=== PATIENT | male | born 1955 | race Caucasian/White ===

== ENCOUNTER 2017-04-03 19:25 | Emergency (ER) | payer SELFPAY ==
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
--- NOTE | 2017-04-03 21:00 | RADIOLOGY REPORT (SQ) ---
EXAM DESCRIPTION: CT HEAD WITHOUT COMPLETED DATE/TIME: 04/03/2017 8:51 pm REASON FOR STUDY: intoxicated, fall COMPARISON: None. TECHNIQUE: Axial images acquired through the brain without intravenous contrast. Images reviewed wi th bone, brain and subdural windows. Images stored on PACS. All CT scanners at this facility use dose modulation, iterative reconstruction, and/or weight based d osing when appropriate to reduce radiation dose to as low as reasonably achievable (ALARA). [facility]: Dose Right [facility]: CareDose [facility]: Dose Right [facility]: Teradose 4D [facility]: Smart [employer] RADIATION DOSE: Up-to-date CT equipment and radiation dose reduction techniques were employed. CTDIv ol: 64.6 mGy. DLP: 1163 mGy-cm. mGy. LIMITATIONS: None. FINDINGS: VENTRICLES: Prominent. CEREBRUM: No masses. No hemorrhage. No midline shift. Areas of low density in the white matter mos t likely due to chronic micro-vascular ischemic change. No evidence for acute infarction. CEREBELLUM: No masses. No hemorrhage. No alteration of density. No evidence for acute infarction. EXTRAAXIAL SPACES: Mild age-related involutional change. No fluid collections. No masses. ORBITS AND GLOBE: No intra- or extraconal masses. Normal contour of globe without masses. CALVARIUM: No fracture. PARANASAL SINUSES: No fluid or mucosal thickening. SOFT TISSUES: No mass or hematoma. OTHER: No other significant finding. IMPRESSION: MILD CHRONIC CHANGES OF ATROPHY AND MICROVASCULAR ISCHEMIA. NO ACUTE PROCESS. EVIDENCE OF ACUTE STROKE: NO. TECHNICAL DOCUMENTATION: JOB ID: [id number] Quality ID # [id number]: Final reports with documentation of one or more dose reduction techniques (e.g., Au tomated exposure control, adjustment of the mA and/or kV according to patient size, use of iterative reconstruction technique) 2010 [employer]- All Rights Reserved
--- NOTE | 2017-04-03 21:02 | RADIOLOGY REPORT (SQ) ---
EXAM DESCRIPTION: CT CERVICAL SPINE WITHOUT COMPLETED DATE/TIME: 04/03/2017 8:51 pm REASON FOR STUDY: intoxicated, fall COMPARISON: None. TECHNIQUE: Axial images acquired through the cervical spine without intravenous contrast. Images re viewed with lung, soft tissue and bone windows. Reconstructed coronal and sagittal MPR images review ed. Images stored on PACS. All CT scanners at this facility use dose modulation, iterative reconstruction, and/or weight based d osing when appropriate to reduce radiation dose to as low as reasonably achievable (ALARA). [facility]: Dose Right [facility]: CareDose [facility]: Dose Right [facility]: Teradose 4D [facility]: Smart [employer] RADIATION DOSE: Up-to-date CT equipment and radiation dose reduction techniques were employed. CTDIv ol: 34.3 mGy. DLP: 1384 mGy-cm. mGy. LIMITATIONS: Motion FINDINGS: ALIGNMENT: Anatomic. MINERALIZATION: Normal. VERTEBRAL BODIES: No fractures or dislocation. DISCS: No significant disc disease. FACETS, LATERAL MASSES, POSTERIOR ELEMENTS: No fractures. No dislocation. No acute findings. HARDWARE: None in the spine. VISUALIZED RIBS: No fractures. LUNG APICES AND SOFT TISSUES: No significant or acute findings. OTHER: No other significant finding. IMPRESSION: NO ACUTE OR SIGNIFICANT FINDINGS IN THE CERVICAL SPINE. TECHNICAL DOCUMENTATION: JOB ID: [id number] Quality ID # [id number]: Final reports with documentation of one or more dose reduction techniques (e.g., Au tomated exposure control, adjustment of the mA and/or kV according to patient size, use of iterative reconstruction technique) 2010 [employer]- All Rights Reserved
[2017-04-03 21:28] VITALS: BP 129/74
== END 2017-04-03 21:56 | disposition home or self-care (01) ==
LOC: ER 19:25
DX: S09.90XA Unspecified injury of head, initial encounter (principal); F10.920 Alcohol use, unspecified with intoxication, uncomplicated; M54.2 Cervicalgia; W19.XXXA Unspecified fall, initial encounter; V87.7XXA Person injured in collision between other specified motor vehicles (traffic), initial encounter
CPT/HCPCS: 70450; 72125; 99283

== ENCOUNTER 2017-04-05 16:18 | Emergency (ER) | payer SELFPAY ==
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
--- NOTE | 2017-04-05 17:38 | RADIOLOGY REPORT (SQ) ---
EXAM DESCRIPTION: CT CERVICAL SPINE WITHOUT COMPLETED DATE/TIME: 04/05/2017 5:25 pm REASON FOR STUDY: fall, [place] COMPARISON: 04/03/2017 TECHNIQUE: Axial images acquired through the cervical spine without intravenous contrast. Images re viewed with lung, soft tissue and bone windows. Reconstructed coronal and sagittal MPR images review ed. Images stored on PACS. All CT scanners at this facility use dose modulation, iterative reconstruction, and/or weight based d osing when appropriate to reduce radiation dose to as low as reasonably achievable (ALARA). [facility]: Dose Right [facility]: CareDose [facility]: Dose Right [facility]: Teradose 4D [facility]: Smart [employer] RADIATION DOSE: Up-to-date CT equipment and radiation dose reduction techniques were employed. CTDIv ol: 23.4 mGy. DLP: 559 mGy-cm. mGy. LIMITATIONS: None. FINDINGS: ALIGNMENT: Anatomic. MINERALIZATION: Normal. VERTEBRAL BODIES: No fractures or dislocation. DISCS: No significant disc disease. FACETS, LATERAL MASSES, POSTERIOR ELEMENTS: No fractures. No dislocation. No acute findings. HARDWARE: None in the spine. VISUALIZED RIBS: No fractures. LUNG APICES AND SOFT TISSUES: No significant or acute findings. OTHER: No other significant finding. IMPRESSION: NO ACUTE OR SIGNIFICANT FINDINGS IN THE CERVICAL SPINE. NO SIGNIFICANT CHANGE FROM 04/03. TECHNICAL DOCUMENTATION: JOB ID: [id number] Quality ID # [id number]: Final reports with documentation of one or more dose reduction techniques (e.g., Au tomated exposure control, adjustment of the mA and/or kV according to patient size, use of iterative reconstruction technique) 2010 [employer]- All Rights Reserved
--- NOTE | 2017-04-05 17:48 | RADIOLOGY REPORT (SQ) ---
EXAM DESCRIPTION: CT HEAD WITHOUT COMPLETED DATE/TIME: 04/05/2017 5:25 pm REASON FOR STUDY: fall, [place] COMPARISON: None. TECHNIQUE: Axial images acquired through the brain without intravenous contrast. Images reviewed wi th bone, brain and subdural windows. Images stored on PACS. All CT scanners at this facility use dose modulation, iterative reconstruction, and/or weight based d osing when appropriate to reduce radiation dose to as low as reasonably achievable (ALARA). [facility]: Dose Right [facility]: CareDose [facility]: Dose Right [facility]: Teradose 4D [facility]: Smart [employer] RADIATION DOSE: Up-to-date CT equipment and radiation dose reduction techniques were employed. CTDIv ol: 49.0 mGy. DLP: 881 mGy-cm. mGy. LIMITATIONS: None. FINDINGS: VENTRICLES: Normal size and contour. CEREBRUM: No masses. No hemorrhage. No midline shift. No evidence for acute infarction. Normal gra y/white matter differentiation. No areas of low density in the white matter. CEREBELLUM: No masses. No hemorrhage. No alteration of density. No evidence for acute infarction. EXTRAAXIAL SPACES: No fluid collections. No masses. ORBITS AND GLOBE: No intra- or extraconal masses. Normal contour of globe without masses. CALVARIUM: No fracture. PARANASAL SINUSES: No fluid or mucosal thickening. SOFT TISSUES: There appears to be a small left parietal scalp hematoma. OTHER: No other significant finding. IMPRESSION: The small left parietal scalp hematoma with no acute intracranial pathology. EVIDENCE OF ACUTE STROKE: NO. COMMENT: Quality ID # [id number]: Final reports with documentation of one or more dose reduction techniques (e.g., Automated exposure control, adjustment of the mA and/or kV according to patient size, use of iterative reconstruction technique) TECHNICAL DOCUMENTATION: JOB ID: [id number] 0054[employer]- All Rights Reserved
[2017-04-05] MEDS ORDERED: NORMAL SALINE 1000 ML 1,000 ML IV ONE (18:36)
[2017-04-05] MEDS ORDERED: THIAMINE HCL 100 MG, FOLIC ACID 1 MG in NORMAL SALINE 250 ML IV ONE (18:36)
[2017-04-05] MEDS ORDERED: DIPH/PERTUSS(ACELL)/TETANUS VAC/PF 0.5 ML SYR (>=10YO) IM ONE (18:50)
[2017-04-05 20:16] VITALS: BP 146/89
== END 2017-04-05 20:22 | disposition home or self-care (01) ==
LOC: ER 16:18
DX: S01.01XA Laceration without foreign body of scalp, initial encounter (principal); S80.811A Abrasion, right lower leg, initial encounter; S80.812A Abrasion, left lower leg, initial encounter; S40.811A Abrasion of right upper arm, initial encounter; S40.812A Abrasion of left upper arm, initial encounter; W19.XXXA Unspecified fall, initial encounter; F10.120 Alcohol abuse with intoxication, uncomplicated; Y90.6 Blood alcohol level of 120-199 mg/100 ml; F17.200 Nicotine dependence, unspecified, uncomplicated; Z78.1 Physical restraint status
CPT/HCPCS: 99285; 96360; 90471; 70450; 72125; 90715; J7030

== ENCOUNTER 2017-05-13 12:55 | Emergency (ER) | payer SELFPAY ==
--- NOTE | 2017-05-13 13:02 | ER Document Report ---
ED General - General Stated Complaint: UNRESPONSIVE Time Seen by Provider: 05/13/17 13:00 Cannot obtain history due to: Unstable vital signs, Altered mental status Notes: 62 old man brought in unresponsive after not being seen for 3 days. Found on the ground. No gaze preference. Sugar normal, tachycardic and dry per EMS. No IV. Blood sugar normal. No other history available. - Related Data Allergies/Adverse Reactions: No Known Allergies Allergy (Unverified 04/05/17 17:03) Past Medical History - Social History Smoking Status: Unknown if Ever Smoked Family History: Reviewed & Not Pertinent - Immunizations Hx Diphtheria, Pertussis, Tetanus Vaccination: - pt unsure Review of Systems - Review of Systems Notes: REVIEW OF SYSTEMS Could not obtain secondary to altered mental status PHYSICAL EXAMINATION General: Smells of urine malodorous Head: Right occipital abrasion hematoma ENT: Mouth dry normal teeth no trauma Eyes: Caked eye discharge. Pupils equal and reactive. Neck: No JVD, supple, no guarding CVS: N a cardiac regular rhythm, no murmurs Resp: No resp distress, equal and normal breath sounds bilaterally GI: Nondistended, soft, no tenderness to palpation, no rebound or guarding Ext: No deformities, no edema, normal range of motion in upper and lower ext Back: No CVA or midline TTP Skin: No rash, warm. Macerated left arm as if patient was lying on it for long period of time. Lymphatic: No lymphadeopathy noted Neuro: GCS eyes: 3, verbal: 1, motor: 5. Moves all extremities. Initially possible left facial droop.. Course - Re-evaluation Re-evalutation: 05/13/17 13:01 Found down altered mental status differential includes stroke metabolic normality dehydration sepsis hypothermia alcohol intoxication withdrawal, trauma. Initial management will include 2 IVs warm saline, blood cultures and lactic, 05/13/17 13:02 will give empiric antibiotics, scan had a negative chest x-ray get urinalysis and Aaron. Will be observed very carefully in the ED. Airway is intact at this time with no need for airway management. 05/13/17 13:29 Identified a subdural that looks chronic with some shift on the CT. Will prepare to intubate. Spoke with [facility] at 1:28 PM will get trauma. 05/13/17 13:47 Pelvis x-ray does not show fracture. After identifying subdural I arrange transfer. Helicopter on the way. Accepted by Dr. Jeronimo to be LEXX. Intubated without issue see procedure note. Pending chest x-ray. Patient stable. Labs significant for lactic acidosis, likely from dehydration although there is no evidence of infection. Continue fluids. Stable for transfer. - Laboratory Result Diagrams: 05/13/17 12:57 05/13/17 12:57 Laboratory results interpreted by me: 05/13/17 05/13/17 05/13/17 12:57 12:57 13:02 WBC 11.9 H MCV 100 H MCH 34.3 H Seg Neutrophils % 80.3 H Lymphocytes % 6.5 L Absolute Neutrophils 9.5 H Absolute Monocytes 1.5 H POC Glucose 152 H Lactic Acid 3.9 H Urine Protein Urine Glucose (UA) Urine Ketones Urine Blood Urine Urobilinogen 05/13/17 13:08 WBC MCV MCH Seg Neutrophils % Lymphocytes % Absolute Neutrophils Absolute Monocytes POC Glucose Lactic Acid Urine Protein 30 H Urine Glucose (UA) 50 H Urine Ketones 80 H Urine Blood MODERATE H Urine Urobilinogen 4.0 H - Diagnostic Test Radiology reviewed: Image reviewed, Reports reviewed Procedures - Intubation Orotracheal Time of Intubation: 13:45 Airway evaluation: Normal anatomy Mallampati Classification: Class 1 Medications: Etomidate, Other - Rocuronium Intubation method: Orotracheal Blade type: Ramos Blade size: 3 Equipment used: Glidescope ETT size: 7.5 ETT secured at: Teeth ETT secured at (cm): 23 End tidal CO2 confirmed: Yes Ventilator settings: AC Critical Care Note - Critical Care Note Total time excluding time spent on procedures (mins): 40 Comments: The above patient is critically ill. Not including procedures, but including direct re-evaluations, speaking with patient and/or consultants, interpreting results, and documenting, I spent the total amount of minute listed listed above on critical care time
[2017-05-13 13:17] LABS: PROTHROMBIN TIME 13.5 SEC (11.4-15.4)
[2017-05-13 13:18] LABS: PARTIAL THROMBOPLASTIN TIME 30.9 SEC (23.5-35.8)
[2017-05-13 13:20] LABS: ABSOLUTE LYMPHOCYTES (AUTO) 0.8 10^3/uL (0.5-4.7); ABSOLUTE MONOCYTES (AUTO) 1.5 10^3/uL (0.1-1.4); ABSOLUTE NEUT (AUTO) 9.5 10^3/uL (1.7-8.2); BASOPHILS % (AUTO) 0.2 % (0-2); HEMATOCRIT 48.3 % (37.9-51.0); HEMOGLOBIN 16.6 g/dL (13.5-17.0); HGB HCT DIFFERENCE 1.5; LYMPHOCYTES % (AUTO) 6.5 % (13-45); MEAN CORPUSCULAR HEMOGLOBIN 34.3 pg (27.0-33.4); MEAN CORPUSCULAR HGB CONC 34.4 g/dL (32.0-36.0); MEAN CORPUSCULAR VOLUME 100 fl (80-97); RED BLOOD COUNT 4.84 10^6/uL (4.35-5.55); RED CELL DISTRIBUTION WIDTH 12.6 % (11.5-14.0); SEGMENTED NEUTROPHILS % (AUTO) 80.3 % (42-78); WHITE BLOOD COUNT 11.9 10^3/uL (4.0-10.5)
[2017-05-13] MEDS ORDERED: ROCURONIUM BROMIDE INJ 50 MG/5 ML VIAL IV ONE ×2 (13:28→20:13)
[2017-05-13] MEDS ORDERED: ETOMIDATE INJ/PF 20 MG/10 ML SDV IV ONE (13:28)
[2017-05-13] MEDS ORDERED: PROPOFOL 100 ML IV PRN (13:31)
[2017-05-13 13:39] LABS: ALANINE AMINOTRANSFERASE 65 U/L (21-72); ALBUMIN 4.1 g/dL (3.5-5.0); ALKALINE PHOSPHATASE 150 U/L (38-126); ANION GAP 14 (5-19); ASPARTATE AMINO TRANSFERASE 141 U/L (17-59); BILIRUBIN,TOTAL 1.6 mg/dL (0.2-1.3); BLOOD UREA NITROGEN 23 mg/dL (7-20); CALCIUM 10.3 mg/dL (8.4-10.2); CARBON DIOXIDE 25 mmol/L (22-30); CHLORIDE 102 mmol/L (98-107); CREATININE RESULT 0.85 mg/dL (0.52-1.25); GLUCOSE 189 mg/dL (75-110); POTASSIUM 4.9 mmol/L (3.6-5.0); SODIUM 141.4 mmol/L (137-145); TOTAL PROTEIN 7.6 g/dL (6.3-8.2)
[2017-05-13 13:39] LABS: APPEARANCE,URINE CLEAR; BILIRUBIN,URINE NEGATIVE (NEGATIVE); GLUCOSE, URINE 50 mg/dL (NEGATIVE); KETONES,URINE 80 mg/dL (NEGATIVE); LEUKOCYTE ESTERASE,URINE NEGATIVE (NEGATIVE); NITRITE,URINE NEGATIVE (NEGATIVE); PROTEIN,URINE 30 mg/dL (NEGATIVE)
--- NOTE | 2017-05-13 13:56 | RADIOLOGY REPORT (SQ) ---
EXAM DESCRIPTION: CT CERVICAL SPINE WITHOUT COMPLETED DATE/TIME: 05/13/2017 1:37 pm REASON FOR STUDY: bed t1 s/p fall per dr sol COMPARISON: None. TECHNIQUE: Axial images acquired through the cervical spine without intravenous contrast. Images re viewed with lung, soft tissue and bone windows. Reconstructed coronal and sagittal MPR images review ed. Images stored on PACS. All CT scanners at this facility use dose modulation, iterative reconstruction, and/or weight based d osing when appropriate to reduce radiation dose to as low as reasonably achievable (ALARA). [facility]: Dose Right [facility]: CareDose [facility]: Dose Right [facility]: Teradose 4D [facility]: [employer] RADIATION DOSE: Up-to-date CT equipment and radiation dose reduction techniques were employed. CTDIv ol: 24.0 mGy. DLP: 466 mGy-cm. mGy. LIMITATIONS: None. FINDINGS: ALIGNMENT: Anatomic. MINERALIZATION: Normal. VERTEBRAL BODIES: No fractures or dislocation. DISCS: Multilevel disc space narrowing with osteophytes. FACETS, LATERAL MASSES, POSTERIOR ELEMENTS: Facet arthropathy. No fractures. No dislocation. No ac yadira findings. HARDWARE: None in the spine. VISUALIZED RIBS: No fractures. LUNG APICES AND SOFT TISSUES: No significant or acute findings. OTHER: No other significant finding. IMPRESSION: CHRONIC DEGENERATIVE CHANGES. NO ACUTE FINDINGS. TECHNICAL DOCUMENTATION: JOB ID: [id number] Quality ID # [id number]: Final reports with documentation of one or more dose reduction techniques (e.g., Au tomated exposure control, adjustment of the mA and/or kV according to patient size, use of iterative reconstruction technique) 2010 [employer]- All Rights Reserved
--- NOTE | 2017-05-13 14:00 | RADIOLOGY REPORT (SQ) ---
EXAM DESCRIPTION: CT HEAD WITHOUT COMPLETED DATE/TIME: 05/13/2017 1:37 pm REASON FOR STUDY: bed t1 s/p fall per dr sol COMPARISON: 04/05/2017 TECHNIQUE: Axial images acquired through the brain without intravenous contrast. Images reviewed wi th bone, brain and subdural windows. Images stored on PACS. All CT scanners at this facility use dose modulation, iterative reconstruction, and/or weight based d osing when appropriate to reduce radiation dose to as low as reasonably achievable (ALARA). [facility]: Dose Right [facility]: CareDose [facility]: Dose Right [facility]: Teradose 4D [facility]: Smart [employer] RADIATION DOSE: Up-to-date CT equipment and radiation dose reduction techniques were employed. CTDIv ol: 64.6 mGy. DLP: 1292 mGy-cm. mGy. LIMITATIONS: None. FINDINGS: VENTRICLES: Normal size and contour. CEREBRUM: There is a large left subdural hematoma resulting in significant midline shift to the right . This fluid collection has the appearance of being subacute, being hypodense compared to the brain and hyperdense compared CSF. This fluid collection measures 2 cm in depth on image 26 series 2. Norm al mendez/white matter differentiation. No areas of low density in the white matter. CEREBELLUM: No masses. No hemorrhage. No alteration of density. No evidence for acute infarction. EXTRAAXIAL SPACES: No fluid collections. No masses. ORBITS AND GLOBE: No intra- or extraconal masses. Normal contour of globe without masses. CALVARIUM: No fracture. PARANASAL SINUSES: No fluid or mucosal thickening. SOFT TISSUES: No mass or hematoma. OTHER: No other significant finding. IMPRESSION: Subacute large left subdural hematoma with significant mass effect. Age is likely to be 10 to 14 days. EVIDENCE OF ACUTE STROKE: NO. COMMENT: Quality ID # 436: Final reports with documentation of one or more dose reduction techniques (e.g., Automated exposure control, adjustment of the mA and/or kV according to patient size, use of iterative reconstruction technique) TECHNICAL DOCUMENTATION: JOB ID: [id number] [id number]- All Rights Reserved
[2017-05-13 14:12] LABS: ALCOHOL < 10 mg/dL (NONE DETECTED); CREATINE KINASE 3854 U/L (55-170)
--- NOTE | 2017-05-13 14:32 | RADIOLOGY REPORT (SQ) ---
EXAM DESCRIPTION: CHEST SINGLE VIEW COMPLETED DATE/TIME: 05/13/2017 2:03 pm REASON FOR STUDY: bed t1 s/p fall per dr sol COMPARISON: None. NUMBER OF VIEWS: One view. TECHNIQUE: Single frontal radiographic image of the chest acquired. LIMITATIONS: None. FINDINGS: LUNGS AND PLEURA: Small left pleural effusion. No pneumothorax. MEDIASTINUM AND HEART: Normal. SUPPORT DEVICES: Endotracheal tube tip between thoracic inlet and david. Nasogastric tube extends i nto the left upper quadrant. BONY STRUCTURES: No acute findings. HARDWARE: None. OTHER: No other significant finding. IMPRESSION: Good position of support apparatus. No pneumothorax.
--- NOTE | 2017-05-13 14:50 | RADIOLOGY REPORT (SQ) ---
EXAM DESCRIPTION: PELVIS AP COMPLETED DATE/TIME: 05/13/2017 1:46 pm REASON FOR STUDY: ?hip fx COMPARISON: None. NUMBER OF VIEWS: One view TECHNIQUE: AP Pelvis LIMITATIONS: None. FINDINGS: Subtle cortical irregularity along the lateral margin of the femoral head. No displaced f racture. IMPRESSION: Possible occult fracture. No displaced fracture. TECHNICAL DOCUMENTATION: JOB ID: [id number] [employer]- All Rights Reserved
[2017-05-13 14:58] VITALS: BP 128/85
--- NOTE | 2017-05-13 23:54 | EKG REPORT ---
SEVERITY:- ABNORMAL ECG - SINUS TACHYCARDIA NONSPECIFIC T ABNORMALITIES, LATERAL LEADS CONSIDER INFERIOR MS AGE INDETERMINATE : Confirmed by: Valdemar Metz 13-May-2017 23:53:42
== END 2017-05-13 14:20 | disposition other institution (70) ==
LOC: ER 12:55
DX: S06.5X9A Traumatic subdural hemorrhage with loss of consciousness of unspecified duration, initial encounter (principal); X58.XXXA Exposure to other specified factors, initial encounter; R00.0 Tachycardia, unspecified; E87.2 Acidosis
CPT/HCPCS: 93005; 99291; 51702; 86900; 86901; 36415; 87040; 86850; 82962; 80307; 82550; 85025; 85610; 85730; 80053; 81001; 83605; 71010; 72170; 70450; 72125; 93010; 31500; J3490 ×2

== ENCOUNTER 2017-12-22 13:49 | Emergency (ER) | payer SELFPAY ==
[2017-12-22 14:02] LABS: ABSOLUTE BASOPHILS # (AUTO) 0.1 10^3/uL (0.0-0.2); ABSOLUTE EOSINOPHILS # (AUTO) 0.1 10^3/uL (0.0-0.6); ABSOLUTE LYMPHOCYTES (AUTO) 2.3 10^3/uL (0.5-4.7); ABSOLUTE MONOCYTES (AUTO) 0.8 10^3/uL (0.1-1.4); ABSOLUTE NEUT (AUTO) 3.9 10^3/uL (1.7-8.2); BASOPHILS % (AUTO) 0.9 % (0-2); EOSINOPHILS % (AUTO) 0.8 % (0-6); HEMOGLOBIN 15.6 g/dL (13.5-17.0); LYMPHOCYTES % (AUTO) 32.5 % (13-45); MEAN CORPUSCULAR HEMOGLOBIN 33.5 pg (27.0-33.4); MEAN CORPUSCULAR HGB CONC 34.6 g/dL (32.0-36.0); MEAN CORPUSCULAR VOLUME 97 fl (80-97); MONOCYTES % (AUTO) 11.1 % (3-13); PLATELET COUNT 252 10^3/uL (150-450); RED BLOOD COUNT 4.65 10^6/uL (4.35-5.55); SEGMENTED NEUTROPHILS % (AUTO) 54.7 % (42-78); TOTAL CELLS COUNTED % (AUTO) 100 %; WHITE BLOOD COUNT 7.1 10^3/uL (4.0-10.5)
[2017-12-22 14:19] LABS: ALANINE AMINOTRANSFERASE 41 U/L (21-72); ALBUMIN 3.5 g/dL (3.5-5.0); ALKALINE PHOSPHATASE 89 U/L (38-126); ANION GAP 15 (5-19); ASPARTATE AMINO TRANSFERASE 63 U/L (17-59); BILIRUBIN,DIRECT 0.2 mg/dL (0.0-0.4); BILIRUBIN,TOTAL 0.2 mg/dL (0.2-1.3); BLOOD UREA NITROGEN 10 mg/dL (7-20); CALCIUM 8.6 mg/dL (8.4-10.2); CARBON DIOXIDE 20 mmol/L (22-30); CHLORIDE 104 mmol/L (98-107); CREATINE KINASE 100 U/L (55-170); GLUCOSE 102 mg/dL (75-110); POTASSIUM 4.5 mmol/L (3.6-5.0); SODIUM 139.4 mmol/L (137-145); TOTAL PROTEIN 6.3 g/dL (6.3-8.2)
[2017-12-22 14:28] LABS: CREATINE KINASE MB 1.26 ng/mL (<4.55)
[2017-12-22 14:29] LABS: TROPONIN I < 0.012 ng/mL
--- NOTE | 2017-12-22 14:29 | ER Document Report ---
ED General - General Chief Complaint: Syncope Stated Complaint: GENERAL WEAKNESS Time Seen by Provider: 12/22/17 14:25 Notes: Patient brought in by EMS. Patient says that he fell this morning. Has abrasions to the right face and an abrasion of the right upper lip which looked to be fresh wounds. Says his neck hurts a little bit in the back. No loss of consciousness reported and no neurologic deficits or symptoms. Patient admits that he drinks alcohol, heavy at times. He has evidence of chronic falls with scrapes and scabs and bruises of varying age on all of his extremities. Complaining of chronic back pain, which is no different than usual for him. Patient lives with his brother. Does not take any medications for any medical conditions. 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 - Related Data Allergies/Adverse Reactions: No Known Allergies Allergy (Verified 12/22/17 17:22) Past Medical History - Social History Smoking Status: Current Every Day Smoker Chew tobacco use (# tins/day): No Frequency of alcohol use: Heavy Drug Abuse: None Family History: Reviewed & Not Pertinent Patient has suicidal ideation: No Patient has homicidal ideation: No - Medical History Medical History: Other - On no prescription medications for any medical condition. Musculoskeltal Medical History: Reports Other - Chronic back pain. Surgical Hx: Negative Past Surgical History: Reports: None - Immunizations Hx Diphtheria, Pertussis, Tetanus Vaccination: - pt unsure Review of Systems - Review of Systems Notes: REVIEW OF SYSTEMS: CONSTITUTIONAL : Denies fever. Patient says that he slipped and fell. Acknowledges drinking a large amount of alcohol, but says he does not do it often. EENT: Denies eye, ear, nose or mouth or throat pain or other symptoms. Cut of right upper lip. Speech sounds heard as if with alcohol. CARDIOVASCULAR: Denies chest pain. RESPIRATORY: Denies cough, chest congestion, or shortness of breath. GASTROINTESTINAL: Denies abdominal pain or nausea, vomiting, or diarrhea. GENITOURINARY: Denies difficulty or painful urinating, urinary frequency, blood in urine. MUSCULOSKELETAL: Denies back or neck pain. Denies joint pain or swelling. SKIN: Denies rash or skin lesions. Numerous scrapes and scabs and bruises of both legs and both arms. NEUROLOGICAL: Denies LOC or altered mental status. Just says he slipped and fell and hit his face. Denies headache. Denies sensory loss or motor deficits. ALL OTHER SYSTEMS REVIEWED AND NEGATIVE. Physical Exam - Vital signs Vitals: Temp 98.5 F 12/22/17 14:00 Interpretation: Normal - Notes Notes: PHYSICAL EXAMINATION: Laying on stretcher with hard cervical collar in place. Palpation around the collar reveals minimal or no tenderness of the posterior C- spine region. Vital signs are all normal. Answers questions appropriately. GENERAL: Well-appearing, in no acute distress. HEAD: Atraumatic, normocephalic. Superficial abrasions to the right side of the face, to the right yarsani region and to the right zygoma area. EYES: Pupils equal round and reactive to light, extraocular movements intact. ENT: oropharynx clear without exudates. Moist mucous membranes. Patient has several small abrasions of the right upper lip which has had some bleeding, but does not appear to have any cuts that require sutures. NECK: Normal range of motion, supple. LUNGS: Breath sounds clear and equal bilaterally. HEART: Regular rate and rhythm without murmurs. ABDOMEN: Soft, nontender. No guarding or rebound. No masses. BACK: No tenderness throughout entire back. EXTREMITIES: Normal range of motion without pain. NEUROLOGICAL: Normal speech, normal gait. Normal sensory, motor, and reflex exams. Awake, alert, and oriented x3. Cranial nerves normal. PSYCH: Normal mood, normal affect. SKIN: Warm, dry, no rashes. Course - Re-evaluation Re-evalutation: 12/22/17 19:39 Because of patient's alcohol level of approximately 250, and no one to pick him up and take him home, I have kept the patient here long enough for his alcohol level to be down to not intoxicated by about 10 PM this evening. - Vital Signs Vital signs: Temp Pulse Resp BP Pulse Ox 98.5 F 76 15 115/62 95 12/22/17 14:00 12/22/17 14:06 12/22/17 19:00 12/22/17 19:00 12/22/17 19:00 - Laboratory Result Diagrams: 12/22/17 13:52 12/22/17 13:52 Laboratory results interpreted by me: 12/22/17 12/22/17 13:52 13:52 MCH 33.5 H Carbon Dioxide 20 L AST 63 H Discharge - Discharge Clinical Impression: Fall, Facial abrasion, Contusion of head, Alcohol intoxication Condition: Stable Disposition: HOME, SELF-CARE Additional Instructions: ACUTE ALCOHOL INTOXICATION and ALCOHOL ABUSE: Your evaluation revealed very high levels of alcohol. You can from drinking a large amount of alcohol rapidly! Further, there's the risk of falls , traffic accidents, and fights. A high portion (about 50 percent) of the serious injuries seen in hospital emergency rooms are caused by alcohol. Alcohol overdosage is usually due to an underlying emotional or psychiatric problem. You may benefit from counselling. If "binge" drinking is an ongoing problem for you, or if you drink ANY AMOUNT of alcohol EVERY day, you most likely have a tendency to alcoholism. You should avoid alcohol totally. We can refer you for treatment. Persons with alcohol problems are often also prone to other addictions -- you should discuss any use of medications or drugs with the doctor. You should be watched at home for the next several hours by someone who has not been drinking. Get extra fluids for the next 24 hours. Call the doctor if there is repeated vomiting, increasing headache, decreasing level of alertness, or any other worsening. HEAD INJURY PRECAUTIONS: At this point, there is no evidence that your head injury is serious. Observation is necessary, however. Take only clear liquids for the first few hours, unless told otherwise by the doctor. If no pain medication was prescribed, you may take acetaminophen according to the directions on the bottle. Do not take any medication that may alter your level of alertness (unless you've discussed it with the doctor first) . Limit activity for the first 24 hours. Bed rest is best. During the first 24 hours, check to see approximately every two to three hours that the patient is easily arousable, responds normally, and can perform common tasks such as walking without difficulty. Contact your doctor or go to the hospital if any of the following things occur: Persistent vomiting, difficulty in arousing the patient, worsening or continued headache, or failure to improve as expected. Head injuries can cause symptoms that persist for a few days or even a few weeks. NECK INJURY (CERVICAL STRAIN): You have a neck strain. This is an injury to the muscles and ligaments in the neck. There is no evidence of a fracture of the neck bones. Also, no injury to the spinal cord or nerve roots was detected. Usually, stiffness and pain INCREASE for the first 24-48 hours after the injury. The pain will gradually resolve and the neck will become more mobile. Most patients are back at work or school within a few days. Typically, complete healing takes about two or three weeks. The usual initial treatment is rest and cold packs. A neck collar may be placed to keep the muscles of the neck at rest. Antiinflammatory and muscle relaxing medication are often used to reduce the spasm and irritation. You should call the doctor, or go to the hospital, if you develop numbness or weakness in any extremity, problems with your bladder or bowel, or pain radiating down the arms. CONTUSION: Your injury has resulted in a contusion -- a crushing of the deep tissues. No injury to important structures was detected during the physician's exam. Contusions vary in the amount of pain they cause, and in the length of time required for healing. Typically, the area will become bruised, and will remain painful to touch for two or three weeks. However, most patients are back to working and playing within a few days. After the initial period of rest and cold-packs, your symptoms (together with the doctor's recommendations) will determine how rapidly you can get back to full activity. Usually this means "do what feels okay, but don't do things that hurt." If re-examination was recommended, it's important to follow up as instructed. Call the doctor or return any time if pain increases, if swelling becomes severe, if you develop numbness or weakness in an injured extremity, or if any other alarming symptoms occur. ABRASIONS: An abrasion is a scraping injury of the skin. Some scarring may result. The seriousness of an abrasion is not always obvious at first. Hidden tissue damage may be present and infection may occur despite proper care. Complete healing may take from ten days to as long as a month. The healing time depends on the depth of the abrasion, and on the amount of crushing of underlying tissues from the injury. Keep the wound and dressing clean. Do not shower or bathe the area until okayed by the doctor. If the dressing gets wet, remove it and blot the wound dry, then reapply a clean dressing. Dressings should be changed every day. Sunscreen should be used for six months after the skin is healed. If any signs of infection occur (swelling, redness, increasing tenderness, red streaks, profuse purulent drainage from the abrasion, tender lumps in the armpit or groin above the abrasion, or fever), see the doctor immediately. LOW BACK PAIN: Three out of every four people will have an episode of disabling back pain during their lifetime. Most commonly the pain is due to straining of the muscles and ligaments in the low back. Usual treatment includes: (1) Rest on a firm surface. Avoid lying on your stomach. (2) Ice pack the painful area. After a few days, gentle heat may be used intermittently to relax the area, or ice packs can be continued. (3) Medication may be needed -- muscle relaxers and antiinflammatory medicines are commonly used. (4) As the back improves, exercises are prescribed to strengthen the back and abdominal muscles. Your doctor will advise you on the proper care for your back at each stage in your recovery. You may be better in a few days -- or healing may take several weeks. If new symptoms of a "herniated disc" (radiation of pain, numbness, or tingling down the back of the leg or weakness in the leg) occur, you should be re-examined. Further testing may be necessary. USE OF TYLENOL (ACETAMINOPHEN): Acetaminophen may be taken for pain relief or fever control. It's much safer than aspirin, offering a wider range of "safe" dosages. It is safe during . Some brand names are Tylenol, Panadol, Datril, Anacin 3, Tempra, and Liquiprin. Acetaminophen can be repeated every four hours. The following are maximum recommended dosages: WEIGHT Dose Drops Elixir Chewable( 80mg) (LBS.) drprs=droppers tsp=teaspoon >89 pounds or adults 650 mg to 900 mg Acetaminophen can be repeated every four hours. Maximum dose not to exceed 4000 mg a day. These maximum recommended dosages are slightly higher than the dosages written on the product container, but these dosages are very safe and below the toxic dosage for acetaminophen. NON-SUTURED LACERATION: Your laceration did not require suturing. Some lacerations cannot be sutured because of increased infection risk, while others simply don't need stitches because they are shallow or very short. Your injury should be protected while it heals. Usually complete healing takes 10 to 14 days. Keep the dressing clean and dry, and change it every day. If you notice increasing pain, redness, swelling, drainage, or tender lumps in the armpit or groin above the injury, infection may be present. You should call the doctor at once. FOLLOW-UP CARE: If you have been referred to a physician for follow-up care, call the physician s office for an appointment as you were instructed or within the next two days. If you experience worsening or a significant change in your symptoms, notify the physician immediately or return to the Emergency Department at any time for re-evaluation.
--- NOTE | 2017-12-22 15:21 | RADIOLOGY REPORT (SQ) ---
EXAM DESCRIPTION: CT CERVICAL SPINE WITHOUT; CT HEAD WITHOUT COMPLETED DATE/TIME: 12/22/2017 3:08 pm REASON FOR STUDY: EtOH, fall, hit right head/face COMPARISON: None. TECHNIQUE: Axial images acquired through the brain and cervical spine without intravenous contrast. Images reviewed with brain, subdural, lung, soft tissue and bone windows. Reconstructed coronal and sagittal MPR images reviewed. Images stored on PACS. All CT scanners at this facility use dose modulation, iterative reconstruction, and/or weight based d osing when appropriate to reduce radiation dose to as low as reasonably achievable (ALARA). [facility]: Dose Right [facility]: CareDose [facility]: Dose Right [facility]: Teradose 4D [facility]: [employer] RADIATION DOSE: CT Rad equipment meets quality standard of care and radiation dose reduction techniq ues were employed. CTDIvol: 24.8 mGy. DLP: 530 mGy-cm.; CT Rad equipment meets quality standard of ca re and radiation dose reduction techniques were employed. CTDIvol: 53.2 mGy. DLP: 991 mGy-cm. mGy. LIMITATIONS: See below. FINDINGS: Brain: 05/13/2017 comparison. No hemorrhage or mass or shift. Normal appearance of CSF containing spaces. No skull fracture. Clear paranasal sinuses. Cervical spine: 2017 comparison. No malalignment or fracture. Soft tissues normal. IMPRESSION: 1. No acute intracranial abnormality. 2. No acute cervical spine abnormality. TECHNICAL DOCUMENTATION: JOB ID: [id number] Quality ID # [id number]: Final reports with documentation of one or more dose reduction techniques (e.g., Au tomated exposure control, adjustment of the mA and/or kV according to patient size, use of iterative reconstruction technique) 2010 [employer]- All Rights Reserved Reading location - IP/workstation name: [email or web address]
--- NOTE | 2017-12-22 15:21 | RADIOLOGY REPORT (SQ) ---
EXAM DESCRIPTION: CT CERVICAL SPINE WITHOUT; CT HEAD WITHOUT COMPLETED DATE/TIME: 12/22/2017 3:08 pm REASON FOR STUDY: EtOH, fall, hit right head/face COMPARISON: None. TECHNIQUE: Axial images acquired through the brain and cervical spine without intravenous contrast. Images reviewed with brain, subdural, lung, soft tissue and bone windows. Reconstructed coronal and sagittal MPR images reviewed. Images stored on PACS. All CT scanners at this facility use dose modulation, iterative reconstruction, and/or weight based d osing when appropriate to reduce radiation dose to as low as reasonably achievable (ALARA). [facility]: Dose Right [facility]: CareDose [facility]: Dose Right [facility]: Teradose 4D [facility]: [employer] RADIATION DOSE: CT Rad equipment meets quality standard of care and radiation dose reduction techniq ues were employed. CTDIvol: 24.8 mGy. DLP: 530 mGy-cm.; CT Rad equipment meets quality standard of ca re and radiation dose reduction techniques were employed. CTDIvol: 53.2 mGy. DLP: 991 mGy-cm. mGy. LIMITATIONS: See below. FINDINGS: Brain: 05/13/2017 comparison. No hemorrhage or mass or shift. Normal appearance of CSF containing spaces. No skull fracture. Clear paranasal sinuses. Cervical spine: 2017 comparison. No malalignment or fracture. Soft tissues normal. IMPRESSION: 1. No acute intracranial abnormality. 2. No acute cervical spine abnormality. TECHNICAL DOCUMENTATION: JOB ID: [id number] Quality ID # [id number]: Final reports with documentation of one or more dose reduction techniques (e.g., Au tomated exposure control, adjustment of the mA and/or kV according to patient size, use of iterative reconstruction technique) 2010 [employer]- All Rights Reserved Reading location - IP/workstation name: [email or web address]
[2017-12-22 15:22] LABS: APPEARANCE,URINE CLEAR; BILIRUBIN,URINE NEGATIVE (NEGATIVE); COLOR,URINE STRAW; GLUCOSE, URINE NEGATIVE (NEGATIVE); KETONES,URINE NEGATIVE (NEGATIVE); LEUKOCYTE ESTERASE,URINE NEGATIVE (NEGATIVE); NITRITE,URINE NEGATIVE (NEGATIVE); PROTEIN,URINE NEGATIVE (NEGATIVE); URINE SPECIFIC GRAVITY 1.003; UROBILINOGEN,URINE NEGATIVE mg/dL (<2.0)
[2017-12-22 21:59] VITALS: BP 123/81
--- NOTE | 2017-12-23 07:48 | EKG REPORT ---
SEVERITY:- NORMAL ECG - SINUS RHYTHM : Confirmed by: Alfred Hurt MD 23-Dec-2017 07:47:52
== END 2017-12-22 22:28 | disposition home or self-care (01) ==
LOC: ER 13:49
DX: S00.511A Abrasion of lip, initial encounter (principal); S00.81XA Abrasion of other part of head, initial encounter; M54.2 Cervicalgia; W01.0XXA Fall on same level from slipping, tripping and stumbling without subsequent striking against object, initial encounter; M54.9 Dorsalgia, unspecified; G89.29 Other chronic pain; F17.200 Nicotine dependence, unspecified, uncomplicated; F10.129 Alcohol abuse with intoxication, unspecified
CPT/HCPCS: 36415; 70450; 72125; 80053; 80307; 81001; 82550; 82553; 84484; 85025; 93005; 93010; 99285

== ENCOUNTER 2017-12-25 12:11 | Emergency (ER) | payer SELFPAY ==
[2017-12-25 12:46] VITALS: BP 121/70
== END 2017-12-25 13:36 | disposition left against medical advice (07) ==
LOC: ER 12:11
DX: Z53.21 Procedure and treatment not carried out due to patient leaving prior to being seen by health care provider (principal)

== ENCOUNTER 2018-01-09 17:24 | Emergency (ER) | payer SELFPAY ==
[2018-01-09 17:34] VITALS: BP 145/85
--- NOTE | 2018-01-09 18:11 | ER Document Report ---
ED General - General Chief Complaint: ETOH Abuse Stated Complaint: HEAD INJURY Time Seen by Provider: 01/09/18 17:43 Notes: Patient says he tripped in his driveway and fell hitting the back of his head. He thinks he may have been unconscious. However, he denies any neurologic deficits at this time. Denies any neck pain. Only complains of pain in the back of his head. Has not vomited. Denies any chest or rib injuries. No chest pain. No shortness of breath. Denies any abdominal pains. Patient is able to stand without assistance. He acknowledges drinking alcohol today. Has not worked for the past couple of weeks. TRAVEL OUTSIDE OF THE [place] IN LAST 30 DAYS: No - Related Data Allergies/Adverse Reactions: No Known Allergies Allergy (Verified 01/09/18 17:37) Past Medical History - Social History Smoking Status: Current Every Day Smoker Frequency of alcohol use: Heavy Lives with: Family - Brother Family History: Reviewed & Not Pertinent Patient has suicidal ideation: No Patient has homicidal ideation: No - Past Medical History Cardiac Medical History: Reports: None Neurological Medical History: Denies: Hx Cerebrovascular Accident, Hx Seizures Endocrine Medical History: Denies: Hx Diabetes Mellitus Type 1 Skin Medical History: Reports Other - History of rosacea - Immunizations Hx Diphtheria, Pertussis, Tetanus Vaccination: - pt unsure Review of Systems - Review of Systems Notes: REVIEW OF SYSTEMS: CONSTITUTIONAL : Denies fever. EENT: Denies eye, ear, nose or mouth or throat pain or other symptoms. Complains of pain in the back of his head. CARDIOVASCULAR: Denies chest pain. RESPIRATORY: Denies cough, chest congestion, or shortness of breath. GASTROINTESTINAL: Denies abdominal pain or nausea, vomiting, or diarrhea. GENITOURINARY: Denies difficulty or painful urinating, urinary frequency, blood in urine. MUSCULOSKELETAL: Denies back or neck pain. Denies joint pain or swelling. SKIN: Denies rash or skin lesions. Old abrasions and skin tears of the dorsal aspect of the . NEUROLOGICAL: Not sure if LOC, but denies altered mental status. Some mild headache. Denies sensory loss or motor deficits. ALL OTHER SYSTEMS REVIEWED AND NEGATIVE. Physical Exam - Vital signs Vitals: Temp Pulse Resp BP Pulse Ox 98.8 F 98 16 145/85 H 98 01/09/18 17:33 01/09/18 17:33 06/28/18 17:33 01/09/18 17:33 01/09/18 17:33 Interpretation: Normal - Notes Notes: PHYSICAL EXAMINATION: GENERAL: Well-appearing, in no acute distress. Awake and alert and answers questions and follows commands appropriately. HEAD: Patient has a modest size abrasion with some soft tissue swelling in the mid occipital region of the scalp. It is tender to the touch. The skin is slightly abraded in the middle, but does not require sutures. EYES: Pupils equal round and reactive to light, extraocular movements intact. ENT: oropharynx clear without exudates. Moist mucous membranes. NECK: Normal range of motion, supple. LUNGS: Breath sounds clear and equal bilaterally. No rib tenderness. HEART: Regular rate and rhythm without murmurs. ABDOMEN: Soft, nontender. No guarding or rebound. No masses. BACK: No tenderness throughout entire back except where he has some mild tenderness over about 3 or 4 dark, blackish blue bruises in the right lower posterior flank and upper buttock hip region. Upper back in the thoracic region as some very superficial erythematous abrasions overlying the right scapular region of that thoracic back. No significant tenderness of that portion of the right upper back. EXTREMITIES: Normal range of motion without pain. Patient has quite a few excoriations and abrasions on his extremities. Most of them are superficial but a couple of deeper abrasions with old blood on the abrasions are noted on the left dorsal forearm. 1 of those more distally located has had a small 1 cm chunk of scab knocked loose and it is oozing slight amount of fresh looking blood. He has a 1 cm laceration at the tip of his left olecranon. No sutures needed. Full range of motion of the left elbow with no indications of any bony injury. NEUROLOGICAL: Normal speech, normal gait. Normal sensory, motor, and reflex exams. Awake, alert, and oriented x3. Cranial nerves normal. PSYCH: Normal mood, normal affect. SKIN: Warm, dry, no rashes. Course - Vital Signs Vital signs: Temp Pulse Resp BP Pulse Ox 98.8 F 98 16 145/85 H 98 01/09/18 17:33 01/09/18 17:33 01/09/18 17:33 01/09/18 17:33 01/09/18 17:33 Discharge - Discharge Clinical Impression: Fall, Contusion of head, Abrasion of scalp, Abrasions of multiple sites, Laceration of elbow Condition: Stable Disposition: HOME, SELF-CARE Additional Instructions: HEAD INJURY PRECAUTIONS: At this point, there is no evidence that your head injury is serious. Observation is necessary, however. Take only clear liquids for the first few hours, unless told otherwise by the doctor. If no pain medication was prescribed, you may take acetaminophen according to the directions on the bottle. Do not take any medication that may alter your level of alertness (unless you've discussed it with the doctor first) . Limit activity for the first 24 hours. Bed rest is best. During the first 24 hours, check to see approximately every two to three hours that the patient is easily arousable, responds normally, and can perform common tasks such as walking without difficulty. Contact your doctor or go to the hospital if any of the following things occur: Persistent vomiting, difficulty in arousing the patient, worsening or continued headache, or failure to improve as expected. Head injuries can cause symptoms that persist for a few days or even a few weeks. NECK INJURY (CERVICAL STRAIN): You have a neck strain. This is an injury to the muscles and ligaments in the neck. There is no evidence of a fracture of the neck bones. Also, no injury to the spinal cord or nerve roots was detected. Usually, stiffness and pain INCREASE for the first 24-48 hours after the injury. The pain will gradually resolve and the neck will become more mobile. Most patients are back at work or school within a few days. Typically, complete healing takes about two or three weeks. The usual initial treatment is rest and cold packs. A neck collar may be placed to keep the muscles of the neck at rest. Antiinflammatory and muscle relaxing medication are often used to reduce the spasm and irritation. You should call the doctor, or go to the hospital, if you develop numbness or weakness in any extremity, problems with your bladder or bowel, or pain radiating down the arms. CONTUSION: Your injury has resulted in a contusion -- a crushing of the deep tissues. No injury to important structures was detected during the physician's exam. Contusions vary in the amount of pain they cause, and in the length of time required for healing. Typically, the area will become bruised, and will remain painful to touch for two or three weeks. However, most patients are back to working and playing within a few days. After the initial period of rest and cold-packs, your symptoms (together with the doctor's recommendations) will determine how rapidly you can get back to full activity. Usually this means "do what feels okay, but don't do things that hurt." If re-examination was recommended, it's important to follow up as instructed. Call the doctor or return any time if pain increases, if swelling becomes severe, if you develop numbness or weakness in an injured extremity, or if any other alarming symptoms occur. ABRASIONS: An abrasion is a scraping injury of the skin. Some scarring may result. The seriousness of an abrasion is not always obvious at first. Hidden tissue damage may be present and infection may occur despite proper care. Complete healing may take from ten days to as long as a month. The healing time depends on the depth of the abrasion, and on the amount of crushing of underlying tissues from the injury. Keep the wound and dressing clean. Do not shower or bathe the area until okayed by the doctor. If the dressing gets wet, remove it and blot the wound dry, then reapply a clean dressing. Dressings should be changed every day. Sunscreen should be used for six months after the skin is healed. If any signs of infection occur (swelling, redness, increasing tenderness, red streaks, profuse purulent drainage from the abrasion, tender lumps in the armpit or groin above the abrasion, or fever), see the doctor immediately. USE OF TYLENOL (ACETAMINOPHEN): Acetaminophen may be taken for pain relief or fever control. It's much safer than aspirin, offering a wider range of "safe" dosages. It is safe during . Some brand names are Tylenol, Panadol, Datril, Anacin 3, Tempra, and Liquiprin. Acetaminophen can be repeated every four hours. The following are maximum recommended dosages: WEIGHT Dose Drops Elixir Chewable( 80mg) (LBS.) drprs=droppers tsp=teaspoon >89 pounds or adults 650 mg to 900 mg Acetaminophen can be repeated every four hours. Maximum dose not to exceed 4000 mg a day. These maximum recommended dosages are slightly higher than the dosages written on the product container, but these dosages are very safe and below the toxic dosage for acetaminophen. NON-SUTURED LACERATION left elbow: Your laceration did not require suturing. Some lacerations cannot be sutured because of increased infection risk, while others simply don't need stitches because they are shallow or very short. Your injury should be protected while it heals. Usually complete healing takes 10 to 14 days. Keep the dressing clean and dry, and change it every day. If you notice increasing pain, redness, swelling, drainage, or tender lumps in the armpit or groin above the injury, infection may be present. You should call the doctor at once. FOLLOW-UP CARE: If you have been referred to a physician for follow-up care, call the physician s office for an appointment as you were instructed or within the next two days. If you experience worsening or a significant change in your symptoms, notify the physician immediately or return to the Emergency Department at any time for re-evaluation.
--- NOTE | 2018-01-09 18:30 | RADIOLOGY REPORT (SQ) ---
EXAM DESCRIPTION: CT HEAD WITHOUT COMPLETED DATE/TIME: 01/09/2018 6:15 pm REASON FOR STUDY: Fell and hit back of head,? LOC COMPARISON: 12/22/2017 TECHNIQUE: Axial images acquired through the brain without intravenous contrast. Images reviewed wi th bone, brain and subdural windows. Additional sagittal and coronal reconstructions were generated. Images stored on PACS. All CT scanners at this facility use dose modulation, iterative reconstruction, and/or weight based d osing when appropriate to reduce radiation dose to as low as reasonably achievable (ALARA). [facility]: Dose Right [facility]: CareDose [facility]: Dose Right [facility]: Teradose 4D [facility]: Smart [employer] RADIATION DOSE: CT Rad equipment meets quality standard of care and radiation dose reduction techniq ues were employed. CTDIvol: 53.2 mGy. DLP: 1070 mGy-cm. mGy. LIMITATIONS: None. FINDINGS: VENTRICLES: Normal size and contour. CEREBRUM: No masses. No hemorrhage. No midline shift. No evidence for acute infarction. Small area s of low density in the white matter most likely chronic small vessel ischemic changes. CEREBELLUM: No masses. No hemorrhage. No alteration of density. No evidence for acute infarction. EXTRAAXIAL SPACES: No fluid collections. No masses. ORBITS AND GLOBE: No intra- or extraconal masses. Normal contour of globe without masses. CALVARIUM: No fracture. Craniotomy changes on the left. PARANASAL SINUSES: No fluid or mucosal thickening. SOFT TISSUES: No mass or hematoma. OTHER: No other significant finding. IMPRESSION: Mild chronic microvascular ischemic changes. No acute intracranial imaging findings. EVIDENCE OF ACUTE STROKE: NO. COMMENT: Quality ID # 436: Final reports with documentation of one or more dose reduction techniques (e.g., Automated exposure control, adjustment of the mA and/or kV according to patient size, use of iterative reconstruction technique) TECHNICAL DOCUMENTATION: JOB ID: [id number] [employer]- All Rights Reserved Reading location - IP/workstation name: [email or web address]
--- NOTE | 2018-01-09 19:09 | RADIOLOGY REPORT (SQ) ---
EXAM DESCRIPTION: CT CERVICAL SPINE WITHOUT COMPLETED DATE/TIME: 01/09/2018 6:15 pm REASON FOR STUDY: Fell and hit back of head.? LOC COMPARISON: 12/22/2017 TECHNIQUE: Axial images acquired through the cervical spine without intravenous contrast. Images re viewed with lung, soft tissue and bone windows. Reconstructed coronal and sagittal MPR images review ed. Images stored on PACS. All CT scanners at this facility use dose modulation, iterative reconstruction, and/or weight based d osing when appropriate to reduce radiation dose to as low as reasonably achievable (ALARA). [facility]: Dose Right [facility]: CareDose [facility]: Dose Right [facility]: Teradose 4D [facility]: [employer] RADIATION DOSE: CT Rad equipment meets quality standard of care and radiation dose reduction techniq ues were employed. CTDIvol: 34.2 mGy. DLP: 788 mGy-cm. mGy. LIMITATIONS: None. FINDINGS: ALIGNMENT: Anatomic. MINERALIZATION: Normal. VERTEBRAL BODIES: No fractures or dislocation. DISCS: No significant disc disease. FACETS, LATERAL MASSES, POSTERIOR ELEMENTS: No fractures. No dislocation. No acute findings. HARDWARE: None in the spine. VISUALIZED RIBS: No fractures. LUNG APICES AND SOFT TISSUES: No significant or acute findings. OTHER: No other significant finding. IMPRESSION: NO ACUTE OR SIGNIFICANT FINDINGS IN THE CERVICAL SPINE. TECHNICAL DOCUMENTATION: JOB ID: [id number] Quality ID # [id number]: Final reports with documentation of one or more dose reduction techniques (e.g., Au tomated exposure control, adjustment of the mA and/or kV according to patient size, use of iterative reconstruction technique) 2010 [employer]- All Rights Reserved Reading location - IP/workstation name: [email or web address]
== END 2018-01-09 19:36 | disposition home or self-care (01) ==
LOC: ER 17:24
DX: S51.012A Laceration without foreign body of left elbow, initial encounter (principal); S00.93XA Contusion of unspecified part of head, initial encounter; S30.0XXA Contusion of lower back and pelvis, initial encounter; S20.411A Abrasion of right back wall of thorax, initial encounter; R51 Headache; W01.0XXA Fall on same level from slipping, tripping and stumbling without subsequent striking against object, initial encounter; Y92.008 Other place in unspecified non-institutional (private) residence as the place of occurrence of the external cause; F17.200 Nicotine dependence, unspecified, uncomplicated
CPT/HCPCS: 70450; 72125; 99284

== ENCOUNTER 2018-01-13 11:48 | Inpatient (IN) | payer SELFPAY ==
--- NOTE | 2018-01-13 12:07 | RADIOLOGY REPORT (SQ) ---
EXAM DESCRIPTION: CHEST SINGLE VIEW COMPLETED DATE/TIME: 01/13/2018 11:59 am REASON FOR STUDY: stroke S/S COMPARISON: 05/13/2017 EXAM PARAMETERS: NUMBER OF VIEWS: One view. TECHNIQUE: Single frontal radiographic view of the chest acquired. RADIATION DOSE: NA LIMITATIONS: None. FINDINGS: LUNGS AND PLEURA: No opacities, masses or pneumothorax. No pleural effusion. MEDIASTINUM AND HILAR STRUCTURES: No masses. Contour normal. HEART AND VASCULAR STRUCTURES: Heart normal in size. Normal vasculature. BONES: No acute findings. HARDWARE: None in the chest. OTHER: No other significant finding. IMPRESSION: NO ACUTE RADIOGRAPHIC FINDING IN THE CHEST. TECHNICAL DOCUMENTATION: JOB ID: [id number] [employer]- All Rights Reserved Reading location - IP/workstation name: [email or web address]
[2018-01-13] MEDS ORDERED: LORAZEPAM INJ 2 MG/1 ML VIAL IV ONE (12:08)
[2018-01-13] MEDS ORDERED: NORMAL SALINE 1000 ML 1,000 ML IV ONE (12:09)
[2018-01-13 12:16] LABS: INTERNATIONAL RATION (INR) 0.97; PROTHROMBIN TIME 13.4 SEC (11.4-15.4)
[2018-01-13 12:17] LABS: ABSOLUTE LYMPHOCYTES (AUTO) 1.9 10^3/uL (0.5-4.7); ABSOLUTE MONOCYTES (AUTO) 0.9 10^3/uL (0.1-1.4); ABSOLUTE NEUT (AUTO) 5.6 10^3/uL (1.7-8.2); BASOPHILS % (AUTO) 0.4 % (0-2); EOSINOPHILS % (AUTO) 0.1 % (0-6); HEMATOCRIT 48.2 % (37.9-51.0); HEMOGLOBIN 16.2 g/dL (13.5-17.0); LYMPHOCYTES % (AUTO) 22.8 % (13-45); MEAN CORPUSCULAR HGB CONC 33.5 g/dL (32.0-36.0); MEAN CORPUSCULAR VOLUME 99 fl (80-97); MONOCYTES % (AUTO) 10.6 % (3-13); PARTIAL THROMBOPLASTIN TIME 27.4 SEC (23.5-35.8); PLATELET COUNT 113 10^3/uL (150-450); RED CELL DISTRIBUTION WIDTH 13.6 % (11.5-14.0); SEGMENTED NEUTROPHILS % (AUTO) 66.1 % (42-78); TOTAL CELLS COUNTED % (AUTO) 100 %; WHITE BLOOD COUNT 8.5 10^3/uL (4.0-10.5)
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
--- NOTE | 2018-01-13 12:22 | RADIOLOGY REPORT (SQ) ---
EXAM DESCRIPTION: CT HEAD WITHOUT COMPLETED DATE/TIME: 01/13/2018 12:01 pm REASON FOR STUDY: stroke S/S COMPARISON: CT brain 01/09/2018, 16 18, 05/13/2017 TECHNIQUE: Axial images acquired through the brain without intravenous contrast. Images reviewed wi th bone, brain and subdural windows. Sagittal and coronal reconstructions are nondiagnostic due to m otion artifact. Images stored on PACS. All CT scanners at this facility use dose modulation, iterative reconstruction, and/or weight based d osing when appropriate to reduce radiation dose to as low as reasonably achievable (ALARA). [facility]: Dose Right [facility]: CareDose [facility]: Dose Right [facility]: Teradose 4D [facility]: [employer] RADIATION DOSE: 106 mGy. LIMITATIONS: Motion artifact throughout the study. Patient imaged twice. FINDINGS: VENTRICLES: Normal size and contour. CEREBRUM: Patient was scanned twice. On the 2nd set of images through the brain, series 5, image 2, a subcentimeter focus of increased density is present along the right anterior inferior frontal lobe. This could be a tiny hemorrhagic contusion. Volume averaging with the adjacent frontal bone is pos sible. These findings were discussed with Dr. Smith. Repeat follow-up scanning sometime over the n ext 24 hours is recommended. Remainder of the brain parenchyma demonstrates an old lacunar infarct in the right medial basal gangl ia. No mass effect or midline shift. No CT evidence of acute large territory ischemic change. CEREBELLUM: No masses. No hemorrhage. No alteration of density. No evidence for acute infarction. EXTRAAXIAL SPACES: No subdural hemorrhage. No subdural CSF density fluid collection. ORBITS AND GLOBE: No intra- or extraconal masses. Normal contour of globe without masses. CALVARIUM: Old left frontal samaria holes. PARANASAL SINUSES: No fluid or mucosal thickening. SOFT TISSUES: No mass or hematoma. OTHER: No other significant finding. IMPRESSION: No acute subdural hemorrhage. No chronic CSF density subdural effusion. Along the inferior right frontal lobe, there is questionable tiny right frontal cortical contusion ve rsus volume averaging artifact with adjacent bone. Repeat scan sometime over the next 24 hours is re commended. Findings discussed with the emergency room attending physician. EVIDENCE OF ACUTE STROKE: NO. COMMENT: Pertinent findings on the imaging study reported as a CRITICAL RESULT to ANJANA Marsh t12:01 on 01/13/2018. Category of Critical Result: Right frontal possible hemorrhagic contusion, CT stroke alert Quality ID # [id number]: Final reports with documentation of one or more dose reduction techniques (e.g., Au tomated exposure control, adjustment of the mA and/or kV according to patient size, use of iterative reconstruction technique) TECHNICAL DOCUMENTATION: JOB ID: [id number] 1987 [employer]- All Rights Reserved Reading location - IP/workstation name: [email or web address]
[2018-01-13 12:35] LABS: ALANINE AMINOTRANSFERASE 40 U/L (21-72); ALBUMIN 4.7 g/dL (3.5-5.0); ALKALINE PHOSPHATASE 156 U/L (38-126); ASPARTATE AMINO TRANSFERASE 75 U/L (17-59); BILIRUBIN,DIRECT 0.6 mg/dL (0.0-0.4); BILIRUBIN,TOTAL 1.2 mg/dL (0.2-1.3); BLOOD UREA NITROGEN 7 mg/dL (7-20); CALCIUM 9.6 mg/dL (8.4-10.2); CARBON DIOXIDE 11 mmol/L (22-30); CREATINE KINASE 179 U/L (55-170); GLUCOSE 171 mg/dL (75-110); POTASSIUM 4.2 mmol/L (3.6-5.0); TOTAL PROTEIN 8.2 g/dL (6.3-8.2)
[2018-01-13 12:36] LABS: ALCOHOL < 10 mg/dL (NONE DETECTED)
[2018-01-13 12:39] LABS: CHLORIDE 102 mmol/L (98-107)
[2018-01-13 12:40] LABS: ANION GAP 29 (5-19)
--- NOTE | 2018-01-13 12:46 | EKG REPORT ---
SEVERITY:- ABNORMAL ECG - SINUS TACHYCARDIA PROBABLE INFERIOR INFARCT, AGE INDETERMINATE : Confirmed by: Alfred Hurt MD 13-Jan-2018 12:45:45
[2018-01-13 12:51] LABS: TROPONIN I < 0.012 ng/mL
[2018-01-13 13:34] LABS: URINE AMPHETAMINES SCREEN NEGATIVE; URINE BARBITURATES SCREEN NEGATIVE; URINE BENZODIAZEPINES SCREEN NEGATIVE; URINE COCAINE SCREEN NEGATIVE; URINE MARIJUANA (THC) SCREEN NEGATIVE; URINE METHADONE SCREEN NEGATIVE; URINE PHENCYCLIDINE SCREEN NEGATIVE
[2018-01-13] MEDS ORDERED: LORAZEPAM INJ 2 MG/1 ML VIAL IV PRN (14:11)
[2018-01-13] MEDS ORDERED: FOLIC ACID 1 MG TABLET PO ONE (15:00)
[2018-01-13] MEDS ORDERED: THIAMINE HCL 100 MG TABLET PO ONE (15:00)
[2018-01-13] MEDS: NORMAL SALINE 1000 ML 1,000 ML IV PRN (17:56)
[2018-01-13] MEDS ORDERED: NICOTINE 14 MG/24 HR PATCH.TD24 TD ONE (18:30)
[2018-01-13] MEDS ORDERED: DIAZEPAM 5 MG TABLET PO PRN (20:13)
[2018-01-13] MEDS: LORAZEPAM INJ 2 MG/1 ML VIAL IV PRN (22:20)
[2018-01-14] MEDS: LORAZEPAM INJ 2 MG/1 ML VIAL IV PRN ×3 (03:11→20:27)
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
[2018-01-14] MEDS: NORMAL SALINE 1000 ML 1,000 ML IV PRN (06:55)
[2018-01-14 08:28] LABS: HEMATOCRIT 41.6 % (37.9-51.0); HEMOGLOBIN 14.4 g/dL (13.5-17.0); MEAN CORPUSCULAR HEMOGLOBIN 33.1 pg (27.0-33.4); MEAN CORPUSCULAR HGB CONC 34.6 g/dL (32.0-36.0); MEAN CORPUSCULAR VOLUME 96 fl (80-97); RED BLOOD COUNT 4.34 10^6/uL (4.35-5.55); RED CELL DISTRIBUTION WIDTH 13.2 % (11.5-14.0); WHITE BLOOD COUNT 4.6 10^3/uL (4.0-10.5)
[2018-01-14 09:08] LABS: ALANINE AMINOTRANSFERASE 39 U/L (21-72); ALBUMIN 3.4 g/dL (3.5-5.0); ALKALINE PHOSPHATASE 113 U/L (38-126); ASPARTATE AMINO TRANSFERASE 46 U/L (17-59); BILIRUBIN,DIRECT 0.5 mg/dL (0.0-0.4); BILIRUBIN,TOTAL 1.1 mg/dL (0.2-1.3); BLOOD UREA NITROGEN 6 mg/dL (7-20); CALCIUM 8.8 mg/dL (8.4-10.2); CHLORIDE 101 mmol/L (98-107); GLUCOSE 119 mg/dL (75-110); PHOSPHORUS 3.4 mg/dL (2.5-4.5); POTASSIUM 3.6 mmol/L (3.6-5.0); SODIUM 134.8 mmol/L (137-145); TOTAL PROTEIN 6.3 g/dL (6.3-8.2)
[2018-01-14 09:14] LABS: PLATELET COUNT 89 10^3/uL (150-450)
[2018-01-14 09:18] LABS: ANION GAP 9 (5-19)
[2018-01-14 09:20] LABS: CARBON DIOXIDE 25 mmol/L (22-30)
[2018-01-14] MEDS: FOLIC ACID 1 MG TABLET PO SCH (09:59)
[2018-01-14] MEDS: THIAMINE HCL 100 MG TABLET PO SCH (09:59)
[2018-01-14] MEDS ORDERED: ENOXAPARIN SODIUM INJ 30 MG/0.3 ML DISP.SYRIN SUBCUT SCH (10:00)
[2018-01-14] MEDS: NICOTINE 14 MG/24 HR PATCH.TD24 TD SCH (10:00)
[2018-01-14] MEDS ORDERED: LORAZEPAM INJ 2 MG/1 ML VIAL IV PRN (11:33)
[2018-01-14] MEDS: DIAZEPAM 5 MG TABLET PO SCH ×2 (11:39→19:36)
[2018-01-14] MEDS ORDERED: HALOPERIDOL LACTATE INJ 5 MG/1 ML VIAL IV ONE (12:30)
--- NOTE | 2018-01-14 14:59 | RADIOLOGY REPORT (SQ) ---
EXAM DESCRIPTION: CT HEAD WITHOUT COMPLETED DATE/TIME: 01/14/2018 2:32 pm REASON FOR STUDY: eval for small hemoragic bleed; may scan twice prn COMPARISON: CT brain 04/03/2017, 05/13/2017, 12/22/2017, 01/09/2018, 01/13/2018 TECHNIQUE: Axial images acquired through the brain without intravenous contrast. Images reviewed wi th bone, brain and subdural windows. Additional sagittal and coronal reconstructions were generated. Images stored on PACS. All CT scanners at this facility use dose modulation, iterative reconstruction, and/or weight based d osing when appropriate to reduce radiation dose to as low as reasonably achievable (ALARA). [facility]: Dose Right [facility]: CareDose [facility]: Dose Right [facility]: Teradose 4D [facility]: [employer] RADIATION DOSE: CT Rad equipment meets quality standard of care and radiation dose reduction techniq ues were employed. CTDIvol: 48.5 mGy. DLP: 928 mGy-cm. mGy. LIMITATIONS: None. FINDINGS: VENTRICLES: Normal size and contour. CEREBRUM: No acute brain parenchymal hemorrhagic contusion. No CT evidence of acute large territory ischemic change. Old lacunar infarct right basal ganglia very Normal mendez/white matter differentiati on. No areas of low density in the white matter. CEREBELLUM: No masses. No hemorrhage. No alteration of density. No evidence for acute infarction. EXTRAAXIAL SPACES: There is a thin rim left tentorial subdural acute hemorrhage measuring less than 3 mm in thickness, best shown on axial images 14-16, and coronal reconstruction images 43 through 48. ORBITS AND GLOBE: No intra- or extraconal masses. Normal contour of globe without masses. CALVARIUM: No fracture. PARANASAL SINUSES: No fluid or mucosal thickening. SOFT TISSUES: No mass or hematoma. OTHER: No other significant finding. IMPRESSION: Thin rim left tentorial acute subdural hemorrhage measuring less than 3 mm in thickness. No right inferior frontal brain parenchymal contusion identified. EVIDENCE OF ACUTE STROKE: NO. COMMENT: Pertinent findings on the imaging study reported as a CRITICAL RESULT to OC VASQUES at14:50 on 01/14/2018. Category of Critical Result: Thin rim acute left tentorial subdural hemorrhage Quality ID # [id number]: Final reports with documentation of one or more dose reduction techniques (e.g., Au tomated exposure control, adjustment of the mA and/or kV according to patient size, use of iterative reconstruction technique) TECHNICAL DOCUMENTATION: JOB ID: [id number] [employer]- All Rights Reserved Reading location - IP/workstation name: [email or web address]
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
[2018-01-14] MEDS: ACETAMINOPHEN 325 MG TABLET PO PRN (21:06)
[2018-01-15] MEDS: DIAZEPAM 5 MG TABLET PO SCH ×5 (00:53→23:56)
[2018-01-15] MEDS: HALOPERIDOL LACTATE INJ 5 MG/1 ML VIAL IV PRN ×3 (02:32→21:08)
[2018-01-15] MEDS: NORMAL SALINE 1000 ML 1,000 ML IV PRN (03:03)
[2018-01-15] MEDS: LORAZEPAM INJ 2 MG/1 ML VIAL IV PRN ×4 (05:22→22:40)
[2018-01-15 06:53] LABS: ANION GAP 11 (5-19); BLOOD UREA NITROGEN 7 mg/dL (7-20); CARBON DIOXIDE 23 mmol/L (22-30); CHLORIDE 106 mmol/L (98-107); GLUCOSE 101 mg/dL (75-110); POTASSIUM 3.8 mmol/L (3.6-5.0); SODIUM 140.3 mmol/L (137-145)
[2018-01-15] MEDS: FOLIC ACID 1 MG TABLET PO SCH (10:20)
[2018-01-15] MEDS: THIAMINE HCL 100 MG TABLET PO SCH (10:20)
[2018-01-15] MEDS: NICOTINE 14 MG/24 HR PATCH.TD24 TD SCH (10:21)
[2018-01-15] MEDS ORDERED: HYDRALAZINE HCL INJ/PF 20 MG/1 ML SDV IV PRN (16:41)
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
[2018-01-16] MEDS: DIAZEPAM 5 MG TABLET PO SCH ×4 (05:13→23:55)
[2018-01-16] MEDS: ACETAMINOPHEN 325 MG TABLET PO PRN (05:59)
[2018-01-16 06:23] LABS: HEMATOCRIT 42.3 % (37.9-51.0); HEMOGLOBIN 14.5 g/dL (13.5-17.0); MEAN CORPUSCULAR HGB CONC 34.3 g/dL (32.0-36.0); MEAN CORPUSCULAR VOLUME 96 fl (80-97); PLATELET COUNT 100 10^3/uL (150-450); RED CELL DISTRIBUTION WIDTH 13.3 % (11.5-14.0); WHITE BLOOD COUNT 4.1 10^3/uL (4.0-10.5)
[2018-01-16 06:45] LABS: ALANINE AMINOTRANSFERASE 27 U/L (21-72); ALBUMIN 3.6 g/dL (3.5-5.0); ALKALINE PHOSPHATASE 108 U/L (38-126); ANION GAP 9 (5-19); ASPARTATE AMINO TRANSFERASE 32 U/L (17-59); BILIRUBIN,DIRECT 0.3 mg/dL (0.0-0.4); BILIRUBIN,TOTAL 0.8 mg/dL (0.2-1.3); BLOOD UREA NITROGEN 8 mg/dL (7-20); CALCIUM 9.5 mg/dL (8.4-10.2); CARBON DIOXIDE 22 mmol/L (22-30); CHLORIDE 107 mmol/L (98-107); GLUCOSE 131 mg/dL (75-110); POTASSIUM 3.8 mmol/L (3.6-5.0); SODIUM 138.4 mmol/L (137-145); TOTAL PROTEIN 6.6 g/dL (6.3-8.2)
[2018-01-16] MEDS: FOLIC ACID 1 MG TABLET PO SCH (10:44)
[2018-01-16] MEDS: LISINOPRIL 5 MG TABLET PO SCH (10:44)
[2018-01-16] MEDS: HALOPERIDOL LACTATE INJ 5 MG/1 ML VIAL IV PRN ×2 (10:45→20:03)
[2018-01-16] MEDS: THIAMINE HCL 100 MG TABLET PO SCH (10:45)
[2018-01-16] MEDS: LORAZEPAM INJ 2 MG/1 ML VIAL IV PRN ×2 (10:45→20:03)
[2018-01-16] MEDS: NICOTINE 14 MG/24 HR PATCH.TD24 TD SCH (10:45)
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
[2018-01-17] MEDS: DIAZEPAM 5 MG TABLET PO SCH ×2 (06:12→15:14)
[2018-01-17] MEDS: LORAZEPAM INJ 2 MG/1 ML VIAL IV PRN (06:12)
[2018-01-17] MEDS: HALOPERIDOL LACTATE INJ 5 MG/1 ML VIAL IV PRN (06:12)
[2018-01-17] MEDS: FOLIC ACID 1 MG TABLET PO SCH (10:49)
[2018-01-17] MEDS: THIAMINE HCL 100 MG TABLET PO SCH (10:49)
[2018-01-17] MEDS: NICOTINE 14 MG/24 HR PATCH.TD24 TD SCH (10:50)
[2018-01-17] MEDS: LISINOPRIL 5 MG TABLET PO SCH (10:50)
[2018-01-17] MEDS: ACETAMINOPHEN 325 MG TABLET PO PRN (15:21)
[2018-01-17] MEDS ORDERED: BENZOCAINE/MENTHOL SORE THROAT LOZENGE BUCCAL PRN (15:39)
[2018-01-17 18:18] VITALS: BP 125/67
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
== END 2018-01-17 18:30 | disposition home or self-care (01) | DRG 86 ==
LOC: ER 11:48 → EH 14:29 → 3S 18:03 → OBSVTOIN 01-14 18:20
PROVIDERS: ADMIT Internal Medicine; ATTEND Internal Medicine
DX: S06.5X0A Traumatic subdural hemorrhage without loss of consciousness, initial encounter (principal); F10.231 Alcohol dependence with withdrawal delirium; F32.9 Major depressive disorder, single episode, unspecified; Y90.0 Blood alcohol level of less than 20 mg/100 ml; B88.8 Other specified infestations; F17.210 Nicotine dependence, cigarettes, uncomplicated; S05.12XA Contusion of eyeball and orbital tissues, left eye, initial encounter; S40.812A Abrasion of left upper arm, initial encounter; S40.811A Abrasion of right upper arm, initial encounter; S80.812A Abrasion, left lower leg, initial encounter; S80.811A Abrasion, right lower leg, initial encounter; Y04.0XXA Assault by unarmed brawl or fight, initial encounter; W19.XXXA Unspecified fall, initial encounter; Z91.81 History of falling; Z86.73 Personal history of transient ischemic attack (TIA), and cerebral infarction without residual deficits; S00.03XA Contusion of scalp, initial encounter; S20.211A Contusion of right front wall of thorax, initial encounter; S20.221A Contusion of right back wall of thorax, initial encounter; S70.00XA Contusion of unspecified hip, initial encounter; Z78.1 Physical restraint status
CPT/HCPCS: 36415; 70450; 71045; 80048; 80053; 80076; 80307; 82550; 82553; 83735; 84100; 84484; 85025; 85027; 85610; 85730; 93005; 93010; 96361; 96374; 99285; 99406; G0378; J1630; J2060; J7030

== ENCOUNTER 2018-02-25 20:09 | Emergency (ER) | payer SELFPAY ==
[2018-02-25] MEDS ORDERED: ACETAMINOPHEN 325 MG TABLET PO ONE (22:02)
--- NOTE | 2018-02-25 22:04 | ER Document Report ---
ED Medical Screen (RME) - General Chief Complaint: Facial Injury Stated Complaint: FALL Time Seen by Provider: 02/25/18 22:02 Notes: 62-year-old male, chief complaint of fall, he states that he tripped, skinned his knees, hit his face, he states he also hurts in his lower back. He was bleeding from his nose on the left side. He admits to a couple drinks of alcohol tonight. He denies loss of consciousness, headache, vomiting, focal numbness or weakness, incontinence. He states he only takes Advil as needed at home, no other meds, no other medical history. He states his tetanus is up-to- date within 5 years. TRAVEL OUTSIDE OF THE [place] IN LAST 30 DAYS: No - Related Data Allergies/Adverse Reactions: No Known Allergies Allergy (Verified 01/09/18 17:37) Past Medical History Neurological Medical History: Reports: Hx Cerebrovascular Accident. Denies: Hx Seizures Endocrine Medical History: Denies: Hx Diabetes Mellitus Type 1 Renal/ Medical History: Denies: Hx Peritoneal Dialysis Psychiatric Medical History: Reports: Hx Depression - Does not take medication. Ongoing - Immunizations Hx Diphtheria, Pertussis, Tetanus Vaccination: - pt unsure History of Influenza Vaccine for 04/2017 - 09/2017 Season: Unknown Physical Exam - Vital signs Vitals: Temp Pulse Resp BP Pulse Ox 98.8 F 102 H 16 122/77 97 02/25/18 20:34 02/25/18 20:34 02/25/18 20:34 02/25/18 20:34 02/25/18 20:34 - Back Back: Tender - Complains of tenderness with palpation of the lower lumbar area generally, no signs of trauma, unremarkable otherwise - Neurological Orientation: AAOx4 Tat[place]na Coma Scale Eye Opening: Spontaneous [place] Coma Scale Verbal: Oriented [place] Coma Scale Motor: Obeys Commands Tatianna Coma Scale Total: 15 Speech: Normal Cranial nerves: Normal Cerebellar coordination: Normal Motor strength normal: LUE, RUE, LLE, RLE Course - Vital Signs Vital signs: Temp Pulse Resp BP Pulse Ox 98.8 F 102 H 16 122/77 97 02/25/18 20:34 02/25/18 20:34 02/25/18 20:34 02/25/18 20:34 02/25/18 20:34
--- NOTE | 2018-02-25 22:47 | RADIOLOGY REPORT (SQ) ---
EXAM DESCRIPTION: CT HEAD WITHOUT IV CONTRAST COMPLETED DATE/TME: 02/25/2018 22:02 CLINICAL HISTORY: 62 years Male, fall, head injury, ETOH COMPARISON: 7.3.18 TECHNIQUE: No contrast. Coronal and sagittal reformat. This exam was performed according to our departmental dose-optimization program, which includes automated exposure control, adjustment of the mA and/or kV according to patient size and/or use of iterative reconstruction technique. FINDINGS: No hemorrhage. No mass, mass effect, or midline shift. 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 Left frontal and left parietal cranial borehole. Atherosclerosis. Brain and extra-axial structures appear otherwise intact. IMPRESSION: No acute findings.
--- NOTE | 2018-02-25 22:50 | RADIOLOGY REPORT (SQ) ---
EXAM DESCRIPTION: CT CERVICAL SPINE WITHOUT COMPLETED DATE/TIME: 02/25/2018 10:20 pm REASON FOR STUDY: fall, head injury, ETOH COMPARISON: 01/09/2018 TECHNIQUE: Axial images acquired through the cervical spine without intravenous contrast. Images re viewed with lung, soft tissue and bone windows. Reconstructed coronal and sagittal MPR images review ed. Images stored on PACS. All CT scanners at this facility use dose modulation, iterative reconstruction, and/or weight based d osing when appropriate to reduce radiation dose to as low as reasonably achievable (ALARA). [facility]: Dose Right [facility]: CareDose [facility]: Dose Right [facility]: Teradose 4D [facility]: [employer] RADIATION DOSE: CT Rad equipment meets quality standard of care and radiation dose reduction techniq ues were employed. CTDIvol: 22.0 mGy. DLP: 433 mGy-cm. mGy. LIMITATIONS: None. FINDINGS: ALIGNMENT: Anatomic. MINERALIZATION: Normal. VERTEBRAL BODIES: No fractures or dislocation. DISCS: No significant disc disease. FACETS, LATERAL MASSES, POSTERIOR ELEMENTS: No fractures. No dislocation. No acute findings. HARDWARE: None in the spine. VISUALIZED RIBS: No fractures. LUNG APICES AND SOFT TISSUES: No significant or acute findings. OTHER: No other significant finding. IMPRESSION: NO ACUTE OR SIGNIFICANT FINDINGS IN THE CERVICAL SPINE. TECHNICAL DOCUMENTATION: JOB ID: [id number] Quality ID # [id number]: Final reports with documentation of one or more dose reduction techniques (e.g., Au tomated exposure control, adjustment of the mA and/or kV according to patient size, use of iterative reconstruction technique) 2010 [employer]- All Rights Reserved Reading location - IP/workstation name: [email or web address]
--- NOTE | 2018-02-25 22:52 | RADIOLOGY REPORT (SQ) ---
EXAM DESCRIPTION: KNEE BILATERAL 1-2 VIEWS COMPLETED DATE/TIME: 02/25/2018 10:27 pm REASON FOR STUDY: fall, pain COMPARISON: None. NUMBER OF VIEWS: Two views. TECHNIQUE: AP and lateral standing bilateral knees. LIMITATIONS: None. FINDINGS: MINERALIZATION: Normal. RIGHT KNEE BONES: No acute fracture. No worrisome bone lesions. MEDIAL COMPARTMENT: No significant osteophytes. No joint space narrowing. No chondrocalcinosis. LATERAL COMPARTMENT: No significant osteophytes. No joint space narrowing. No chondrocalcinosis. LEFT KNEE BONES: No acute fracture. No worrisome bone lesions. MEDIAL COMPARTMENT: No significant osteophytes. No joint space narrowing. No chondrocalcinosis. LATERAL COMPARTMENT: No significant osteophytes. No joint space narrowing. No chondrocalcinosis. IMPRESSION: NEGATIVE STUDY OF THE STANDING LEFT AND RIGHT KNEES. NO SIGNIFICANT JOINT SPACE NARROWIN G OR OTHER SIGNS OF ARTHRITIS. TECHNICAL DOCUMENTATION: JOB ID: [id number] [employer]- All Rights Reserved Reading location - IP/workstation name: [email or web address]
--- NOTE | 2018-02-25 22:53 | RADIOLOGY REPORT (SQ) ---
EXAM DESCRIPTION: L SPINE WHOLE COMPLETED DATE/TIME: 02/25/2018 10:27 pm REASON FOR STUDY: fall, pain COMPARISON: None. NUMBER OF VIEWS: Five views including obliques. TECHNIQUE: AP, lateral, oblique, and sacral radiographic images acquired of the lumbar spine. LIMITATIONS: None. FINDINGS: MINERALIZATION: Normal. SEGMENTATION: Normal. No transitional anatomy. ALIGNMENT: Normal. VERTEBRAE: Maintained height. No fracture or worrisome bone lesion. DISCS: Disc spaces are narrowed at L4-5 and L5-S1. POSTERIOR ELEMENTS: Pedicles and facets are intact. No pars defect or posterior arch defects. HARDWARE: None in the spine. PARASPINAL SOFT TISSUES: Normal. PELVIS: Intact as visualized. No fractures or worrisome bone lesions. SI joints intact. OTHER: No other significant finding. IMPRESSION: Degenerative disc disease. No acute findings. TECHNICAL DOCUMENTATION: JOB ID: [id number] [employer]- All Rights Reserved Reading location - IP/workstation name: [email or web address]
--- NOTE | 2018-02-25 23:36 | ER Document Report ---
ED General - General Chief Complaint: Facial Injury Stated Complaint: FALL Time Seen by Provider: 02/25/18 22:02 Notes: Patient is a 62-year-old male who presents with complaint of falling on the concrete and hit his head. He complains of mild headache. He also says that he has some pain over the bridge of his nose. He did fall forward and landed on his knees appears to be able stand and walk without difficulty but has some scrapes and bruises across his knees. Patient has just mild rib pain but says no difficulty breathing or. No difficulty taking deep breath. No abdominal pain. No hemoptysis. He does not take any blood thinning medications. Patient does admit to having a few drinks of alcohol today. He says he drinks probably once a week. TRAVEL OUTSIDE OF THE [place] IN LAST 30 DAYS: No - Related Data Allergies/Adverse Reactions: No Known Allergies Allergy (Verified 01/09/18 17:37) Past Medical History - Social History Smoking Status: Current Every Day Smoker Frequency of alcohol use: None Drug Abuse: None Family History: Reviewed & Not Pertinent Neurological Medical History: Reports: Hx Cerebrovascular Accident. Denies: Hx Seizures Endocrine Medical History: Denies: Hx Diabetes Mellitus Type 1 Renal/ Medical History: Denies: Hx Peritoneal Dialysis Psychiatric Medical History: Reports: Hx Depression - Does not take medication. Ongoing - Immunizations Hx Diphtheria, Pertussis, Tetanus Vaccination: - pt unsure Review of Systems - Review of Systems Notes: My Normal Review Basic REVIEW OF SYSTEMS: CONSTITUTIONAL : Denies fever, chills, or sweats. Denies recent illness. EENT: Denies eye, ear, throat, or mouth pain or symptoms. Denies nasal or sinus congestion. CARDIOVASCULAR: Denies chest pain. RESPIRATORY: Denies cough, cold, or chest congestion. Denies shortness of breath, difficulty breathing, or wheezing. GASTROINTESTINAL: Denies abdominal pain. Denies nausea, vomiting, or diarrhea. Denies constipation. Last BM: MUSCULOSKELETAL: bilateral knee pain. Low back pain SKIN: Denies rash or skin lesions. NEUROLOGICAL: Denies altered mental status or loss of consciousness. Mild headache. Denies weakness or paralysis or loss of use of either side. Denies problems with gait or speech. Denies sensory or motor loss. ALL OTHER SYSTEMS REVIEWED AND NEGATIVE. Physical Exam - Vital signs Vitals: Temp Pulse Resp BP Pulse Ox 98.8 F 102 H 16 122/77 97 02/25/18 20:34 02/25/18 20:34 02/25/18 20:34 02/25/18 20:34 02/25/18 20:34 - Notes Notes: General Appearance: Well nourished, alert, cooperative, no acute distress, mild obvious discomfort. Vitals: reviewed, See vital signs table. Head: no swelling or tenderness to the head Eyes: PERRL, EOMI, Conjuctiva clear Mouth: No decreasd moisture Throat: No tonsillar inflammation, No airway obstruction, No lymphadenopathy Neck: Supple, mild midline cervical neck tenderness palpation, No thyromegaly Lungs: No wheezing, No rales, No rhonci, No accessory muscle use, good air exchange bilaterally. Heart: Normal rate, Regular rythm, No murmur, no rub Wall: No swelling or bruising to the chest wall. Very mild pain palpation over the lateral ribs. Abdomen: Normal BS, soft, No rigidity, No abdominal tenderness, No guarding, no rebound, no abdominal masses, no organomegaly Back: Some pain to palpation there is mostly paraspinal of the lumbar spine. This most around the level of L2-L3. No obvious step-offs or deformities of the back. Thoracic spine is nontender. Extremities: strength 5/5 in all extremities, good pulses in all extremities, patient has multiple abrasions to the his knees. He does not have much pain palpation of his knees. Is able stand and walk without difficulty. Skin: warm, dry, appropriate color, no rash Neuro: speech clear, oriented x 3, normal affect, responds appropriately to questions. Cranial nerves II through XII are intact. Distal sensation intact. Patient is able stand and walk around the room without any difficulty. He has no gait disturbance. No current signs of alcohol intoxication on exam. Course - Re-evaluation Re-evalutation: 02/26/18 04:09 Patient looks well on exam appears able stand and walk without difficulty. His scans and x-rays are negative. He has no focal weakness or numbness into his extremities. I feel he is safe to be discharged home. Strongly encourage him return to ER immediately if he has severe worsening pain, vomiting, or worsening headache. Patient agrees with plan will be discharged home. Dictation of this chart was performed using voice recognition software; therefore, there may be some unintended grammatical errors. - Vital Signs Vital signs: Temp Pulse Resp BP Pulse Ox 97.8 F 72 17 117/73 97 02/26/18 00:07 02/26/18 00:07 02/26/18 00:07 02/26/18 00:07 02/26/18 00:07 Discharge - Discharge Clinical Impression: Headache Qualifiers: Headache type: post-traumatic Headache chronicity pattern: unspecified pattern Intractability: not intractable Qualified Code(s): G44.309 - Post-traumatic headache, unspecified, not intractable Knee pain, bilateral Qualifiers: Chronicity: acute Qualified Code(s): M25.561 - Pain in right knee Contusion, nose Qualifiers: Encounter type: initial encounter Qualified Code(s): S00.33XA - Contusion of nose, initial encounter Low back pain Qualifiers: Chronicity: acute Back pain laterality: bilateral Sciatica presence: without sciatica Qualified Code(s): M54.5 - Low back pain Condition: Good Disposition: HOME, SELF-CARE Additional Instructions: Please take Tylenol for pain. please follow up with a doctor in 2-3 days for reevaluation. Please return to the ER if you have worsening headache, vomiting, difficulty breathing, abdominal pain, or feel unwell. Please cut back on your alcohol intake. Forms: Return to Work
[2018-02-26 00:17] VITALS: BP 117/73
== END 2018-02-26 00:44 | disposition home or self-care (01) ==
LOC: ER 20:09
DX: S00.33XA Contusion of nose, initial encounter (principal); S80.00XA Contusion of unspecified knee, initial encounter; M25.561 Pain in right knee; M25.562 Pain in left knee; M54.5 Low back pain; R07.81 Pleurodynia; W19.XXXA Unspecified fall, initial encounter; G44.309 Post-traumatic headache, unspecified, not intractable; F17.200 Nicotine dependence, unspecified, uncomplicated
CPT/HCPCS: 70450; 72110; 72125; 99284

== ENCOUNTER 2018-02-26 21:05 | Emergency (ER) | payer SELFPAY ==
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
--- NOTE | 2018-02-27 01:17 | RADIOLOGY REPORT (SQ) ---
EXAM DESCRIPTION: XR WRIST 3 OR MORE VIEWS COMPLETED DATE/TME: 02/27/2018 00:25 CLINICAL HISTORY: 62 years, Male, injury, pain COMPARISON: None. NUMBER OF VIEWS: Four LIMITATIONS: None. FINDINGS: Mild osteoarthritis involves the first carpometacarpal and scaphotrapezial joints. IMPRESSION: No acute findings.
[2018-02-27 02:00] VITALS: BP 113/65
== END 2018-02-27 02:00 | disposition home or self-care (01) ==
LOC: ER 21:05
DX: S01.81XA Laceration without foreign body of other part of head, initial encounter (principal); S00.33XA Contusion of nose, initial encounter; S60.811A Abrasion of right wrist, initial encounter; S80.02XA Contusion of left knee, initial encounter; S80.01XA Contusion of right knee, initial encounter; F10.920 Alcohol use, unspecified with intoxication, uncomplicated; R51 Headache; M25.531 Pain in right wrist; W19.XXXA Unspecified fall, initial encounter; F17.200 Nicotine dependence, unspecified, uncomplicated
CPT/HCPCS: 70450; 72125; 99284

== ENCOUNTER 2018-02-27 16:38 | Emergency (ER) | payer SELFPAY ==
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
[2018-02-27 17:20] LABS: ABSOLUTE LYMPHOCYTES (AUTO) 1.3 10^3/uL (0.5-4.7); ABSOLUTE MONOCYTES (AUTO) 0.9 10^3/uL (0.1-1.4); ABSOLUTE NEUT (AUTO) 4.6 10^3/uL (1.7-8.2); BASOPHILS % (AUTO) 0.4 % (0-2); EOSINOPHILS % (AUTO) 0.4 % (0-6); HEMATOCRIT 43.5 % (37.9-51.0); HEMOGLOBIN 14.9 g/dL (13.5-17.0); LYMPHOCYTES % (AUTO) 18.4 % (13-45); MEAN CORPUSCULAR HEMOGLOBIN 32.2 pg (27.0-33.4); MEAN CORPUSCULAR HGB CONC 34.3 g/dL (32.0-36.0); MEAN CORPUSCULAR VOLUME 94 fl (80-97); MONOCYTES % (AUTO) 13.8 % (3-13); PLATELET COUNT 235 10^3/uL (150-450); RED BLOOD COUNT 4.63 10^6/uL (4.35-5.55); RED CELL DISTRIBUTION WIDTH 13.6 % (11.5-14.0); TOTAL CELLS COUNTED % (AUTO) 100 %; WHITE BLOOD COUNT 6.8 10^3/uL (4.0-10.5)
[2018-02-27 17:21] LABS: INTERNATIONAL RATION (INR) 0.99; PROTHROMBIN TIME 13.6 SEC (11.4-15.4)
[2018-02-27 17:22] LABS: PARTIAL THROMBOPLASTIN TIME 24.9 SEC (23.5-35.8)
--- NOTE | 2018-02-27 17:37 | RADIOLOGY REPORT (SQ) ---
EXAM DESCRIPTION: CT HEAD WITHOUT COMPLETED DATE/TIME: 02/27/2018 5:19 pm REASON FOR STUDY: fall, altered mental status, confusion COMPARISON: 02/27/2018 TECHNIQUE: Axial images acquired through the brain without intravenous contrast. Images reviewed wi th bone, brain and subdural windows. Additional sagittal and coronal reconstructions were generated. Images stored on PACS. All CT scanners at this facility use dose modulation, iterative reconstruction, and/or weight based d osing when appropriate to reduce radiation dose to as low as reasonably achievable (ALARA). [facility]: Dose Right [facility]: CareDose [facility]: Dose Right [facility]: Teradose 4D [facility]: Smart [employer] RADIATION DOSE: CT Rad equipment meets quality standard of care and radiation dose reduction techniq ues were employed. CTDIvol: 53.2 mGy. DLP: 991 mGy-cm. mGy. LIMITATIONS: None. FINDINGS: VENTRICLES: Normal size and contour. CEREBRUM: No masses. No hemorrhage. No midline shift. No evidence for acute infarction. There is a small old lacunar infarct in the right basal ganglia. Normal mendez/white matter differentiation. No areas of low density in the white matter. CEREBELLUM: No masses. No hemorrhage. No alteration of density. No evidence for acute infarction. EXTRAAXIAL SPACES: No fluid collections. No masses. ORBITS AND GLOBE: No intra- or extraconal masses. Normal contour of globe without masses. CALVARIUM: Krish holes are present on the left. PARANASAL SINUSES: No fluid or mucosal thickening. SOFT TISSUES: No mass or hematoma. OTHER: No other significant finding. IMPRESSION: No acute intracranial imaging findings. EVIDENCE OF ACUTE STROKE: NO. COMMENT: Quality ID # [id number]: Final reports with documentation of one or more dose reduction techniques (e.g., Automated exposure control, adjustment of the mA and/or kV according to patient size, use of iterative reconstruction technique) TECHNICAL DOCUMENTATION: JOB ID: [id number] [employer]- All Rights Reserved Reading location - IP/workstation name: [email or web address]
[2018-02-27 17:39] LABS: ALANINE AMINOTRANSFERASE 19 U/L (21-72); ALBUMIN 3.9 g/dL (3.5-5.0); ALCOHOL 195 mg/dL (NONE DETECTED); ALKALINE PHOSPHATASE 109 U/L (38-126); ANION GAP 19 (5-19); ASPARTATE AMINO TRANSFERASE 35 U/L (17-59); BILIRUBIN,DIRECT 0.4 mg/dL (0.0-0.4); BILIRUBIN,TOTAL 0.5 mg/dL (0.2-1.3); BLOOD UREA NITROGEN 7 mg/dL (7-20); CALCIUM 8.9 mg/dL (8.4-10.2); CARBON DIOXIDE 16 mmol/L (22-30); CHLORIDE 105 mmol/L (98-107); CREATINE KINASE 221 U/L (55-170); GLUCOSE 119 mg/dL (75-110); SODIUM 140.4 mmol/L (137-145)
--- NOTE | 2018-02-27 17:41 | RADIOLOGY REPORT (SQ) ---
EXAM DESCRIPTION: CHEST SINGLE VIEW COMPLETED DATE/TIME: 02/27/2018 5:33 pm REASON FOR STUDY: fall, altered mental status, confusion COMPARISON: 01/13/2018 EXAM PARAMETERS: NUMBER OF VIEWS: One view. TECHNIQUE: Single frontal radiographic view of the chest acquired. RADIATION DOSE: NA LIMITATIONS: None. FINDINGS: LUNGS AND PLEURA: No opacities, masses or pneumothorax. No pleural effusion. MEDIASTINUM AND HILAR STRUCTURES: No masses. Contour normal. HEART AND VASCULAR STRUCTURES: Heart normal in size. Normal vasculature. BONES: No acute findings. HARDWARE: None in the chest. OTHER: No other significant finding. IMPRESSION: NO ACUTE RADIOGRAPHIC FINDING IN THE CHEST. TECHNICAL DOCUMENTATION: JOB ID: [id number] [employer]- All Rights Reserved Reading location - IP/workstation name: [email or web address]
[2018-02-27 17:46] LABS: CREATINE KINASE MB 2.61 ng/mL (<4.55); TROPONIN I < 0.012 ng/mL
[2018-02-27 18:37] LABS: APPEARANCE,URINE CLEAR; BILIRUBIN,URINE NEGATIVE (NEGATIVE); COLOR,URINE STRAW; GLUCOSE, URINE NEGATIVE (NEGATIVE); KETONES,URINE NEGATIVE (NEGATIVE); LEUKOCYTE ESTERASE,URINE NEGATIVE (NEGATIVE); NITRITE,URINE NEGATIVE (NEGATIVE); PROTEIN,URINE NEGATIVE (NEGATIVE); URINE SPECIFIC GRAVITY 1.002; UROBILINOGEN,URINE NEGATIVE mg/dL (<2.0)
[2018-02-27 18:52] LABS: URINE AMPHETAMINES SCREEN NEGATIVE; URINE BARBITURATES SCREEN NEGATIVE; URINE BENZODIAZEPINES SCREEN NEGATIVE; URINE COCAINE SCREEN NEGATIVE; URINE MARIJUANA (THC) SCREEN NEGATIVE; URINE METHADONE SCREEN NEGATIVE; URINE PHENCYCLIDINE SCREEN NEGATIVE
--- NOTE | 2018-02-27 21:17 | EKG REPORT ---
SEVERITY:- BORDERLINE ECG - SINUS RHYTHM BORDERLINE T WAVE ABNORMALITIES : Confirmed by: Alfred Hurt MD 27-Feb-2018 21:17:16
[2018-02-27] MEDS ORDERED: NORMAL SALINE 1000 ML 1,000 ML IV ONE (21:50)
[2018-02-27 23:12] VITALS: BP 144/78
== END 2018-02-27 23:14 | disposition home or self-care (01) ==
LOC: ER 16:38
DX: S40.811A Abrasion of right upper arm, initial encounter (principal); S00.31XA Abrasion of nose, initial encounter; S00.81XA Abrasion of other part of head, initial encounter; S01.511A Laceration without foreign body of lip, initial encounter; X58.XXXA Exposure to other specified factors, initial encounter; F17.210 Nicotine dependence, cigarettes, uncomplicated; F10.10 Alcohol abuse, uncomplicated; Y90.6 Blood alcohol level of 120-199 mg/100 ml; Z91.81 History of falling; Z59.0 Homelessness
CPT/HCPCS: 93005; 99285; 96360; 36415; 82553; 80307 ×2; 82550; 85025; 85610; 85730; 80053; 81001; 84484; 71045; 70450; 93010; J7030

== ENCOUNTER 2018-03-14 19:59 | Emergency (ER) | payer SELFPAY ==
--- NOTE | 2018-03-14 21:35 | ER Document Report ---
ED Medical Screen (RME) - General Chief Complaint: Groin Pain Stated Complaint: GROIN PAIN Time Seen by Provider: 03/14/18 21:30 Mode of Arrival: Medic Information source: Patient Notes: 62-year-old smoker male called the ambulance when he was in front of [facility] after walking 3-4 miles today which caused his left inguinal hernia to bulge more than usual.. He has a history of left inguinal hernia that is unrepaired. Recently he has been homeless. He is also complaining of bilateral feet pain from all the walking that he did today. No chest pain or shortness of breath. No penis or testicular pain or swelling. No constipation or diarrhea. No fever or chills. Pt needs physical exam. TRAVEL OUTSIDE OF THE [place] IN LAST 30 DAYS: No - Related Data Allergies/Adverse Reactions: No Known Allergies Allergy (Verified 01/09/18 17:37) Past Medical History Neurological Medical History: Reports: Hx Cerebrovascular Accident. Denies: Hx Seizures Endocrine Medical History: Denies: Hx Diabetes Mellitus Type 1 Renal/ Medical History: Denies: Hx Peritoneal Dialysis Psychiatric Medical History: Reports: Hx Depression - Does not take medication. Ongoing - Immunizations Hx Diphtheria, Pertussis, Tetanus Vaccination: Yes History of Influenza Vaccine for 04/2017 - 09/2017 Season: Unknown Physical Exam - Vital signs Vitals: Temp Pulse Resp BP Pulse Ox 99.2 F 105 H 20 136/85 H 98 03/14/18 20:14 03/14/18 20:14 03/14/18 20:14 03/14/18 20:14 03/14/18 20:14 Course - Vital Signs Vital signs: Temp Pulse Resp BP Pulse Ox 99.2 F 105 H 20 136/85 H 98 03/14/18 20:14 03/14/18 20:14 03/14/18 20:14 03/14/18 20:14 03/14/18 20:14
--- NOTE | 2018-03-14 22:00 | ER Document Report ---
ED General - General Chief Complaint: Groin Pain Stated Complaint: GROIN PAIN Time Seen by Provider: 03/14/18 21:30 Mode of Arrival: Medic Notes: Patient is a 62-year-old male who presents with several hours of swelling and pain to his left inguinal region. The patient reports a standing history of a left inguinal hernia that he has been told may require surgical repair in the past but has never followed through on this correction. He states that initially the area was not painful when he woke up this morning but as he continued to walk throughout the day and complete his normal activities there has become increasingly painful and more swollen. He describes it as a dull, throbbing, constant pain. He states it is worsened by touching the area or standing. Nothing improves the pain. He states that hernia has never been this painful in the past. He has not seen his general doctor regarding today's concerns. He denies any vomiting, fever or constitutional symptoms. TRAVEL OUTSIDE OF THE [place] IN LAST 30 DAYS: No - Related Data Allergies/Adverse Reactions: No Known Allergies Allergy (Verified 01/09/18 17:37) Past Medical History - General Information source: Patient - Social History Smoking Status: Current Every Day Smoker Frequency of alcohol use: Social Drug Abuse: None Lives with: Family Family History: Reviewed & Not Pertinent Patient has suicidal ideation: No Patient has homicidal ideation: No Neurological Medical History: Reports: Hx Cerebrovascular Accident. Denies: Hx Seizures Endocrine Medical History: Denies: Hx Diabetes Mellitus Type 1 Renal/ Medical History: Denies: Hx Peritoneal Dialysis Psychiatric Medical History: Reports: Hx Depression - Does not take medication. Ongoing - Immunizations Hx Diphtheria, Pertussis, Tetanus Vaccination: Yes Review of Systems - Review of Systems Notes: Constitutional: Negative for fever. HENT: Negative for sore throat. Eyes: Negative for visual changes. Cardiovascular: Negative for chest pain. Respiratory: Negative for shortness of breath. Gastrointestinal: Positive for lower abdominal pain Genitourinary: Negative for dysuria. Musculoskeletal: Negative for back pain. Skin: Negative for rash. Neurological: Negative for headaches, weakness or numbness. 10 point ROS negative except as marked above and in HPI. Physical Exam - Vital signs Vitals: Temp Pulse Resp BP Pulse Ox 99.2 F 105 H 20 136/85 H 98 03/14/18 20:14 03/14/18 20:14 03/14/18 20:14 03/14/18 20:14 03/14/18 20:14 Interpretation: Tachycardic - Resolved at the time of my assessment Notes: PHYSICAL EXAMINATION: GENERAL: Well-appearing, well-nourished and in no acute distress. HEAD: Atraumatic, normocephalic. EYES: Pupils equal round and reactive to light, extraocular movements intact, sclera anicteric, conjunctiva are normal. ENT: nares patent, oropharynx clear without exudates. Moist mucous membranes. NECK: Normal range of motion, supple without lymphadenopathy LUNGS: Breath sounds clear to auscultation bilaterally and equal. No wheezes rales or rhonchi. HEART: Regular rate and rhythm without murmurs ABDOMEN: Soft, there is a prominent left inguinal hernia that is firm and tender to palpation. No other focal abdominal tenderness, rebound or guarding. EXTREMITIES: Normal range of motion, no pitting or edema. No cyanosis. NEUROLOGICAL: No focal neurological deficits. Moves all extremities spontaneously and on command. PSYCH: Normal mood, normal affect. SKIN: Warm, Dry, normal turgor, no rashes or lesions noted. Course - Re-evaluation Re-evalutation: 03/14/18 21:59 Patient presents with an incarcerated left inguinal hernia which was to be reduced by placing the patient in a supine position and applying to direct, steady pressure to the area. After approximately 30 seconds the area did reduce and the patient had complete resolution of his pain. The remainder of the examination is otherwise unremarkable. I have encouraged the patient to follow-up with surgery for definitive correction of the area. At this time will discharge with return precautions and follow-up recommendations. Verbal discharge instructions given a the bedside and opportunity for questions given. Medication warnings reviewed. Patient is in agreement with this plan and has verbalized understanding of return precautions and the need for primary care follow-up in the next 24-72 hours. - Vital Signs Vital signs: Temp Pulse Resp BP Pulse Ox 99.2 F 79 16 147/82 H 97 03/14/18 20:14 03/14/18 22:30 03/14/18 22:30 03/14/18 22:30 03/14/18 22:30 Discharge - Discharge Clinical Impression: Left inguinal hernia Condition: Good Disposition: HOME, SELF-CARE Additional Instructions: You were seen today for a left inguinal hernia that was able to be reduced here in the emergency department. He did follow-up with general surgery for definitive correction of this hernia. If the area recurs and will not go down easily, lie down on a bed over the floor, applying ice packs to the area and applied gentle, continuous pressure. If this is unsuccessful please return immediately to the emergency department. Please also return to the area becomes extremely painful, you develop vomiting, fever greater than 100.4 F, or any other symptoms that are worrisome to you. Referrals: BAO MCKEON MD [ACTIVE STAFF] - Follow up in 3-5 days
[2018-03-15 00:24] VITALS: BP 147/82
== END 2018-03-14 22:45 | disposition home or self-care (01) ==
LOC: ER 19:59
DX: K40.90 Unilateral inguinal hernia, without obstruction or gangrene, not specified as recurrent (principal); R10.30 Lower abdominal pain, unspecified; F17.200 Nicotine dependence, unspecified, uncomplicated
CPT/HCPCS: 99283

== ENCOUNTER 2018-03-19 11:43 | Emergency (ER) | payer SELFPAY ==
[2018-03-19 11:54] VITALS: BP 138/77
[2018-03-19] MEDS ORDERED: NORMAL SALINE 1000 ML 1,000 ML IV ONE (12:40)
[2018-03-19 13:49] LABS: ABSOLUTE EOSINOPHILS # (AUTO) 0.1 10^3/uL (0.0-0.6); ABSOLUTE LYMPHOCYTES (AUTO) 1.3 10^3/uL (0.5-4.7); ABSOLUTE MONOCYTES (AUTO) 1.1 10^3/uL (0.1-1.4); ABSOLUTE NEUT (AUTO) 4.9 10^3/uL (1.7-8.2); APPEARANCE,URINE SLIGHTLY-CLOUDY; BASOPHILS % (AUTO) 0.5 % (0-2); BILIRUBIN,URINE NEGATIVE (NEGATIVE); COLOR,URINE YELLOW; EOSINOPHILS % (AUTO) 0.7 % (0-6); GLUCOSE, URINE NEGATIVE (NEGATIVE); HEMOGLOBIN 15.6 g/dL (13.5-17.0); KETONES,URINE 20 mg/dL (NEGATIVE); LEUKOCYTE ESTERASE,URINE TRACE (NEGATIVE); LYMPHOCYTES % (AUTO) 17.2 % (13-45); MEAN CORPUSCULAR HEMOGLOBIN 31.9 pg (27.0-33.4); MEAN CORPUSCULAR HGB CONC 33.9 g/dL (32.0-36.0); MEAN CORPUSCULAR VOLUME 94 fl (80-97); NITRITE,URINE NEGATIVE (NEGATIVE); PLATELET COUNT 232 10^3/uL (150-450); PROTEIN,URINE NEGATIVE (NEGATIVE); RED BLOOD COUNT 4.89 10^6/uL (4.35-5.55); SEGMENTED NEUTROPHILS % (AUTO) 66.6 % (42-78); TOTAL CELLS COUNTED % (AUTO) 100 %; WHITE BLOOD COUNT 7.3 10^3/uL (4.0-10.5)
[2018-03-19 15:33] LABS: ALANINE AMINOTRANSFERASE 23 U/L (21-72); ALBUMIN 4.1 g/dL (3.5-5.0); ALKALINE PHOSPHATASE 151 U/L (38-126); ANION GAP 12 (5-19); ASPARTATE AMINO TRANSFERASE 31 U/L (17-59); BILIRUBIN,DIRECT 0.5 mg/dL (0.0-0.4); BILIRUBIN,TOTAL 1.2 mg/dL (0.2-1.3); BLOOD UREA NITROGEN 10 mg/dL (7-20); CALCIUM 9.3 mg/dL (8.4-10.2); CARBON DIOXIDE 22 mmol/L (22-30); CHLORIDE 101 mmol/L (98-107); GLUCOSE 115 mg/dL (75-110); LIPASE 136.4 U/L (23-300); POTASSIUM 4.2 mmol/L (3.6-5.0); SODIUM 135.1 mmol/L (137-145); TOTAL PROTEIN 7.8 g/dL (6.3-8.2)
[2018-03-19 15:36] LABS: ALCOHOL < 10 mg/dL (NONE DETECTED)
--- NOTE | 2018-03-19 16:20 | ER Document Report ---
ED General - General Chief Complaint: General Weakness Stated Complaint: WEAKNESS Time Seen by Provider: 03/19/18 12:34 TRAVEL OUTSIDE OF THE [place] IN LAST 30 DAYS: No - HPI Patient complains to provider of: Generalized weakness Notes: Patient coming in for generalized weakness. Patient denies any fevers chills nausea vomiting diarrhea. Patient states he feels generally weak. Patient states he has not had any alcohol drink "quite some time. Patient otherwise on my evaluation looks disheveled. Patient does not endorse any homelessness at this time. States that he was at his place of residence does not have any resources began to feel weak went to a neighbor's house to call 911. Patient states he has been tolerating p.o. drinking plenty water. Otherwise patient looks to be no obvious distress upon my evaluation. - Related Data Allergies/Adverse Reactions: No Known Allergies Allergy (Verified 03/19/18 12:32) Past Medical History - Social History Smoking Status: Current Every Day Smoker Frequency of alcohol use: None Drug Abuse: None Family History: Reviewed & Not Pertinent Patient has suicidal ideation: No Patient has homicidal ideation: No Neurological Medical History: Reports: Hx Cerebrovascular Accident. Denies: Hx Seizures Endocrine Medical History: Denies: Hx Diabetes Mellitus Type 1 Renal/ Medical History: Denies: Hx Peritoneal Dialysis Psychiatric Medical History: Reports: Hx Depression - Does not take medication. Ongoing - Immunizations Hx Diphtheria, Pertussis, Tetanus Vaccination: Yes Review of Systems - Review of Systems Constitutional: Weakness EENT: No symptoms reported Cardiovascular: No symptoms reported Respiratory: No symptoms reported Gastrointestinal: No symptoms reported Genitourinary: No symptoms reported Male Genitourinary: No symptoms reported Musculoskeletal: No symptoms reported Skin: No symptoms reported Hematologic/Lymphatic: No symptoms reported Neurological/Psychological: No symptoms reported -: Yes All other systems reviewed and negative Physical Exam - Vital signs Vitals: Temp Pulse Resp BP Pulse Ox 98.8 F 99 16 138/77 H 99 03/19/18 11:48 03/19/18 11:48 03/19/18 11:48 03/19/18 11:48 03/19/18 11:48 Interpretation: Normal - General General appearance: Appears well - Disheveled, Alert - HEENT Head: Normocephalic, Atraumatic Eyes: Normal Pupils: PERRL - Respiratory Respiratory status: No respiratory distress Chest status: Nontender Breath sounds: Normal Chest palpation: Normal - Cardiovascular Rhythm: Regular Heart sounds: Normal auscultation Murmur: No - Abdominal Inspection: Normal Distension: No distension Bowel sounds: Normal Tenderness: Nontender Organomegaly: No organomegaly - Back Back: Normal, Nontender - Extremities General upper extremity: Normal inspection, Nontender, Normal color, Normal ROM , Normal temperature General lower extremity: Normal inspection, Nontender, Normal color, Normal ROM , Normal temperature, Normal weight bearing. No: Fani's sign - Neurological Neuro grossly intact: Yes Cognition: Normal Orientation: AAOx4 Tatianna Coma Scale Eye Opening: Spontaneous Tat[place]na Coma Scale Verbal: Oriented Tat[place]na Coma Scale Motor: Obeys Commands Tatianna Coma Scale Total: 15 Speech: Normal Motor strength normal: LUE, RUE, LLE, RLE Sensory: Normal - Psychological Associated symptoms: Normal affect, Normal mood - Skin Skin Temperature: Warm Skin Moisture: Dry Skin Color: Normal Course - Re-evaluation Re-evalutation: 03/19/18 20:43 Lab work showed no acute findings. Patient was able tolerate p.o. here and ambulating around the ER without the quality. Did have social work involved and they will continue to follow the patient did offer resources for the patient. Patient otherwise is only asking for a ride home. Patient will be discharged - Vital Signs Vital signs: Temp Pulse Resp BP Pulse Ox 98.8 F 99 16 138/77 H 99 03/19/18 11:48 03/19/18 11:48 03/19/18 11:48 03/19/18 11:48 03/19/18 11:48 - Laboratory Result Diagrams: 03/19/18 13:00 03/19/18 14:58 Laboratory results interpreted by me: 03/19/18 03/19/18 03/19/18 13:00 13:00 14:58 Monocytes % 15.0 H Sodium 135.1 L Glucose 115 H Direct Bilirubin 0.5 H Alkaline Phosphatase 151 H Urine Ketones 20 H Urine Blood SMALL H Urine Urobilinogen 2.0 H Ur Leukocyte Esterase TRACE H Discharge - Discharge Clinical Impression: Weakness Condition: Good Disposition: HOME, SELF-CARE Instructions: Weakness (OM) Additional Instructions: Laboratory studies today show no acute findings. Please make sure you are eating and drinking a healthy diet full of water and healthy food. Return to the ER for any other concerns.
== END 2018-03-19 16:10 | disposition home or self-care (01) ==
LOC: ER 11:43
DX: R53.1 Weakness (principal); F17.200 Nicotine dependence, unspecified, uncomplicated
CPT/HCPCS: 99284; 96360; 36415; 80307; 83690; 85025; 80053; 81001; J7030

== ENCOUNTER 2018-04-13 19:25 | Emergency (ER) | payer MEDICARE, OTHER ==
--- NOTE | 2018-04-13 20:12 | ER Document Report ---
ED Fall - General Chief Complaint: Fall Injury Stated Complaint: FALL Time Seen by Provider: 04/13/18 19:35 Mode of Arrival: Medic Information source: Patient, Emergency Med Personnel Notes: Patient is a 63-year-old male who presents with chief complaint of mechanical fall. Patient reports that he has been drinking alcohol today and lost his footing. Patient denies any pain or injuries. Patient is not sure if he hit his head or not. TRAVEL OUTSIDE OF THE [place] IN LAST 30 DAYS: No - Related data Allergies/Adverse Reactions: No Known Allergies Allergy (Verified 03/19/18 12:32) Past Medical History - Social History Smoking Status: Current Every Day Smoker Chew tobacco use (# tins/day): No Frequency of alcohol use: Heavy Family History: Reviewed & Not Pertinent Patient has suicidal ideation: No Patient has homicidal ideation: No Neurological Medical History: Reports: Hx Cerebrovascular Accident. Denies: Hx Seizures Endocrine Medical History: Denies: Hx Diabetes Mellitus Type 1 Renal/ Medical History: Denies: Hx Peritoneal Dialysis Psychiatric Medical History: Reports: Hx Depression - Does not take medication. Ongoing - Immunizations Hx Diphtheria, Pertussis, Tetanus Vaccination: Yes Physical Exam - Vital signs Vitals: Temp Pulse Resp BP Pulse Ox 98.0 F 96 18 141/90 H 93 04/13/18 19:35 04/13/18 19:35 04/13/18 19:35 04/13/18 19:35 04/13/18 19:35 Course - Re-evaluation Re-evalutation: Multiple abrasions noted to patient's bilateral arms and legs. Patient smells heavily of EtOH. Patient is unclear if he hit his head or not. CT head and CT C-spine will be obtained as due to patient's acute alcohol intoxication we cannot rule out head/neck injury 04/13/18 21:[address] cervical spine are negative for any acute findings. Patient can be discharged as soon as he is clinically sober and can ambulate with a steady gait. Patient standing upright, ambulating around the department with a steady gait. Nursing given approval to discharge patient at this time. - Vital Signs Vital signs: Temp Pulse Resp BP Pulse Ox 98.3 F 77 15 128/70 H 99 04/13/18 23:19 04/13/18 23:19 04/13/18 23:19 04/13/18 23:19 04/13/18 23:19 Discharge - Discharge Clinical Impression: Abrasion Fall Qualifiers: Encounter type: initial encounter Qualified Code(s): W19.XXXA - Unspecified fall, initial encounter Contusion Qualifiers: Encounter type: initial encounter Contusion area: upper arm Laterality: unspecified laterality Qualified Code(s): S40.029A - Contusion of unspecified upper arm, initial encounter Condition: Stable Disposition: HOME, SELF-CARE Additional Instructions: Contusion Your injury has resulted in a contusion -- a crushing of the deep tissues. No injury to important structures was detected during the physician's exam. Contusions vary in the amount of pain they cause, and in the length of time required for healing. Typically, the area will become bruised, and will remain painful to touch for two or three weeks. However, most patients are back to working and playing within a few days. After the initial period of rest and cold-packs, your symptoms (together with the doctor's recommendations) will determine how rapidly you can get back to full activity. Usually this means "do what feels okay, but don't do things that hurt." If re-examination was recommended, it's important to follow up as instructed. Call the doctor or return any time if pain increases, if swelling becomes severe, if you develop numbness or weakness in an injured extremity, or if any other alarming symptoms occur. Abrasions An abrasion is a scraping injury of the skin. Some scarring may result. The seriousness of an abrasion is not always obvious at first. Hidden tissue damage may be present and infection may occur despite proper care. Complete healing may take from ten days to as long as a month. The healing time depends on the depth of the abrasion, and on the amount of crushing of underlying tissues from the injury. Keep the wound and dressing clean. Do not shower or bathe the area until okayed by the doctor. If the dressing gets wet, remove it and blot the wound dry, then reapply a clean dressing. Dressings should be changed every day. Sunscreen should be used for six months after the skin is healed. If any signs of infection occur (swelling, redness, increasing tenderness, red streaks, profuse purulent drainage from the abrasion, tender lumps in the armpit or groin above the abrasion, or fever), see the doctor immediately. Please return to the emergency department if you develop any worsening symptoms. Your head CT and neck CT were negative today. Please apply bacitracin and clean bandages to your abrasions 1-2 times daily.
--- NOTE | 2018-04-13 20:27 | RADIOLOGY REPORT (SQ) ---
EXAM DESCRIPTION: CT HEAD WITHOUT COMPLETED DATE/TIME: 04/13/2018 8:08 pm REASON FOR STUDY: fall, etoh COMPARISON: 02/27/2018 TECHNIQUE: Axial images acquired through the brain without intravenous contrast. Images reviewed wi th bone, brain and subdural windows. Images stored on PACS. All CT scanners at this facility use dose modulation, iterative reconstruction, and/or weight based d osing when appropriate to reduce radiation dose to as low as reasonably achievable (ALARA). [facility]: Dose Right [facility]: CareDose [facility]: Dose Right [facility]: Teradose 4D [facility]: Smart [employer] RADIATION DOSE: CT Rad equipment meets quality standard of care and radiation dose reduction techniq ues were employed. CTDIvol: 53.2 mGy. DLP: 991 mGy-cm. mGy. LIMITATIONS: None. FINDINGS: VENTRICLES: Normal size and contour. CEREBRUM: No masses. No hemorrhage. No midline shift. No evidence for acute infarction. Normal gra y/white matter differentiation. No areas of low density in the white matter. CEREBELLUM: No masses. No hemorrhage. No alteration of density. No evidence for acute infarction. EXTRAAXIAL SPACES: No fluid collections. No masses. ORBITS AND GLOBE: No intra- or extraconal masses. Normal contour of globe without masses. CALVARIUM: No fracture. PARANASAL SINUSES: No fluid or mucosal thickening. SOFT TISSUES: No mass or hematoma. OTHER: No other significant finding. IMPRESSION: No acute intracranial findings. EVIDENCE OF ACUTE STROKE: NO. COMMENT: Quality ID # [id number]: Final reports with documentation of one or more dose reduction techniques (e.g., Automated exposure control, adjustment of the mA and/or kV according to patient size, use of iterative reconstruction technique) TECHNICAL DOCUMENTATION: JOB ID: [id number] [place]-72 2010 [employer]- All Rights Reserved Reading location - IP/workstation name: [email or web address]
--- NOTE | 2018-04-13 20:29 | RADIOLOGY REPORT (SQ) ---
EXAM DESCRIPTION: CT CERVICAL SPINE WITHOUT COMPLETED DATE/TIME: 04/13/2018 8:08 pm REASON FOR STUDY: fall, etoh COMPARISON: 02/27/2018 TECHNIQUE: Axial images acquired through the cervical spine without intravenous contrast. Images re viewed with lung, soft tissue and bone windows. Reconstructed coronal and sagittal MPR images review ed. Images stored on PACS. All CT scanners at this facility use dose modulation, iterative reconstruction, and/or weight based d osing when appropriate to reduce radiation dose to as low as reasonably achievable (ALARA). [facility]: Dose Right [facility]: CareDose [facility]: Dose Right [facility]: Teradose 4D [facility]: Smart [employer] RADIATION DOSE: CT Rad equipment meets quality standard of care and radiation dose reduction techniq ues were employed. CTDIvol: 24.0 mGy. DLP: 484 mGy-cm. mGy. LIMITATIONS: None. FINDINGS: ALIGNMENT: Anatomic. MINERALIZATION: Normal. VERTEBRAL BODIES: No fractures or dislocation. DISCS: Multilevel disc space narrowing with osteophytes. FACETS, LATERAL MASSES, POSTERIOR ELEMENTS: Facet arthropathy. No fractures. No dislocation. No ac [place] findings. HARDWARE: None in the spine. VISUALIZED RIBS: No fractures. LUNG APICES AND SOFT TISSUES: No significant or acute findings. OTHER: No other significant finding. IMPRESSION: No acute osseous findings. TECHNICAL DOCUMENTATION: JOB ID: [id number] Quality ID # [id number]: Final reports with documentation of one or more dose reduction techniques (e.g., Au tomated exposure control, adjustment of the mA and/or kV according to patient size, use of iterative reconstruction technique) 2010 [employer]- All Rights Reserved Reading location - IP/workstation name: [email or web address]
[2018-04-13 23:20] VITALS: BP 128/70
== END 2018-04-13 23:28 | disposition home or self-care (01) ==
LOC: ER 19:25
DX: S40.029A Contusion of unspecified upper arm, initial encounter (principal); S40.812A Abrasion of left upper arm, initial encounter; S40.811A Abrasion of right upper arm, initial encounter; S80.812A Abrasion, left lower leg, initial encounter; S80.811A Abrasion, right lower leg, initial encounter; W19.XXXA Unspecified fall, initial encounter; F10.129 Alcohol abuse with intoxication, unspecified; F17.200 Nicotine dependence, unspecified, uncomplicated
CPT/HCPCS: 99284; 70450; 72125; L0120

== ENCOUNTER 2018-04-14 09:14 | Emergency (ER) | payer MEDICARE ==
--- NOTE | 2018-04-14 09:20 | ER Document Report ---
Doctor's Note Notes: 04/14/18 09:19 Patient evaluated. Vital signs reviewed. He has no acute complaints. He states he is feeling much better and would like to go home. He currently does not feel suicidal. There were no acute overnight issues. Plan currently for patient to be transferred to [facility] for further psychiatric evaluation.
[2018-04-14 09:42] VITALS: BP 140/84
[2018-04-14] MEDS ORDERED: DIPH/PERTUSS(ACELL)/TETANUS VAC/PF 0.5 ML SYR (>=10YO) IM ONE (09:56)
--- NOTE | 2018-04-14 10:13 | ER Document Report ---
ED Fall - General Chief Complaint: Fall Stated Complaint: FALL FACIAL INJURY Time Seen by Provider: 04/14/18 09:26 TRAVEL OUTSIDE OF THE [place] IN LAST 30 DAYS: No - HPI Notes: Patient is a 63-year-old male that presents to the emergency department for chief complaint of fall. Patient states he was drinking alcohol while walking and fell forward. He states he tripped and did not lose consciousness. He denies syncope. He states he did hit his face on the ground but denies any LOC with impact. EMS reports that he did lose consciousness. He is unsure of his last tetanus vaccination. His only complaint right now is pain in his right hand. He is unsure of his last tetanus vaccination. He denies headache, vision changes, numbness, weakness, neck and back pain, abdominal pain. Past Medical History: Negative Past Surgical History: Negative Social History: Daily alcohol, daily tobacco, denies drugs Family History: Reviewed and noncontributory for presenting illness Allergies: Reviewed, see documented allergy list. REVIEW OF SYSTEMS: CONSTITUTIONAL : No fever No chills No diaphoresis No recent illness EENT: No vision changes No congestion No sore throat CARDIOVASCULAR: No chest pain No palpitations RESPIRATORY: No shortness of breath No cough No difficulty breathing GASTROINTESTINAL: No abdominal pain No nausea No vomiting No diarrhea GENITOURINARY: No dysuria No hematuria No difficulty urinating MUSCULOSKELETAL: No back pain No leg pain Hand pain SKIN: No rashes Abrasions LYMPHATIC: No swollen, enlarged glands. NEUROLOGICAL: No lightheadedness No headache No weakness No paresthesias PSYCHIATRIC: No anxiety No depression PHYSICAL EXAMINATION: Vital signs reviewed, nursing noted reviewed. GENERAL: Well-appearing, well-nourished and in no acute distress. Appears intoxicated but is conversational HEAD: Atraumatic, normocephalic. EYES: Eyes appear normal, extraocular movements intact, sclera anicteric, conjunctiva are normal. ENT: nares patent, oropharynx clear without exudates. Moist mucous membranes. No jaw malocclusion. No facial bone tenderness. No nasal septal hematoma or nasal bone tenderness. No dental fractures. NECK: Normal range of motion, supple without lymphadenopathy midline spinal tenderness. Back: No midline thoracic or lumbar tenderness LUNGS: Breath sounds clear to auscultation bilaterally and equal. No wheezes rales or rhonchi. HEART: Regular rate and rhythm without murmurs ABDOMEN: Soft, nontender, normoactive bowel sounds. No rebound, guarding, or rigidity. No masses appreciated. EXTREMITIES: Right hand tenderness with no deformity or edema. Good range of motion, no pitting or edema. Pelvis stable. No hip tenderness bilaterally. No long bone deformity or tenderness. NEUROLOGICAL: No focal neurological deficits. Moves all extremities spontaneously Motor and sensory grossly intact on exam. PSYCH: Normal mood, normal affect. SKIN: Warm, Dry, normal turgor. Superficial abrasion to bilateral anterior knees, bilateral elbows, dorsal left wrist, left cheek, and left upper lip - Related data Allergies/Adverse Reactions: No Known Allergies Allergy (Verified 03/19/18 12:32) Past Medical History - Social History Smoking Status: Current Every Day Smoker Frequency of alcohol use: Heavy Family History: Reviewed & Not Pertinent Patient has suicidal ideation: No Patient has homicidal ideation: No Neurological Medical History: Reports: Hx Cerebrovascular Accident. Denies: Hx Seizures Endocrine Medical History: Denies: Hx Diabetes Mellitus Type 1 Renal/ Medical History: Denies: Hx Peritoneal Dialysis Psychiatric Medical History: Reports: Hx Depression - Does not take medication. Ongoing - Immunizations Hx Diphtheria, Pertussis, Tetanus Vaccination: Yes Review of Systems - Review of Systems Notes: Dictated Physical Exam - Vital signs Vitals: Temp Pulse Resp BP Pulse Ox 98.5 F 101 H 18 140/84 H 100 04/14/18 09:25 04/14/18 09:25 04/14/18 09:25 04/14/18 09:25 04/14/18 09:25 - Notes Notes: Dictated Course - Re-evaluation Re-evalutation: 04/14/18 10:19 Vitals reviewed. Nursing notes reviewed. Patient placed in cervical collar because he is failing Nexus criteria with his acute intoxication. Tetanus vaccine was updated. All of his abrasions are superficial and not requiring laceration repair. Abrasions are cleaned and dressed. 04/14/18 11:17 Patient still hemodynamically stable and in no acute distress. He is able to speak in full sentences and understands his medical care. CT brain, cervical spine, and facial bones negative for acute injury. The x-ray of his right hand shows a possible nondisplaced navicular and distal radius fracture. Patient's right hand was splinted. He will be referred to orthopedics for follow-up. Discharged home in stable condition. Cervical Spine CT 04/14/18 09:26 IMPRESSION: 1. No significant interval changes since the prior examination dated 04/13/2018. NO ACUTE osseous findings. Facial Bones CT 04/14/18 09:26 IMPRESSION: 1. NO ACUTE FINDINGS. 2. Slight right maxillary and frontal sinus disease. No air-fluid levels. Head CT 04/14/18 09:26 IMPRESSION: 1. No acute intracranial abnormality. 2. Additional findings as above. EVIDENCE OF ACUTE STROKE: NO. Hand X-Ray 04/14/18 09:55 IMPRESSION: 1. Question of nondisplaced fractures involving the distal radius and proximal navicular bone. Correlation with history and symptoms suggested. - Vital Signs Vital signs: Temp Pulse Resp BP Pulse Ox 98.5 F 101 H 18 140/84 H 100 04/14/18 09:25 04/14/18 09:25 04/14/18 09:25 04/14/18 09:25 04/14/18 09:25 - EKG Interpretation by Me Additional EKG results interpreted by me: 04/14/18 10:21 0 926: Normal sinus rhythm, rate 98, normal axis, no ectopy, no ST elevation Discharge - Discharge Clinical Impression: Fracture of right distal radius Qualifiers: Encounter type: initial encounter Fracture type: closed Fracture morphology: other fracture Qualified Code(s): S52.591A - Other fractures of lower end of right radius, initial encounter for closed fracture Fracture of navicular bone of right wrist Qualifiers: Encounter type: initial encounter Scaphoid bone location: unspecified portion of scaphoid Fracture type: closed Closed head injury Qualifiers: Encounter type: initial encounter Qualified Code(s): S09.90XA - Unspecified injury of head, initial encounter Facial abrasion Qualifiers: Encounter type: initial encounter Qualified Code(s): S00.81XA - Abrasion of other part of head, initial encounter Abrasion of multiple sites of lower extremity Qualifiers: Encounter type: initial encounter Laterality: unspecified laterality Qualified Code(s): S80.819A - Abrasion, unspecified lower leg, initial encounter Condition: Stable Disposition: HOME, SELF-CARE Instructions: Possible Hidden Navicular Fracture ([facility]), Fractured Radius ([facility]) , Head Injury Precautions ([facility]) Additional Instructions: Please return to the emergency department if you have any worsening, or concern of your symptoms. Please return to the emergency department if you develop chest pain, difficulty breathing, severe abdominal pain, or ongoing vomiting. Please follow-up with your primary care physician in 2-3 days and any other recommended physicians. If prescribed, take all medications as directed. If you have any questions or concerns do not hesitate to return the emergency department for evaluation. [] Referrals: WIL MOSS MD [ACTIVE STAFF] - Follow up in 1 week
--- NOTE | 2018-04-14 10:40 | RADIOLOGY REPORT (SQ) ---
EXAM DESCRIPTION: CT HEAD WITHOUT COMPLETED DATE/TIME: 04/14/2018 10:15 am REASON FOR STUDY: trauma, fall COMPARISON: 11/27/2017 TECHNIQUE: Axial images acquired through the brain without intravenous contrast. Images reviewed wi th bone, brain and subdural windows. Additional sagittal and coronal reconstructions were generated. Images stored on PACS. All CT scanners at this facility use dose modulation, iterative reconstruction, and/or weight based d osing when appropriate to reduce radiation dose to as low as reasonably achievable (ALARA). [facility]: Dose Right [facility]: CareDose [facility]: Dose Right [facility]: Teradose 4D [facility]: [employer] RADIATION DOSE: CT Rad equipment meets quality standard of care and radiation dose reduction techniq ues were employed. CTDIvol: 53.2 mGy. DLP: 991 mGy-cm. mGy. LIMITATIONS: None. FINDINGS: VENTRICLES: Stable in appearance. The cisterns are patent. CEREBRUM: Partial volume averaging of the right frontal bone with the brain parenchyma best noted on axial image 20, series 2. Small old remote right lacune. No masses. No hemorrhage. No midline sh ift. No evidence for acute infarction. CEREBELLUM: No masses. No hemorrhage. No alteration of density. No evidence for acute infarction. EXTRAAXIAL SPACES: Mild age related involutional change. No fluid collections. No masses. ORBITS AND GLOBE: No intra- or extraconal masses. Normal contour of globe without masses. CALVARIUM: The osseous structures are stable in appearance. PARANASAL SINUSES: No fluid or mucosal thickening. SOFT TISSUES: No mass or hematoma. OTHER: No other significant finding. IMPRESSION: 1. No acute intracranial abnormality. 2. Additional findings as above. EVIDENCE OF ACUTE STROKE: NO. COMMENT: Quality ID # [id number]: Final reports with documentation of one or more dose reduction techniques (e.g., Automated exposure control, adjustment of the mA and/or kV according to patient size, use of iterative reconstruction technique) TECHNICAL DOCUMENTATION: JOB ID: [id number] [employer]- All Rights Reserved Reading location - IP/workstation name: [email or web address]
--- NOTE | 2018-04-14 10:46 | RADIOLOGY REPORT (SQ) ---
EXAM DESCRIPTION: CT FACIAL AREA WITHOUT COMPLETED DATE/TIME: 04/14/2018 10:15 am REASON FOR STUDY: trauma, fall COMPARISON: None. TECHNIQUE: Noncontrasted images through the facial bones and orbits windowed for bone and soft tissu e. Additional coronal and sagittal reconstructed images reviewed. All images stored on PACS. All CT scanners at this facility use dose modulation, iterative reconstruction, and/or weight based d osing when appropriate to reduce radiation dose to as low as reasonably achievable (ALARA). [facility]: Dose Right [facility]: CareDose [facility]: Dose Right [facility]: Teradose 4D [facility]: [employer] RADIATION DOSE: CT Rad equipment meets quality standard of care and radiation dose reduction techniq ues were employed. CTDIvol: 30.4 mGy. DLP: 593 mGy-cm. LIMITATIONS: None. FINDINGS: FACIAL BONES: No fracture or bone lesion. ORBITS: Intact. No fracture. Symmetric intact globes and retroorbital soft tissues. PARANASAL SINUSES: Slight mucosal thickening right maxillary and left frontal sinuses. No air-fluid levels. No nasal polyps. Maxillary sinus outlets are patent. Mild deviation of the nasal septum to the right of the midline. Kourtney bullosa in the middle terminates bilaterally. SOFT TISSUES: No mass or edema. INFERIOR BRAIN: Limited view. No acute findings. OTHER: Pneumatization of the right anterior clinoid process, normal anatomic variant. IMPRESSION: 1. NO ACUTE FINDINGS. 2. Slight right maxillary and frontal sinus disease. No air-fluid levels. TECHNICAL DOCUMENTATION: JOB ID: [id number] Quality ID # [id number]: Final reports with documentation of one or more dose reduction techniques (e.g., Au tomated exposure control, adjustment of the mA and/or kV according to patient size, use of iterative reconstruction technique) 2010 [employer]- All Rights Reserved Reading location - IP/workstation name: [email or web address]
--- NOTE | 2018-04-14 10:51 | RADIOLOGY REPORT (SQ) ---
EXAM DESCRIPTION: CT CERVICAL SPINE WITHOUT COMPLETED DATE/TIME: 04/14/2018 10:15 am REASON FOR STUDY: trauma, fall COMPARISON: 04/13/2018 TECHNIQUE: Axial images acquired through the cervical spine without intravenous contrast. Images re viewed with lung, soft tissue and bone windows. Reconstructed coronal and sagittal MPR images review ed. Images stored on PACS. All CT scanners at this facility use dose modulation, iterative reconstruction, and/or weight based d osing when appropriate to reduce radiation dose to as low as reasonably achievable (ALARA). [facility]: Dose Right [facility]: CareDose [facility]: Dose Right [facility]: Teradose 4D [facility]: Smart [employer] RADIATION DOSE: CT Rad equipment meets quality standard of care and radiation dose reduction techniq ues were employed. CTDIvol: 24.3 mGy. DLP: 463 mGy-cm. mGy. LIMITATIONS: None. FINDINGS: ALIGNMENT: Anatomic. MINERALIZATION: Normal. VERTEBRAL BODIES: No fractures or dislocation. DISCS: No significant disc disease. FACETS, LATERAL MASSES, POSTERIOR ELEMENTS: Mild facet arthropathy. No fractures. No dislocation. No acute findings. HARDWARE: None in the spine. VISUALIZED RIBS: No fractures. LUNG APICES AND SOFT TISSUES: No significant or acute findings. OTHER: No other significant finding. IMPRESSION: 1. No significant interval changes since the prior examination dated 04/13/2018. NO ACU TE osseous findings. TECHNICAL DOCUMENTATION: JOB ID: [id number] Quality ID # [id number]: Final reports with documentation of one or more dose reduction techniques (e.g., Au tomated exposure control, adjustment of the mA and/or kV according to patient size, use of iterative reconstruction technique) 2010 [employer]- All Rights Reserved Reading location - IP/workstation name: [email or web address]
--- NOTE | 2018-04-14 10:55 | RADIOLOGY REPORT (SQ) ---
EXAM DESCRIPTION: HAND RIGHT 3 VIEWS COMPLETED DATE/TIME: 04/14/2018 10:23 am REASON FOR STUDY: trauma COMPARISON: None. EXAM PARAMETERS: NUMBER OF VIEWS: Three views. TECHNIQUE: AP, lateral and oblique radiographic images acquired of the right hand. LIMITATIONS: Limited examination due to patient's clinical condition. FINDINGS: MINERALIZATION: Normal. BONES: Question of nondisplaced fractures involving the proximal navicular bone and distal radius. Mild deformity of the fifth metacarpal bone probably related prior remote trauma. JOINTS: No effusions. SOFT TISSUES: No soft tissue swelling. No foreign body. OTHER: No other significant finding. IMPRESSION: 1. Question of nondisplaced fractures involving the distal radius and proximal navicula r bone. Correlation with history and symptoms suggested. TECHNICAL DOCUMENTATION: JOB ID: [id number] [employer]- All Rights Reserved Reading location - IP/workstation name: [email or web address]
--- NOTE | 2018-04-14 16:08 | EKG REPORT ---
SEVERITY:- NORMAL ECG - SINUS RHYTHM : Confirmed by: Valdemar Metz 14-Apr-2018 16:06:49
== END 2018-04-14 12:51 | disposition home or self-care (01) ==
LOC: ER 09:14
PROC: 2W3CX1Z Immobilization of Right Lower Arm using Splint (ICD-10-PCS; principal; 2018-04-14)
DX: S52.591A Other fractures of lower end of right radius, initial encounter for closed fracture (principal); S00.81XA Abrasion of other part of head, initial encounter; S80.819A Abrasion, unspecified lower leg, initial encounter; S09.93XA Unspecified injury of face, initial encounter; M79.641 Pain in right hand; W18.40XA Slipping, tripping and stumbling without falling, unspecified, initial encounter; F17.200 Nicotine dependence, unspecified, uncomplicated
CPT/HCPCS: 93005; 99284; 36415; 80048; 73130; 73030; 70450; 70486; 72125; 90715; 93010; 29125; L0120

== ENCOUNTER 2018-04-14 18:59 | Emergency (ER) | payer MEDICARE ==
--- NOTE | 2018-04-14 19:17 | ER Document Report ---
ED Allergic Reaction - General Stated Complaint: FALL/ARM PAIN Time Seen by Provider: 04/14/18 19:10 TRAVEL OUTSIDE OF THE [place] IN LAST 30 DAYS: No - Related Data Allergies/Adverse Reactions: No Known Allergies Allergy (Verified 03/19/18 12:32) Past Medical History - Social History Family History: Reviewed & Not Pertinent Neurological Medical History: Reports: Hx Cerebrovascular Accident. Denies: Hx Seizures Endocrine Medical History: Denies: Hx Diabetes Mellitus Type 1 Renal/ Medical History: Denies: Hx Peritoneal Dialysis Psychiatric Medical History: Reports: Hx Depression - Does not take medication. Ongoing - Immunizations Hx Diphtheria, Pertussis, Tetanus Vaccination: Yes
--- NOTE | 2018-04-14 19:31 | ER Document Report ---
ED Fall - General Chief Complaint: Fall Injury Stated Complaint: FALL/ARM PAIN Time Seen by Provider: 04/14/18 19:10 Notes: Patient is a 63 year old male that comes to the Emergency Department for chief complaint of fall. He states he lost his balance and fell into the ditch hitting his head on the left side, shoulder on the left side, and he has abrasions to his arms. He denies loss of consciousness or vomiting. He was seen earlier today for a fall as well. Past medical history of heavy alcohol abuse, he states she has had 2 beers today, he was brought in by police escort although patient did not remember this. He denies any daily medications. He reports his tetanus is up-to-date within 5 years. TRAVEL OUTSIDE OF THE [place] IN LAST 30 DAYS: No - Related data Allergies/Adverse Reactions: No Known Allergies Allergy (Verified 03/19/18 12:32) Past Medical History - General Information source: Patient - Social History Smoking Status: Current Every Day Smoker Chew tobacco use (# tins/day): No Frequency of alcohol use: Heavy Drug Abuse: None Lives with: Homeless Family History: Reviewed & Not Pertinent Patient has suicidal ideation: No Patient has homicidal ideation: No Neurological Medical History: Reports: Hx Cerebrovascular Accident. Denies: Hx Seizures Endocrine Medical History: Denies: Hx Diabetes Mellitus Type 1 Renal/ Medical History: Denies: Hx Peritoneal Dialysis Psychiatric Medical History: Reports: Hx Depression - Does not take medication. Ongoing - Immunizations Immunizations up to date: Yes Hx Diphtheria, Pertussis, Tetanus Vaccination: Yes Review of Systems - Review of Systems Constitutional: No symptoms reported EENT: No symptoms reported Cardiovascular: No symptoms reported Respiratory: No symptoms reported Gastrointestinal: No symptoms reported Genitourinary: No symptoms reported Male Genitourinary: No symptoms reported Musculoskeletal: See HPI Skin: See HPI Hematologic/Lymphatic: No symptoms reported Neurological/Psychological: See HPI Physical Exam - Vital signs Vitals: Temp Pulse Resp BP Pulse Ox 98.7 F 112 H 18 135/65 H 94 04/14/18 19:13 04/14/18 19:13 04/14/18 19:13 04/14/18 19:13 04/14/18 19:13 - Notes Notes: GENERAL: Alert, responsive, lying down calmly on the bed, no obvious distress. HEAD: Old dried blood on the upper lip, skin abrasion with slow bleeding on the left zygomatic area with mild surrounding soft tissue swelling, no noted head injury otherwise. EYES: Pupils equal, round, and reactive to light. Extraocular movements intact. ENT: Oral mucosa moist, tongue midline. Unremarkable oral pharyngeal exam. [ Nares patent, no nasal septal hematoma, TM's intact.] No current epistaxis. NECK: Full range of motion. Supple. Trachea midline. LUNGS: Clear to auscultation bilaterally, no wheezes, rales, or rhonchi. No respiratory distress. Chest nontender without any bruising. HEART: Regular rate and rhythm. No murmur ABDOMEN: Soft, non-tender. Non-distended. Bowel sounds present in all 4 quadrants. No signs of trauma over the abdomen. EXTREMITIES: Soft tissue swelling and pain over the right hand mainly dorsally extending to the wrist. No overt snuffbox tenderness. Pain with range of motion. Elbow and shoulder exam unremarkable. Left shoulder with skin abrasion at the tip of the shoulder, pain with range of motion although range of motion intact. Small abrasions of the forearm on the left side as well. Normal distal neurovascular exam and capillary refill of all extremities. Healing skin abrasions and bruising around both knees as well, no hip tenderness , normal ankle and feet exams. BACK: no cervical, thoracic, lumbar midline tenderness. No bruising, bleeding, or other signs of trauma. No saddle anesthesia, normal distal neurovascular exam. NEUROLOGICAL: Alert, oriented to person and place but not to events. Slight slurring of speech. Cranial nerves II through XII intact. PSYCH: Slightly flat affect. Calm. SKIN: Warm, dry, normal turgor. No rashes or lesions noted. Course - Re-evaluation Re-evalutation: Review of records shows that patient had his tetanus updated today and he had a splint placed on his right arm/hand for questionable nondisplaced distal radius and navicular bone fractures, patient does have soft tissue swelling of the right hand and wrist but he is not wearing a splint at this time. Patient states he is not sure what happened to it. CT of the head, neck unremarkable with no acute findings. X-ray of the shoulder with no acute findings. Patient's skin abrasions were cleaned and dressed. Patient at first slept, after this he awoke and began ambulating around, to the bathroom and otherwise. He ambulates without any difficulty. He is alert and conversational, he is cooperative, he is not slurring his speech , he is clinically sober. BMP is generally unremarkable without hyponatremia or concerning finding. On my reevaluation patient is not tachycardic. Discussed with patient. Patient states that he does have a brother that he sometimes stays with, he does not have a phone, he states that he is looking for options but is currently homeless. After discussion he requests a bottle caser consult be placed in the contact his brother for additional assistance for him. Discussed follow-up, expectations, return precautions. Patient states understanding and agreement. - Vital Signs Vital signs: Temp Pulse Resp BP Pulse Ox 98.7 F 112 H 18 135/65 H 94 04/14/18 19:13 04/14/18 19:13 04/14/18 19:13 04/14/18 19:13 04/14/18 19:13 - Laboratory Result Diagrams: 04/14/18 20:40 Laboratory results interpreted by me: 04/14/18 20:40 Glucose 120 H Discharge - Discharge Clinical Impression: Alcohol abuse, Skin abrasion Fall Qualifiers: Encounter type: initial encounter Qualified Code(s): W19.XXXA - Unspecified fall, initial encounter Left shoulder pain Qualifiers: Chronicity: acute Qualified Code(s): M25.512 - Pain in left shoulder Head injury Qualifiers: Encounter type: initial encounter Qualified Code(s): S09.90XA - Unspecified injury of head, initial encounter Condition: Stable Disposition: HOME, SELF-CARE Additional Instructions: Wear the splint. There appears to be a fracture in your hand/wrist. This will probably need a cast. Follow-up with the orthopedics referral listed. Avoid drinking to intoxication. Your imaging of the head/neck/shoulder did not show any concerning findings at this time, please follow head injury precautions listed below. Apply topical antibiotic to your skin abrasions and keep clean with soap and water. Return for any signs of infection including swelling, redness, discolored drainage, fever, etc. We have a bottle caser consult placed, they will be contacting the number that you provided. Referrals: MARISOL CERDA MD [ACTIVE STAFF] - Follow up in 3-5 days
[2018-04-14 21:05] LABS: ANION GAP 15 (5-19); BLOOD UREA NITROGEN 10 mg/dL (7-20); CALCIUM 8.7 mg/dL (8.4-10.2); CARBON DIOXIDE 22 mmol/L (22-30); CHLORIDE 103 mmol/L (98-107); GLUCOSE 120 mg/dL (75-110); POTASSIUM 4.3 mmol/L (3.6-5.0); SODIUM 140.1 mmol/L (137-145)
--- NOTE | 2018-04-14 21:38 | RADIOLOGY REPORT (SQ) ---
EXAM DESCRIPTION: Left shoulder x-rays, three views. April 14, 2018 at 9:19 PM CLINICAL HISTORY: fall, pain COMPARISON: None FINDINGS: Three x-ray views of the left shoulder were submitted. There is no acute fracture or dislocation. Bone mineralization is within normal limits. There is no radiopaque foreign body material. IMPRESSION: No acute fracture or dislocation.
--- NOTE | 2018-04-14 21:44 | RADIOLOGY REPORT (SQ) ---
EXAM DESCRIPTION: CT cervical spine without contrast. April 14, 2018 at 8:49 PM CLINICAL HISTORY: head injury, ETOH COMPARISON: None Available TECHNIQUE: Contiguous axial images of the cervical spine were obtained without the administration of intravenous contrast followed by reconstruction images. This exam was performed according to our departmental dose-optimization program, which includes automated exposure control, adjustment of the mA and/or kV according to patient size and/or use of iterative reconstruction technique. FINDINGS: There is no acute fracture or subluxation. Prevertebral soft tissues are within normal limits. IMPRESSION: No acute fracture or subluxation.
--- NOTE | 2018-04-14 21:47 | RADIOLOGY REPORT (SQ) ---
EXAM DESCRIPTION: CT brain without contrast. April 14, 2018 at 8:46 PM CLINICAL HISTORY: head injury, ETOH COMPARISON: February 27, 2018 TECHNIQUE: Contiguous axial images of the brain were obtained without the administration of intravenous contrast. This exam was performed according to our departmental dose-optimization program, which includes automated exposure control, adjustment of the mA and/or kV according to patient size and/or use of iterative reconstruction technique. FINDINGS: There is no acute intracranial hemorrhage or mass effect. Ventricular system is within normal limits. There is mild generalized atrophy. There is an old lacunar infarct within the right basal ganglia. There is atherosclerosis. There is adequate mendez-white matter differentiation. There is no skull fracture. The visualized paranasal sinuses and mastoid air cells are within normal limits. There is evidence of prior samaria holes within the left skull. IMPRESSION: No acute intracranial abnormalities.
[2018-04-15 04:59] VITALS: BP 121/64
== END 2018-04-15 01:30 | disposition home or self-care (01) ==
LOC: ER 18:59
DX: S09.90XA Unspecified injury of head, initial encounter (principal); S40.812A Abrasion of left upper arm, initial encounter; S40.811A Abrasion of right upper arm, initial encounter; M25.512 Pain in left shoulder; F17.200 Nicotine dependence, unspecified, uncomplicated; F10.10 Alcohol abuse, uncomplicated; W19.XXXA Unspecified fall, initial encounter
CPT/HCPCS: 36415; 70450; 72125; 80048; 99284

== ENCOUNTER 2018-04-15 13:15 | Emergency (ER) | payer MEDICARE ==
[2018-04-15] MEDS ORDERED: LORAZEPAM 1 MG TABLET PO ONE (14:17)
--- NOTE | 2018-04-15 14:19 | ER Document Report ---
ED General - General Chief Complaint: Depression Stated Complaint: DEPRESSION Time Seen by Provider: 04/15/18 14:06 Mode of Arrival: Ambulatory Information source: Patient Notes: 63-year-old male with alcoholism, depression, anxiety presents with complaint of low back pain and depression. Patient states low back pain has been present for 4 months. Pain is described as intermittent, aching without radiation into his legs. Patient denies saddle anesthesia, fecal incontinence, leg weakness, history of IV drug use, fever. This is the patient's fourth visit to the emergency department in the month of April. He is currently homeless, asking for a bed and something to eat. Patient was seen 1 day prior to arrival after falling. Patient also admits to depression which is not new for him. He denies any suicidal, homicidal ideation, auditory and visual hallucinations. He states that he lost his mother approximately 4 months ago which is the reason he is depressed. TRAVEL OUTSIDE OF THE [place] IN LAST 30 DAYS: No - HPI Onset: Other Quality of pain: Achy, Throbbing Severity: Mild Associated symptoms: Body/muscle aches Exacerbated by: Walking Relieved by: Supine Similar symptoms previously: Yes Recently seen / treated by doctor: Yes - 04/14/18 - Related Data Allergies/Adverse Reactions: No Known Allergies Allergy (Verified 04/15/18 14:11) Past Medical History - General Information source: Patient, [facility] Records - Social History Smoking Status: Current Every Day Smoker Cigarette use (# per day): Yes - 15 Chew tobacco use (# tins/day): No Smoking Education Provided: Yes - Smoking cessation counseling was provided for 4 minutes at the bedside Frequency of alcohol use: Heavy Drug Abuse: None Lives with: Homeless Family History: Reviewed & Not Pertinent Patient has suicidal ideation: No Patient has homicidal ideation: No Neurological Medical History: Reports: Hx Cerebrovascular Accident. Denies: Hx Seizures Endocrine Medical History: Denies: Hx Diabetes Mellitus Type 1 Renal/ Medical History: Denies: Hx Peritoneal Dialysis Psychiatric Medical History: Reports: Hx Depression - Does not take medication. Ongoing - Immunizations Immunizations up to date: Yes Hx Diphtheria, Pertussis, Tetanus Vaccination: Yes Review of Systems - Review of Systems Constitutional: denies: Chills, Fever EENT: denies: Blurred vision, Mouth pain Cardiovascular: denies: Chest pain Respiratory: denies: Short of breath Gastrointestinal: denies: Nausea, Vomiting Genitourinary: denies: Flank pain Musculoskeletal: Back pain, Joint pain, Joint swelling, Muscle pain, Muscle stiffness Skin: Change in color, Lesions, Rash Hematologic/Lymphatic: No symptoms reported Neurological/Psychological: denies: Confusion, Weakness, Lost consciousness, Headaches -: Yes All other systems reviewed and negative Physical Exam - Vital signs Vitals: Temp Pulse Resp BP Pulse Ox 99.6 F 101 H 20 123/83 96 04/15/18 13:35 04/15/18 13:35 04/15/18 13:35 04/15/18 13:35 04/15/18 13:35 - Notes Notes: PHYSICAL EXAMINATION: GENERAL: Well-appearing, well-nourished and in no acute distress. HEAD: Multiple abrasions, excoriations. EYES: Pupils equal round and reactive to light, extraocular movements intact, sclera anicteric, conjunctiva are normal. ENT: Nares patent, oropharynx clear without exudates. Moist mucous membranes. No hemotympanum NECK: Normal range of motion, supple without lymphadenopathy LUNGS: Breath sounds clear to auscultation bilaterally and equal. No wheezes rales or rhonchi. HEART: Tachycardic, regular rhythm ABDOMEN: Soft, nontender, nondistended abdomen. No guarding, no rebound. No masses appreciated. Musculoskeletal: Normal range of motion, no pitting or edema. No cyanosis. Midline tenderness of the lumbar spine without step-off or deformity. NEUROLOGICAL: Cranial nerves grossly intact. Normal speech, normal gait. Normal sensory, motor exams. 5/5 dorsi and plantar flexion PSYCH: Admits to depression but denies suicidal, homicidal ideation, visual and auditory hallucination. SKIN: Multiple excoriations, abrasions scattered diffusely throughout his body. Course - Re-evaluation Re-evalutation: 04/15/18 19:25 63-year-old male with alcoholism, depression who is well-known to the department presents with complaint of low back pain and depression. Patient states he is depressed because he lost his mother 4 months ago. He denies any suicidal, homicidal ideation. He denies any visual and auditory hallucination. Patient has been seen 4 times in the month of April. He was seen twice yesterday. Patient has had multiple frequent falls secondary to alcohol intoxication. He is currently homeless and requesting resources. Patient declining psychiatric evaluation. Social work was contacted by myself and the provider who saw him last night. Social work has offered the patient a bus ticket to his brother's house if the brother agreed that he could come. We were unable to get in touch with the brother at this time. Patient was provided a street sheet, food and transportation to the homeless correction. Patient has no interest in rehabilitation. X-rays of the lumbar spine were obtained and significant for degenerative disc disease. Presentation of a patient complaining of acute on chronic back pain. No rapid progression of symptoms, systemic symptoms including fevers, chills, weight loss, history of recent bacterial infection, bilateral symptoms, numbness, weakness, difficulty walking, urinary retention or bowel incontinence, or history of IV drug use. Exam is without pulsatile abdominal mass, and patient has symmetric and intact lower extremity strength, sensation, and reflexes without clonus. 2+ symmetric medial malleolar and dorsalis pedis pulses Based on history and physical, I have a very low suspicion of a concerning etiology of pain including epidural compression syndrome, spinal infection, compression fracture. Due to absence of concerning risk factors in history and physical as well as absence of rapidly progressive, severe, or bilateral symptoms, x-ray of the lumbar spine is significant for degenerative disc disease but no acute process. Patient slept through most of his emergency department course. On reevaluation he is alert awake and willing to go to the homeless correction. - Vital Signs Vital signs: Temp Pulse Resp BP Pulse Ox 97.7 F 88 17 126/81 H 100 04/15/18 17:00 04/15/18 17:00 04/15/18 17:00 04/15/18 17:00 04/15/18 17:00 - Diagnostic Test Radiology reviewed: Image reviewed, Reports reviewed Discharge - Discharge Clinical Impression: Abrasions of multiple sites, Alcohol abuse Low back pain Qualifiers: Chronicity: unspecified Back pain laterality: midline Sciatica presence: without sciatica Qualified Code(s): M54.5 - Low back pain Degenerative disc disease Qualifiers: Spinal region: lumbar Qualified Code(s): M51.36 - Other intervertebral disc degeneration, lumbar region Depression Qualifiers: Depression Type: other depression Qualified Code(s): F32.89 - Other specified depressive episodes Condition: Good Disposition: OTHER Instructions: Chronic Alcoholism ([facility]), Depression ([facility]), Low Back Pain ([facility]) Additional Instructions: You have been seen in the Emergency Department (ED) today for back pain. Your workup and exam have not shown any acute abnormalities and you are likely suffering from muscle strain or possible problems with your discs, but there is no treatment that will fix your symptoms at this time. Please take the naproxen that has been prescribed as directed. You should also purchase a local lidocaine cream such as "aspercreme with lidocaine" and use per bottle instructions to the affected area. Apply heat to the area as often as you are able. Continue to keep active and avoid prolonged periods of bed rest. Please follow up with your doctor as soon as possible regarding today's ED visit and your back pain. Return to the ED for worsening back pain, fever, weakness or numbness of either leg, or if you develop either (1) an inability to urinate or have bowel movements, or (2) loss of your ability to control your bathroom functions (if you start having "accidents"), or if you develop other new symptoms that concern you.concern you.
--- NOTE | 2018-04-15 15:08 | RADIOLOGY REPORT (SQ) ---
EXAM DESCRIPTION: L SPINE WHOLE COMPLETED DATE/TIME: 04/15/2018 2:41 pm REASON FOR STUDY: pain COMPARISON: None. NUMBER OF VIEWS: Five views including obliques. TECHNIQUE: AP, lateral, oblique, and sacral radiographic images acquired of the lumbar spine. LIMITATIONS: None. FINDINGS: MINERALIZATION: Normal. SEGMENTATION: Normal. No transitional anatomy. ALIGNMENT: Scoliosis convex left. VERTEBRAE/DISCS: There are 5 non rib-bearing lumbar type vertebra with scoliosis convex left. Disc s pace narrowing noted at L4-S1 consistent with degenerative disc disease. POSTERIOR ELEMENTS: Degenerative sclerosis of the apophyseal joints from L3-S1. PARASPINAL SOFT TISSUES: Normal. PELVIS: Intact as visualized. No fractures or worrisome bone lesions. SI joints intact. OTHER: No other significant finding. IMPRESSION: Lumbar spondylosis. Degenerative disc disease at L4-S1. TECHNICAL DOCUMENTATION: JOB ID: [id number] [employer]- All Rights Reserved Reading location - IP/workstation name: [email or web address]
[2018-04-15 17:04] VITALS: BP 126/81
== END 2018-04-15 17:00 | disposition other institution (70) ==
LOC: ER 13:15
DX: M54.5 Low back pain (principal); F32.89 Other specified depressive episodes; M51.36 Other intervertebral disc degeneration, lumbar region; W19.XXXA Unspecified fall, initial encounter; Z91.81 History of falling; F17.210 Nicotine dependence, cigarettes, uncomplicated; Z86.73 Personal history of transient ischemic attack (TIA), and cerebral infarction without residual deficits; Z59.0 Homelessness
CPT/HCPCS: 99406; 99284; 72110; A9270

== ENCOUNTER 2018-04-16 18:27 | Emergency (ER) | payer MEDICARE ==
--- NOTE | 2018-04-16 18:38 | ER Document Report ---
ED General - General Stated Complaint: SORE FEET Time Seen by Provider: 04/16/18 18:38 Notes: Patient is a 63-year-old male that presents to the emergency department for chief complaint of right wrist pain, foot pain and back pain. Patient believes he had a fall earlier today, and injured his right wrist. He also states his been up on his feet all day and the bottoms of his feet are hurting. He also states his back starting from the fall, currently rates the wrist pain is a 5 out of 10 describes it as a constant aching sensation, and worse with wrist movements. He does have low back pain, denies any numbness, weakness or tingling in his lower extremities, denies pain radiating down the legs. Denies any saddle anesthesias or paresthesias. The patient is homeless, he was seen in the emergency department last night, and attempts were made to get him to a homeless retirement. And the neighbors called, and he was brought to the emergency department. Past Medical History: Depression, alcoholism, remote CVA, without deficits Past Surgical History: Reviewed and not pertinent to presentation Social History: Admits to alcohol use, and tobacco use, denies illicit drug use. Family History: Reviewed and noncontributory for presenting illness Allergies: Reviewed, see documented allergy list. REVIEW OF SYSTEMS: Unless otherwise stated in this report the patient's positive and negative responses for review of systems for constitutional, eyes, ENT, cardiovascular, respiratory, gastrointestinal, neurological, genitourinary, musculoskeletal, and integumentary systems and related systems to the presenting problem are either as stated in the HPI or were not pertinent or were negative for the symptoms and/or complaints related to the presenting medical problem. PHYSICAL EXAMINATION: Vital signs reviewed, nursing noted reviewed. GENERAL: Well-appearing, well-nourished and in no acute distress. HEAD: Atraumatic, normocephalic. EYES: Eyes appear normal, extraocular movements intact, sclera anicteric, conjunctiva are normal. ENT: nares patent, oropharynx clear without exudates. Moist mucous membranes. NECK: Normal range of motion, supple without lymphadenopathy LUNGS: Breath sounds clear to auscultation bilaterally and equal. No wheezes rales or rhonchi. HEART: Regular rate and rhythm without murmurs ABDOMEN: Soft, nontender, normoactive bowel sounds. No rebound, guarding, or rigidity. No masses appreciated. Back: There is tenderness with palpation to the lumbar spine midline, without deformity or step-offs, there is mild bilateral paraspinal tenderness as well. Range of motion is within normal limits of the thoracic and lumbar spine. EXTREMITIES: Right wrist is tender to palpation, and pain with range of motion of the right wrist, sensation intact distally in the right hand, palpable pulses , cap refill is less than 3 seconds, the rest of the patient's extremity exam is grossly unremarkable. No pitting or edema. NEUROLOGICAL: No focal neurological deficits. Moves all extremities spontaneously Motor and sensory grossly intact on exam. PSYCH: Normal mood, normal affect. SKIN: Warm, Dry, normal turgor, multiple skin tears and abrasions, that are in varying degrees of healing in the patient's lower extremities TRAVEL OUTSIDE OF THE [place] IN LAST 30 DAYS: No - Related Data Allergies/Adverse Reactions: No Known Allergies Allergy (Verified 04/15/18 14:11) Past Medical History - Social History Smoking Status: Current Every Day Smoker Family History: Reviewed & Not Pertinent Neurological Medical History: Reports: Hx Cerebrovascular Accident. Denies: Hx Seizures Endocrine Medical History: Denies: Hx Diabetes Mellitus Type 1 Renal/ Medical History: Denies: Hx Peritoneal Dialysis Psychiatric Medical History: Reports: Hx Depression - Does not take medication. Ongoing - Immunizations Immunizations up to date: Yes Hx Diphtheria, Pertussis, Tetanus Vaccination: Yes Physical Exam - Vital signs Vitals: Temp Resp BP Pulse Ox 98.2 F 18 139/83 H 97 04/16/18 18:46 04/16/18 18:46 04/16/18 18:46 04/16/18 18:46 Course - Re-evaluation Re-evalutation: Patient seen and examined vital signs reviewed. Imaging were ordered as appropriate for the patient's presenting symptoms and complaint, with consideration of any critical or life threatening conditions that may be associated with their obtained history and exam as noted above. Patient was treated with Toradol for pain Results were reviewed when available and demonstrated right distal radius fracture. The patient was re-evaluated and was improved Evaluation was most consistent with right wrist fracture from a few days ago, that was seen on prior x-rays, splint was reapplied patient was encouraged to continue wearing the splint Results were discussed with the patient at this point, after careful consideration I feel that that patient can be discharged from the emergency department, the patient was educated treatments and reasons to return to the emergency department based on their presumed diagnosis as noted above, they were advised to followup with a primary care physician in 2-3 days. Patient was agreeable to plan of care. *Note is created using voice recognition software and may contain spelling, syntax or grammatical errors. Lumbar Spine X-Ray 04/16/18 18:51 IMPRESSION: Mild degenerative disc changes with facet arthropathy. No acute findings. Wrist X-Ray 04/16/18 18:51 IMPRESSION: Oblique nondisplaced fracture of the radial styloid. - Vital Signs Vital signs: Temp Pulse Resp BP Pulse Ox 98.2 F 18 139/83 H 97 04/16/18 18:46 04/16/18 18:46 04/16/18 18:46 04/16/18 18:46 - Diagnostic Test Radiology reviewed: Image reviewed Radiology results interpreted by me: 04/16/18 20:09 Right intra-articular distal radius fracture, lumbar spine appears unremarkable , no acute bony injury or abnormality. Procedures - Immobilization Right Wrist Pre-Proc Neuro Vasc Exam: Normal Immobilizer type: Sugar tong, Sling Performed by: PCT Post-Proc Neuro Vasc Exam: Normal Alignment checked and good: Yes Notes: Patient tolerated well, no complications Discharge - Discharge Clinical Impression: Distal radius fracture, right Qualifiers: Encounter type: initial encounter Fracture type: closed Fracture morphology: other fracture Qualified Code(s): S52.591A - Other fractures of lower end of right radius, initial encounter for closed fracture Back pain Qualifiers: Back pain location: low back pain Chronicity: chronic Back pain laterality: unspecified Sciatica presence: without sciatica Qualified Code(s): M54.5 - Low back pain Condition: Stable Disposition: HOME, SELF-CARE Instructions: Fractured Radius ([facility]), Ice Packs ([facility]), Low Back Pain ([facility]) Additional Instructions: Please keep the splint in place and follow-up with orthopedic surgery, call for appointment tomorrow. Prescriptions: Naproxen 500 mg PO Q12H PRN #30 tablet PRN Reason: wrist pain Referrals: MARISOL CERDA MD [ACTIVE STAFF] - Follow up tomorrow
[2018-04-16] MEDS ORDERED: KETOROLAC TROMETHAMINE 60 MG/2 ML SDV IM ONE (18:52)
--- NOTE | 2018-04-16 20:25 | RADIOLOGY REPORT (SQ) ---
EXAM DESCRIPTION: L SPINE WHOLE COMPLETED DATE/TIME: 04/16/2018 7:42 pm REASON FOR STUDY: low back pain, injury COMPARISON: None. NUMBER OF VIEWS: Five views including obliques. TECHNIQUE: AP, lateral, oblique, and sacral radiographic images acquired of the lumbar spine. LIMITATIONS: None. FINDINGS: MINERALIZATION: Normal. SEGMENTATION: Normal. No transitional anatomy. ALIGNMENT: Minimal scoliosis. VERTEBRAE: Maintained height. No fracture or worrisome bone lesion. DISCS: Disc spaces are narrowed from C3-S1. POSTERIOR ELEMENTS: Hypertrophic facet changes of from C3-S1. HARDWARE: None in the spine. PARASPINAL SOFT TISSUES: Normal. PELVIS: Intact as visualized. No fractures or worrisome bone lesions. SI joints intact. OTHER: No other significant finding. IMPRESSION: Mild degenerative disc changes with facet arthropathy. No acute findings. TECHNICAL DOCUMENTATION: JOB ID: [id number] [employer]- All Rights Reserved Reading location - IP/workstation name: [email or web address]
--- NOTE | 2018-04-16 20:26 | RADIOLOGY REPORT (SQ) ---
EXAM DESCRIPTION: WRIST RIGHT 3 VIEWS COMPLETED DATE/TIME: 04/16/2018 7:42 pm REASON FOR STUDY: right wrist pain, injury COMPARISON: None. NUMBER OF VIEWS: Three views. TECHNIQUE: AP, lateral, and oblique radiographic images acquired of the right wrist. LIMITATIONS: None. FINDINGS: MINERALIZATION: Normal. BONES: There appears to be an oblique nondisplaced fracture of the radial styloid. SOFT TISSUES: No soft tissue swelling. No foreign body. OTHER: No other significant finding. IMPRESSION: Oblique nondisplaced fracture of the radial styloid. TECHNICAL DOCUMENTATION: JOB ID: [id number] [employer]- All Rights Reserved Reading location - IP/workstation name: [email or web address]
[2018-04-16 21:14] VITALS: BP 146/84
== END 2018-04-16 21:14 | disposition home or self-care (01) ==
LOC: ER 18:27
DX: S52.514A Nondisplaced fracture of right radial styloid process, initial encounter for closed fracture (principal); M25.531 Pain in right wrist; W19.XXXA Unspecified fall, initial encounter; M47.9 Spondylosis, unspecified; M54.5 Low back pain; M79.671 Pain in right foot; M79.672 Pain in left foot; F17.200 Nicotine dependence, unspecified, uncomplicated; Z59.0 Homelessness
CPT/HCPCS: 99284; 96372; 72110; 73110; 29125; J1885

== ENCOUNTER 2018-05-01 18:39 | Emergency (ER) | payer MEDICARE ==
--- NOTE | 2018-05-01 19:41 | ER Document Report ---
ED Medical Screen (RME) - General Chief Complaint: Abdominal Pain Stated Complaint: ABDOMINAL PAIN Time Seen by Provider: 05/01/18 19:39 Notes: 63 years old male, appears to be homeless, presents with left inguinal hernia over a month. States his been hurting for a month. When asked what was different within the last 24 hours, he says it is the same. Denies any nausea vomiting fever chills or other constitutional symptoms. Left inguinal reducible hernia was noted. TRAVEL OUTSIDE OF THE [place] IN LAST 30 DAYS: No - Related Data Allergies/Adverse Reactions: No Known Allergies Allergy (Verified 05/01/18 18:40) Past Medical History Neurological Medical History: Reports: Hx Cerebrovascular Accident. Denies: Hx Seizures Endocrine Medical History: Denies: Hx Diabetes Mellitus Type 1 Renal/ Medical History: Denies: Hx Peritoneal Dialysis Psychiatric Medical History: Reports: Hx Depression - Does not take medication. Ongoing - Immunizations Immunizations up to date: Yes Hx Diphtheria, Pertussis, Tetanus Vaccination: Yes History of Influenza Vaccine for 04/2017 - 09/2017 Season: Unknown Physical Exam - Vital signs Vitals: Temp Pulse Resp BP Pulse Ox 98.5 F 80 18 104/78 100 05/01/18 18:46 05/01/18 18:46 05/01/18 18:46 05/01/18 18:46 05/01/18 18:46 Course - Vital Signs Vital signs: Temp Pulse Resp BP Pulse Ox 98.5 F 80 18 104/78 100 05/01/18 18:46 05/01/18 18:46 05/01/18 18:46 05/01/18 18:46 05/01/18 18:46
--- NOTE | 2018-05-01 20:08 | ER Document Report ---
ED GI/ - General Chief Complaint: Abdominal Pain Stated Complaint: ABDOMINAL PAIN Time Seen by Provider: 05/01/18 19:39 Mode of Arrival: Ambulatory Information source: Patient Notes: Patient is a 63-year-old male comes emergency room complaining of left inguinal hernia pain. Patient states she has had the inguinal hernia for several years it acts up occasionally and is able to put it back in. He is states that in the last 24-48 hours it is come out and he has not been able to keep it in. He stated the pain is increasing daily and he is asking for us to evaluate and see if we can have it surgically fixed or at minimum control the pain. Patient admits to being homeless at this time he denies any other medical problems. Admits to drinking 3-4 beers every 3-4 days. And he also smokes a pack of cigarettes every 3-4 days. Currently takes no medications. TRAVEL OUTSIDE OF THE [place] IN LAST 30 DAYS: No - HPI Patient complains to provider of: Abdominal pain Onset: Other - Chronic with acute exacerbation past 3 days Timing/Duration: Gradual, Persistent, Worse Quality of pain: Cramping, Sharp, Throbbing Severity at maximum: Moderate Severity in ED: Moderate Pain Level: 3 Context: denies: Recent trauma Location: [facility] Adult Front & Back Diagram: 1 - Inguinal hernia Associated symptoms: None Exacerbated by: Sitting, Standing, Movement, Walking Relieved by: Supine, Other Similar symptoms previously: Yes Recently seen / treated by doctor: Yes - Related Data Allergies/Adverse Reactions: No Known Allergies Allergy (Verified 05/01/18 18:40) Past Medical History - General Information source: Patient - Social History Smoking Status: Current Every Day Smoker Cigarette use (# per day): Yes - 1 pack every 3 days Chew tobacco use (# tins/day): No Smoking Education Provided: Yes Frequency of alcohol use: Heavy Drug Abuse: None Lives with: Alone, Homeless Family History: Reviewed & Not Pertinent Patient has suicidal ideation: No Patient has homicidal ideation: No Neurological Medical History: Reports: Hx Cerebrovascular Accident. Denies: Hx Seizures Endocrine Medical History: Denies: Hx Diabetes Mellitus Type 1 Renal/ Medical History: Denies: Hx Peritoneal Dialysis Psychiatric Medical History: Reports: Hx Depression - Does not take medication. Ongoing - Immunizations Immunizations up to date: Yes Hx Diphtheria, Pertussis, Tetanus Vaccination: Yes Review of Systems - Review of Systems Constitutional: No symptoms reported EENT: No symptoms reported Cardiovascular: No symptoms reported Respiratory: No symptoms reported Gastrointestinal: See HPI, Abdominal pain Genitourinary: No symptoms reported Male Genitourinary: No symptoms reported Musculoskeletal: No symptoms reported Skin: No symptoms reported Hematologic/Lymphatic: No symptoms reported Neurological/Psychological: No symptoms reported -: Yes All other systems reviewed and negative Physical Exam - Vital signs Vitals: Temp Pulse Resp BP Pulse Ox 98.5 F 80 18 104/78 100 05/01/18 18:46 05/01/18 18:46 05/01/18 18:46 05/01/18 18:46 05/01/18 18:46 Interpretation: Hypotensive - Notes Notes: Patient is a 63-year-old male who is somewhat cachectic appearing and somewhat disheveled in appearance. He is in no apparent distress at this time and appears comfortable. - General General appearance: Alert In distress: None - HEENT Head: Normocephalic, Atraumatic Eyes: Normal Mucous membranes: Normal, Moist Pharynx: Normal. No: Blood in hypopharynx, Erythema, Exudate, Peritonsillar abscess, Post nasal drainage, Retropharyngeal abscess, Tonsillar hypertrophy, Uvular edema, Potential airway comprom. Neck: Normal, Supple. No: Anterior cervical chain, Posterior cervical chain, Lymphadenopathy, Meningismus, Neck mass, Shotty nodes, Subcutaneous emphysema, Thyroid nodule, Thyromegally - Respiratory Respiratory status: No respiratory distress Chest status: Nontender, Accessory muscle use Breath sounds: Normal. No: Rales, Rhonchi, Stridor, Wheezing Chest palpation: Normal - Cardiovascular Rhythm: Regular Heart sounds: Normal auscultation Murmur: No - Abdominal Inspection: Normal Distension: No distension Bowel sounds: Normal Tenderness: Tender, Other - Examination of patient's abdomen shows he has an exposed left inguinal hernia that is pushing out. There is no discoloration noted at this time but is very tender and sensitive to touch. Laying patient supine he was able to apply pressure on both sides in push the intestine back into the abdominal wall area. I felt that I have a slight pop as it entered through the defect. Patient had instant relief of pain and discomfort. Bowel sounds were noted prior to me reducing the hernia. There was good bowel sounds after reduction was done.. No: Nontender, McBurney's point, Dorado's sign, Guarding, Rebound - Back Back: Normal, Nontender. No: Tender, Deformity/step-off, Vertebra tenderness - Extremities General upper extremity: Normal inspection, Nontender, Normal strength, Normal temperature General lower extremity: Normal inspection, Nontender, Normal strength, Normal temperature - Neurological Neuro grossly intact: Yes Cognition: Normal Orientation: AAOx4 [place] Coma Scale Eye Opening: Spontaneous [place] Coma Scale Verbal: Oriented [place] Coma Scale Motor: Obeys Commands [place] Coma Scale Total: 15 Speech: Normal - Psychological Associated symptoms: Normal affect, Normal mood Course - Re-evaluation Re-evalutation: 05/01/18 20:13 During my physical exam patient informed me that he is homeless and that he is requesting any kind of help or aid that we may be able to offer. I discussed this with the charge nurse Katy through the [facility] and was informed that patient is well-known to the facility he is in here quite often and they have provided him with as much services as they have. The suggestion was at this time to put in for evaluation by discharge planning for tomorrow. At this point we are doing some labs which were ordered out front waiting on the results and if all is normal will discharge patient tonight. He is awake alert and he is oriented he is not obtunded by alcohol and is not show signs of withdrawal and I feel comfortable that if the labs are normal he can be discharged to where he goes on a regular basis. 05/01/18 21:31 Reevaluation of patient after receiving his labs and his acute abdominal series shows his labs to be normal and his acute abdominal series also shows no acute findings. Since reduction of his hernia at the start of my examination today he is improved. As stated he is homeless however I no alternative but to go ahead and discharge him at this time. States he does have some place to go and that he had been working on it since I had seen him at [facility]. So at this time I am going to discharge patient to his own recognizance. I have informed him that I put an order in for discharge planning and they can contact him tomorrow. - Vital Signs Vital signs: Temp Pulse Resp BP Pulse Ox 98.5 F 80 18 104/78 100 05/01/18 18:46 05/01/18 18:46 05/01/18 18:46 05/01/18 18:46 05/01/18 18:46 - Laboratory Result Diagrams: 05/01/18 20:12 05/01/18 20:12 Laboratory results interpreted by me: 05/01/18 05/01/18 20:12 20:12 RDW 14.9 H Sodium 132.4 L Chloride 95 L Glucose 126 H ALT 16 L Discharge - Discharge Clinical Impression: Inguinal hernia Qualifiers: Obstruction and gangrene presence: without obstruction or gangrene Laterality: unilateral Recurrence: non-recurrent Qualified Code(s): K40.90 - Unilateral inguinal hernia, without obstruction or gangrene, not specified as recurrent Condition: Stable Disposition: HOME, SELF-CARE Instructions: Abdominal Pain ([facility]), Hernia ([facility]) Additional Instructions: At this time we were successful at reducing your hernia. You have also informed me that you know reduce the hernia and most of the time can. At this time with the being reduced is okay to discharge home your labs are normal and your chest x-ray showed no obstruction. Highly suggest you follow-up with your primary care or the health department for following for you medical needs of anything. I have also put in a discharge planning orders and they may contact you to see if there is anything they can provide you. Forms: Smoking Cessation Education
[2018-05-01 20:26] LABS: ABSOLUTE EOSINOPHILS # (AUTO) 0.1 10^3/uL (0.0-0.6); ABSOLUTE LYMPHOCYTES (AUTO) 2.2 10^3/uL (0.5-4.7); ABSOLUTE MONOCYTES (AUTO) 0.8 10^3/uL (0.1-1.4); ABSOLUTE NEUT (AUTO) 4.1 10^3/uL (1.7-8.2); BASOPHILS % (AUTO) 0.7 % (0-2); EOSINOPHILS % (AUTO) 0.8 % (0-6); HEMATOCRIT 41.6 % (37.9-51.0); HEMOGLOBIN 14.3 g/dL (13.5-17.0); MEAN CORPUSCULAR HEMOGLOBIN 31.5 pg (27.0-33.4); MEAN CORPUSCULAR HGB CONC 34.3 g/dL (32.0-36.0); MEAN CORPUSCULAR VOLUME 92 fl (80-97); MONOCYTES % (AUTO) 11.3 % (3-13); PLATELET COUNT 407 10^3/uL (150-450); RED BLOOD COUNT 4.53 10^6/uL (4.35-5.55); RED CELL DISTRIBUTION WIDTH 14.9 % (11.5-14.0); SEGMENTED NEUTROPHILS % (AUTO) 57.2 % (42-78); TOTAL CELLS COUNTED % (AUTO) 100 %; WHITE BLOOD COUNT 7.2 10^3/uL (4.0-10.5)
[2018-05-01 20:34] LABS: ALANINE AMINOTRANSFERASE 16 U/L (21-72); ALBUMIN 3.6 g/dL (3.5-5.0); ALKALINE PHOSPHATASE 98 U/L (38-126); ANION GAP 12 (5-19); ASPARTATE AMINO TRANSFERASE 18 U/L (17-59); BILIRUBIN,DIRECT 0.2 mg/dL (0.0-0.4); BILIRUBIN,TOTAL 0.3 mg/dL (0.2-1.3); BLOOD UREA NITROGEN 9 mg/dL (7-20); CALCIUM 9.2 mg/dL (8.4-10.2); CARBON DIOXIDE 25 mmol/L (22-30); CHLORIDE 95 mmol/L (98-107); GLUCOSE 126 mg/dL (75-110); POTASSIUM 4.1 mmol/L (3.6-5.0); SODIUM 132.4 mmol/L (137-145); TOTAL PROTEIN 6.7 g/dL (6.3-8.2)
--- NOTE | 2018-05-01 20:47 | RADIOLOGY REPORT (SQ) ---
EXAM DESCRIPTION: ACUTE ABDOMEN SERIES COMPLETED DATE/TIME: 05/01/2018 8:31 pm REASON FOR STUDY: Abdominal pain, left inguinal hernia COMPARISON: None. NUMBER OF VIEWS: Three views. TECHNIQUE: Frontal chest, supine abdomen and upright/decubitus abdomen radiographic images acquired. LIMITATIONS: None. FINDINGS: CHEST: Lungs clear of infiltrates. FREE AIR: None. No abnormal gas collections. BOWEL GAS PATTERN: Nonobstructive pattern. No dilated loops or air fluid levels. CALCIFICATIONS: No suspicious calcifications. HARDWARE: None in the abdomen. SOFT TISSUES: No gross mass or suggestion of organomegaly. BONES: No acute fracture. No worrisome bone lesions. OTHER: No other significant finding. IMPRESSION: NO RADIOGRAPHIC EVIDENCE FOR ACUTE ABDOMINAL DISEASE. TECHNICAL DOCUMENTATION: JOB ID: [id number] [employer]- All Rights Reserved Reading location - IP/workstation name: [email or web address]
[2018-05-01 21:57] VITALS: BP 116/82
== END 2018-05-01 21:55 | disposition home or self-care (01) ==
LOC: ER 18:39
DX: K40.90 Unilateral inguinal hernia, without obstruction or gangrene, not specified as recurrent (principal); F17.210 Nicotine dependence, cigarettes, uncomplicated; Z59.0 Homelessness; Z86.73 Personal history of transient ischemic attack (TIA), and cerebral infarction without residual deficits
CPT/HCPCS: 36415; 74022; 80053; 85025; 99284

== ENCOUNTER 2018-05-02 19:31 | Emergency (ER) | payer MEDICARE ==
--- NOTE | 2018-05-02 21:07 | ER Document Report ---
ED Medical Screen (RME) - General Chief Complaint: Leg Pain Stated Complaint: LEG PAIN Time Seen by Provider: 05/02/18 21:04 Mode of Arrival: Medic Information source: Patient Notes: Patient presents emergency department with reports that he is here because he is aches and pains. He responds appropriately to all questions reports he knows he is at [facility]. Patient reports he fall fell but did not hit his head. Reports he fell a couple weeks ago and hit his head. Patient reports EtOH. Reports his asked hurts. Reports he is here because he is homeless. I have greeted and performed a rapid initial assessment of this patient. A comprehensive ED assessment and evaluation of the patient, analysis of test results and completion of the medical decision making process will be conducted by additional ED providers. TRAVEL OUTSIDE OF THE [place] IN LAST 30 DAYS: No - Related Data Allergies/Adverse Reactions: No Known Allergies Allergy (Verified 05/01/18 18:40) Past Medical History - Social History Frequency of alcohol use: Heavy Neurological Medical History: Reports: Hx Cerebrovascular Accident. Denies: Hx Seizures Endocrine Medical History: Denies: Hx Diabetes Mellitus Type 1 Renal/ Medical History: Denies: Hx Peritoneal Dialysis Psychiatric Medical History: Reports: Hx Depression - Does not take medication. Ongoing - Immunizations Immunizations up to date: Yes Hx Diphtheria, Pertussis, Tetanus Vaccination: Yes History of Influenza Vaccine for 04/2017 - 09/2017 Season: Unknown Physical Exam - Vital signs Vitals: Temp Pulse Resp BP Pulse Ox 97.8 F 72 18 100/69 99 05/02/18 19:47 05/02/18 19:47 05/02/18 19:47 05/02/18 19:47 05/02/18 19:47 Course - Vital Signs Vital signs: Temp Pulse Resp BP Pulse Ox 97.8 F 72 18 100/69 99 05/02/18 19:47 05/02/18 19:47 05/02/18 19:47 05/02/18 19:47 05/02/18 19:47
--- NOTE | 2018-05-02 22:16 | ER Document Report ---
ED General - General Chief Complaint: Leg Pain Stated Complaint: LEG PAIN Time Seen by Provider: 05/02/18 21:04 Mode of Arrival: Medic Notes: Patient presents by EMS with multiple complaints. He states that he has diffuse body aches, is "sore all over" but eventually admits to me that the main reason he is here is because it is cold outside and that he is homeless. He does admit to ongoing chronic alcohol abuse and frequent falls. He denies any new fall today. Denies any recent head or neck trauma. This is contrary to triage assessment in which he apparently did complain of a recent head trauma. Patient is clinically sober at the time of my assessment, provides a cogent history. States that he is not currently collecting Social Security benefits and that he is a . Patient otherwise denies any acute medical complaints. He denies anything improves or worsens his symptoms. He has frequent visits to the emergency department for similar symptoms. TRAVEL OUTSIDE OF THE [place] IN LAST 30 DAYS: No - Related Data Allergies/Adverse Reactions: No Known Allergies Allergy (Verified 05/01/18 18:40) Past Medical History - General Information source: Patient - Social History Smoking Status: Current Some Day Smoker Frequency of alcohol use: Heavy Drug Abuse: None Lives with: Homeless Family History: Reviewed & Not Pertinent Patient has suicidal ideation: No Patient has homicidal ideation: No Neurological Medical History: Reports: Hx Cerebrovascular Accident. Denies: Hx Seizures Endocrine Medical History: Denies: Hx Diabetes Mellitus Type 1 Renal/ Medical History: Denies: Hx Peritoneal Dialysis Psychiatric Medical History: Reports: Hx Depression - Does not take medication. Ongoing - Immunizations Immunizations up to date: Yes Hx Diphtheria, Pertussis, Tetanus Vaccination: Yes Review of Systems - Review of Systems Notes: Constitutional: Negative for fever. Positive for general body aches HENT: Negative for sore throat. Eyes: Negative for visual changes. Cardiovascular: Negative for chest pain. Respiratory: Negative for shortness of breath. Gastrointestinal: Negative for abdominal pain, vomiting or diarrhea. Genitourinary: Negative for dysuria. Musculoskeletal: Negative for back pain. Skin: Negative for rash. Neurological: Negative for headaches, weakness or numbness. 10 point ROS negative except as marked above and in HPI. Physical Exam - Vital signs Vitals: Temp Pulse Resp BP Pulse Ox 97.8 F 72 18 100/69 99 05/02/18 19:47 10/19/18 19:47 05/02/18 19:47 05/02/18 19:47 05/02/18 19:47 Notes: PHYSICAL EXAMINATION: GENERAL: Well-appearing, well-nourished and in no acute distress. HEAD: Atraumatic, normocephalic. EYES: Pupils equal round and reactive to light, extraocular movements intact, sclera anicteric, conjunctiva are normal. ENT: nares patent, oropharynx clear without exudates. Moist mucous membranes. NECK: Normal range of motion, supple without lymphadenopathy LUNGS: Breath sounds clear to auscultation bilaterally and equal. No wheezes rales or rhonchi. HEART: Regular rate and rhythm without murmurs ABDOMEN: Soft, nontender, normoactive bowel sounds. No guarding, no rebound. No masses appreciated. EXTREMITIES: Normal range of motion, no pitting or edema. No cyanosis. NEUROLOGICAL: No focal neurological deficits. Moves all extremities spontaneously and on command. PSYCH: Normal mood, normal affect. SKIN: Warm, Dry, normal turgor, no rashes or lesions noted. Course - Re-evaluation Re-evalutation: 05/02/18 22:12 Patient presents complaining of body aches, homelessness. He states that he is here effectively because he is homeless and it is cold outside. He denies any other acute medical complaints. Vitals are within normal limits at triage and at time of discharge. Physical examination is unremarkable. Patient has tolerated oral intake without difficulty. Patient was not noted to be in distress at any point during their ER visit. At this time, based on the reassuring evaluation, I do not suspect an acute [place], pulmonary embolus, aortic dissection, acute intra-abdominal pathology, stroke, or sepsis.Will discharge with return precautions and follow-up recommendations. Verbal discharge instructions given a the bedside and opportunity for questions given. I have also enlisted the services of our social media manager to assist the patient in getting into housing as he has both a and above 65 years of age qualifying him for Social Security which he states he is not currently collecting. - Vital Signs Vital signs: Temp Pulse Resp BP Pulse Ox 97.8 F 72 18 100/69 99 05/02/18 19:47 05/02/18 19:47 05/02/18 19:47 05/02/18 19:47 05/02/18 19:47 Discharge - Discharge Clinical Impression: Multiple complaints, Body aches, Homelessness, Alcohol abuse Condition: Good Disposition: HOME, SELF-CARE Additional Instructions: We have placed a consult with our social media manager to look into resources to help get you off the street. Your exam is otherwise normal today. Return for any additional concerns you may have.
[2018-05-02 22:19] VITALS: BP 116/68
== END 2018-05-02 22:20 | disposition home or self-care (01) ==
LOC: ER 19:31
DX: M79.606 Pain in leg, unspecified (principal); Z59.0 Homelessness; F10.10 Alcohol abuse, uncomplicated; R29.6 Repeated falls; F17.200 Nicotine dependence, unspecified, uncomplicated
CPT/HCPCS: 99283

== ENCOUNTER 2018-05-03 16:12 | Emergency (ER) | payer MEDICARE ==
--- NOTE | 2018-05-03 16:38 | ER Document Report ---
ED Medical Screen (RME) - General Chief Complaint: Fall Injury Stated Complaint: FALL,ARM PAIN Time Seen by Provider: 05/03/18 16:28 TRAVEL OUTSIDE OF THE [place] IN LAST 30 DAYS: No - HPI Notes: 05/03/18 16:37 Chronic EtOH or coming in the EMS for Fall. Patient has fresh abrasions to his left lower extremities left shoulder and to the left superior orbit. Patient otherwise denies any pain able to stand and ambulate in triage - Related Data Allergies/Adverse Reactions: No Known Allergies Allergy (Verified 05/01/18 18:40) Past Medical History Neurological Medical History: Reports: Hx Cerebrovascular Accident. Denies: Hx Seizures Endocrine Medical History: Denies: Hx Diabetes Mellitus Type 1 Renal/ Medical History: Denies: Hx Peritoneal Dialysis Psychiatric Medical History: Reports: Hx Depression - Does not take medication. Ongoing - Immunizations Immunizations up to date: Yes Hx Diphtheria, Pertussis, Tetanus Vaccination: Yes History of Influenza Vaccine for 04/2017 - 09/2017 Season: Unknown Review of Systems - Review of Systems Constitutional: Other - Abrasions Physical Exam - Vital signs Vitals: Temp Pulse Resp BP Pulse Ox 97.8 F 78 16 120/72 100 05/03/18 16:22 05/03/18 16:22 05/03/18 16:22 05/03/18 16:22 05/03/18 16:22 - Respiratory Respiratory status: No respiratory distress Chest status: Nontender Breath sounds: Normal Chest palpation: Normal - Cardiovascular Rhythm: Regular Heart sounds: Normal auscultation Course - Vital Signs Vital signs: Temp Pulse Resp BP Pulse Ox 97.8 F 78 16 120/72 100 05/03/18 16:22 05/03/18 16:22 05/03/18 16:22 05/03/18 16:22 05/03/18 16:22
--- NOTE | 2018-05-03 17:13 | RADIOLOGY REPORT (SQ) ---
EXAM DESCRIPTION: CT HEAD WITHOUT COMPLETED DATE/TIME: 05/03/2018 4:51 pm REASON FOR STUDY: fall COMPARISON: Noncontrast head CTs dated 04/14/2018, 04/13/2018, 02/27/2018 TECHNIQUE: Axial images acquired through the brain without intravenous contrast. Images reviewed wi th bone, brain and subdural windows. Images stored on PACS. All CT scanners at this facility use dose modulation, iterative reconstruction, and/or weight based d osing when appropriate to reduce radiation dose to as low as reasonably achievable (ALARA). [facility]: Dose Right [facility]: CareDose [facility]: Dose Right [facility]: Teradose 4D [facility]: Smart [employer] RADIATION DOSE: CT Rad equipment meets quality standard of care and radiation dose reduction techniq ues were employed. CTDIvol: 53.2 mGy. DLP: 1017 mGy-cm. mGy. LIMITATIONS: None. FINDINGS: VENTRICLES: Stably prominent. CEREBRUM: No masses. No hemorrhage. No midline shift. Lacunar infarct right caudate. Subtle addit ional areas of low density in the white matter most likely due to chronic micro-vascular ischemic gila nge. No evidence for acute infarction. CEREBELLUM: No masses. No hemorrhage. No alteration of density. No evidence for acute infarction. EXTRAAXIAL SPACES: Mild age-related involutional change. No fluid collections. No masses. ORBITS AND GLOBE: No intra- or extraconal masses. Normal contour of globe without masses. CALVARIUM: No fracture. Stable surgical changes of the left calvarium. PARANASAL SINUSES: No fluid or mucosal thickening. SOFT TISSUES: No mass or hematoma. OTHER: No other significant finding. IMPRESSION: Stable CT appearance of the brain. No evidence of calvarial injury or intracranial hemo rrhage. EVIDENCE OF ACUTE STROKE: NO. TECHNICAL DOCUMENTATION: JOB ID: [id number] Quality ID # [id number]: Final reports with documentation of one or more dose reduction techniques (e.g., Au tomated exposure control, adjustment of the mA and/or kV according to patient size, use of iterative reconstruction technique) 2010 [employer]- All Rights Reserved Reading location - IP/workstation name: [email or web address]
--- NOTE | 2018-05-03 17:13 | ER Document Report ---
HPI - HPI Pain Level: 3 Notes: Patient is a 63-year-old male with a history of chronic alcohol abuse who is well-known to the emergency department who presents to the ED status post fall with skin abrasions for evaluation brought by EMS. Patient states that he lost his footing and fell on the pavement causing abrasions to his left leg, left shoulder and a small area to his left eyebrow. Patient states that he falls relatively frequent which is not uncommon for him. He denies any drug allergies. Patient is unsure of his last tetanus, but he has been to the emergency department multiple times over the last few months so we will review his record. Patient states that he did not hit his head very hard and did not lose consciousness. No other concerns or complaints. Patient does admit to drinking alcohol today. Denies any headache, fever, neck pain, changes in vision/speech/mentation/hearing, URI, sore throat, chest pain, palpitations, syncope, cough, shortness of breath, wheeze, dyspnea, abdominal pain, nausea/ vomiting/diarrhea, urinary retention, dysuria, hematuria, loss of control of bowel or bladder, numbness/tingling, saddle anesthesia, muscle paralysis/ weakness, or rash. - ROS Systems Reviewed and Negative: Yes All other systems reviewed and negative Past Medical History - Social History Smoking Status: Current Every Day Smoker Chew tobacco use (# tins/day): No Frequency of alcohol use: Heavy Drug Abuse: None Family History: Reviewed & Not Pertinent Patient has suicidal ideation: No Patient has homicidal ideation: No Neurological Medical History: Reports: Hx Cerebrovascular Accident. Denies: Hx Seizures Endocrine Medical History: Denies: Hx Diabetes Mellitus Type 1 Renal/ Medical History: Denies: Hx Peritoneal Dialysis Psychiatric Medical History: Reports: Hx Depression - Does not take medication. Ongoing - Immunizations Immunizations up to date: Yes Hx Diphtheria, Pertussis, Tetanus Vaccination: Yes Vertical Provider Document - CONSTITUTIONAL Agree With Documented VS: Yes Notes: PHYSICAL EXAMINATION: GENERAL: Well-appearing, well-nourished and in no acute distress. A&Ox3. Answers questions appropriately. ETOH odor noted. HEAD: Atraumatic, normocephalic. Non-tender. No cisneros sign EYES: Pupils equal round and reactive to light, extraocular movements intact, sclera anicteric, conjunctiva are normal. No raccoon eyes/entrapment. No obvious nystagmus. ENT: EAC clear b/l. TM's intact b/l without erythema, fluid, or perforation. Nares patent and without discharge. oropharynx clear without exudates. No tonsilar hypertrophy or erythema. Moist mucous membranes. No sinus tenderness. No hemotympanum/CSF discharge. Face: no bony tenderness or step-offs. There is a very small skin abrasion to the left eyebrow. No active bleeding. NECK: Normal range of motion, supple without lymphadenopathy. No rigidity. No midline tenderness. Chest: No flail chest. equal rise/fall. Non-tender LUNGS: Breath sounds clear to auscultation bilaterally and equal. No wheezes rales or rhonchi. HEART: Regular rate and rhythm without murmurs, rubs, gallops. ABDOMEN: Soft, nontender, nondistended abdomen. No guarding, no rebound. No masses appreciated. Normal bowel sounds present. No CVA tenderness bilaterally. No ecchymosis. Musculoskeletal: Ext's b/l: FROM to passive/active. Strength 5+/5. No deficits noted. No bony tenderness of extremities. Back: FROM to passive/active. Strength 5+/5. No vertebral point tenderness, stepoffs, or deformities. No other bony tenderness or ecchymosis. Extremities: No cyanosis, clubbing, or edema b/l. Peripheral pulses 2+. Capillary refill less than 2 seconds. NEUROLOGICAL: NIH 0. GCS 15. Cranial nerves grossly intact. Normal speech. Normal sensory, motor exams. Reflexes 2+ b/l. JOSIE's negative. Pronator drift negative. Heel/moreira, finger/nose wnl. PSYCH: Normal mood, normal affect. SKIN: there is an abrasion to the left lower anterior leg, left lateral knee, and left shoulder superiorly. No lacerations. - INFECTION CONTROL TRAVEL OUTSIDE OF THE [place] IN LAST 30 DAYS: No Course - Re-evaluation Re-evalutation: 05/03/18 17:13 Imaging pending. Tetanus UTD per note earlier this month. Wound care ordered. 05/03/18 19:33 Patient is an afebrile, well-hydrated, 63-year-old alcoholic male who presents to the ED with skin abrasions status post fall. Vitals are acceptable without any significant tachycardia, tachypnea, or hypoxia. PE is otherwise unremarkable for any focal neurological deficits, neurovascular compromise, obvious tendon/ligament rupture, obvious fracture/dislocation. Patient is nontoxic-appearing and is tolerating p.o. without difficulties. CT scan of the head and cervical spine were unremarkable for any acute pathology. Wounds were thoroughly irrigated and cleansed and wound dressing were applied. Patient is able to ambulate straight line without falling over and is speaking in clear sentences. Pt walking to and from the bathroom and around the halls. Patient appears to be able to make decisions for himself at this time. Patient is homeless and has received multiple informative packets from us over the course of his visits here in the emergency department. Low suspicion for any acute glaucoma, temporal arteritis, meningitis, intracranial hemorrhage, ischemic stroke, or fracture at this time. Patient is aware that his condition can change from initial presentation and that he needs to monitor symptoms closely for any acute changes. Conservative measures for symptoms. Recheck with your PCM in 3-5 days. Consider consult orthopedics. Return to the ED with any worsening/concerning symptoms otherwise as reviewed discharge. Patient is in agreement. - Vital Signs Vital signs: Temp Pulse Resp BP Pulse Ox 97.8 F 78 16 120/72 100 05/03/18 16:22 05/03/18 16:22 05/03/18 16:22 05/03/18 16:22 05/03/18 16:22 Discharge - Discharge Clinical Impression: Abrasions of multiple sites Condition: Stable Disposition: HOME, SELF-CARE Additional Instructions: Keep the skin clean Triple antibiotic ointment and wound dressing as reviewed Maintain adequate fluid and food intake Healthy diet Avoid alcohol and consider a detox facility Motrin as needed Monitor for any worsening symptoms Make sure you are staying hydrated enough to urinate and have normal BM's Recheck with your PCM in 3-5 days Return to the ED with any worsening symptoms and/or development of fever, headache, changes in behavior/mentation/vision/speech, chest pain, palpitations , syncope, shortness of breath, trouble breathing, abdominal pain, n/v/d, blood in stool/urine, loss of control of bowel/bladder, urinary retention, muscle weakness/paralysis, saddle anesthesia, numbness/tingling, red streaks, purulent discharge, abscess, or other worsening symptoms that are concerning to you. Forms: Smoking Cessation Education Referrals: [facility] [Provider Group] - Follow up in 3-5 days
--- NOTE | 2018-05-03 17:42 | RADIOLOGY REPORT (SQ) ---
EXAM DESCRIPTION: CT CERVICAL SPINE WITHOUT COMPLETED DATE/TIME: 05/03/2018 5:15 pm REASON FOR STUDY: etoh, fall COMPARISON: 04/14/2018, 02/27/2018 CT cervical spine TECHNIQUE: Axial images acquired through the cervical spine without intravenous contrast. Images re viewed with lung, soft tissue and bone windows. Reconstructed coronal and sagittal MPR images review ed. Images stored on PACS. All CT scanners at this facility use dose modulation, iterative reconstruction, and/or weight based d osing when appropriate to reduce radiation dose to as low as reasonably achievable (ALARA). [facility]: Dose Right [facility]: CareDose [facility]: Dose Right [facility]: Teradose 4D [facility]: Smart Tiltap RADIATION DOSE: CT Rad equipment meets quality standard of care and radiation dose reduction techniq ues were employed. CTDIvol: 11.5 - 24.1 mGy. DLP: 778 mGy-cm. mGy. LIMITATIONS: None. FINDINGS: ALIGNMENT: Anatomic. MINERALIZATION: Normal. VERTEBRAL BODIES: No fractures or dislocation. DISCS: No significant disc disease. FACETS, LATERAL MASSES, POSTERIOR ELEMENTS: No fractures. No dislocation. No acute findings. HARDWARE: None in the spine. VISUALIZED RIBS: No fractures. LUNG APICES AND SOFT TISSUES: No significant or acute findings. OTHER: No other significant finding. IMPRESSION: NO ACUTE OR SIGNIFICANT FINDINGS IN THE CERVICAL SPINE. TECHNICAL DOCUMENTATION: JOB ID: [id number] Quality ID # [id number]: Final reports with documentation of one or more dose reduction techniques (e.g., Au tomated exposure control, adjustment of the mA and/or kV according to patient size, use of iterative reconstruction technique) 2010 [employer]- All Rights Reserved Reading location - IP/workstation name: [email or web address]
[2018-05-03 20:00] VITALS: BP 119/64
== END 2018-05-03 20:03 | disposition home or self-care (01) ==
LOC: ER 16:12
DX: S80.812A Abrasion, left lower leg, initial encounter (principal); S40.212A Abrasion of left shoulder, initial encounter; S00.212A Abrasion of left eyelid and periocular area, initial encounter; F10.10 Alcohol abuse, uncomplicated; W01.0XXA Fall on same level from slipping, tripping and stumbling without subsequent striking against object, initial encounter; F17.200 Nicotine dependence, unspecified, uncomplicated; Z86.73 Personal history of transient ischemic attack (TIA), and cerebral infarction without residual deficits; Z59.0 Homelessness
CPT/HCPCS: 70450; 72125; 99284

== ENCOUNTER 2018-05-04 02:09 | Emergency (ER) | payer MEDICARE ==
--- NOTE | 2018-05-04 02:20 | ER Document Report ---
ED GI/ - General Stated Complaint: ETOH Time Seen by Provider: 05/04/18 02:11 Mode of Arrival: Ambulatory Information source: Patient TRAVEL OUTSIDE OF THE [place] IN LAST 30 DAYS: No - HPI Patient complains to provider of: Groin pain Onset: This evening Timing/Duration: Gradual, Intermittent Quality of pain: Achy, Fullness, Pressure Severity at maximum: Moderate Severity in ED: Moderate Pain Level: 3 Location: Other - Left groin Associated symptoms: None Exacerbated by: Denies Relieved by: Denies Similar symptoms previously: Yes Recently seen / treated by doctor: Yes Notes: 05/04/18 02:21 Patient is a 63-year-old male presenting the emergency room today complaining of painful swelling in his left groin consistent with a hernia that he has had for many years, reports that it is bulging and painful more than usual today and he is unable to reduce it on his own, patient is well-known to this emergency department with several previous visits for similar complaints as well as chronic alcoholism, he does admit to "drinking lately", he has not followed up with a surgeon for reevaluation, he reports having normal bowel movements, passing gas okay, no vomiting or nausea, no fevers, he does report his urine stream is slow but that has been going on for quite some time as well - Related Data Allergies/Adverse Reactions: No Known Allergies Allergy (Verified 05/01/18 18:40) Past Medical History - General Information source: Patient - Social History Smoking Status: Unknown if Ever Smoked Family History: Reviewed & Not Pertinent Neurological Medical History: Reports: Hx Cerebrovascular Accident. Denies: Hx Seizures Endocrine Medical History: Denies: Hx Diabetes Mellitus Type 1 Renal/ Medical History: Denies: Hx Peritoneal Dialysis Psychiatric Medical History: Reports: Hx Depression - Does not take medication. Ongoing - Immunizations Immunizations up to date: Yes Hx Diphtheria, Pertussis, Tetanus Vaccination: Yes Review of Systems - Review of Systems Constitutional: No symptoms reported EENT: No symptoms reported Cardiovascular: No symptoms reported Respiratory: No symptoms reported Gastrointestinal: See HPI Genitourinary: No symptoms reported Male Genitourinary: No symptoms reported Musculoskeletal: No symptoms reported Skin: No symptoms reported Hematologic/Lymphatic: No symptoms reported Neurological/Psychological: No symptoms reported -: Yes All other systems reviewed and negative Physical Exam - Vital signs Interpretation: Normal - General General appearance: Appears well, Alert In distress: None Notes: Disheveled appearing, EtOH on breath - HEENT Head: Normocephalic, Atraumatic Eyes: Normal Pupils: PERRL - Respiratory Respiratory status: No respiratory distress Chest status: Nontender Breath sounds: Normal Chest palpation: Normal - Cardiovascular Rhythm: Regular Heart sounds: Normal auscultation Murmur: No - Abdominal Inspection: Normal Distension: No distension Bowel sounds: Normal Tenderness: Tender - Tender to palpate in left groin area with swelling consistent with left inguinal hernia Organomegaly: No organomegaly - Back Back: Normal, Nontender - Extremities General upper extremity: Normal inspection, Nontender, Normal color, Normal ROM , Normal temperature General lower extremity: Normal inspection, Nontender, Normal color, Normal ROM , Normal temperature, Normal weight bearing. No: Fani's sign - Neurological Neuro grossly intact: Yes Cognition: Normal Orientation: AAOx4 [place] Coma Scale Eye Opening: Spontaneous [place] Coma Scale Verbal: Oriented [place] Coma Scale Motor: Obeys Commands [place] Coma Scale Total: 15 Speech: Normal Motor strength normal: LUE, RUE, LLE, RLE Sensory: Normal - Psychological Associated symptoms: Normal affect, Normal mood - Skin Skin Temperature: Warm Skin Moisture: Dry Skin Color: Normal Course - Re-evaluation Re-evalutation: 05/04/18 02:23 Left inguinal hernia was easily reduced with gentle pressure for approximately 10 seconds, patient reports immediate relief of pain, it is noted that patient has been in this emergency room several times for this complaint and his hernia is usually very easily, patient was advised to follow-up with surgery as an outpatient, discontinue alcohol abuse, follow-up with primary care or return if symptoms worsen, patient was able to ambulate with steady gait in the emergency department prior to discharge, patient acknowledges understanding and agreement with this plan Discharge - Discharge Clinical Impression: Alcohol abuse Inguinal hernia Qualifiers: Obstruction and gangrene presence: without obstruction or gangrene Laterality: unilateral Recurrence: recurrent Qualified Code(s): K40.91 - Unilateral inguinal hernia, without obstruction or gangrene, recurrent Condition: Stable Disposition: HOME, SELF-CARE Instructions: Chronic Alcoholism ([facility]), Hernia ([facility]) Additional Instructions: Follow-up with surgery in 2-3 days for evaluation of possible surgical need to repair your inguinal hernia. Return to the emergency room immediately if symptoms worsen or any additional concerns. Referrals: BAO MCKEON MD [ACTIVE STAFF] - Follow up as needed
[2018-05-04 02:30] VITALS: BP 129/75
== END 2018-05-04 02:44 | disposition home or self-care (01) ==
LOC: ER 02:09
DX: K40.91 Unilateral inguinal hernia, without obstruction or gangrene, recurrent (principal); F10.10 Alcohol abuse, uncomplicated; R10.30 Lower abdominal pain, unspecified; R19.09 Other intra-abdominal and pelvic swelling, mass and lump
CPT/HCPCS: 99284

== ENCOUNTER 2018-09-09 10:16 | Emergency (ER) | payer MEDICARE ==
[2018-09-09 14:44] VITALS: BP 127/65
--- NOTE | 2018-09-09 14:47 | ER Document Report ---
ED General - General Chief Complaint: Alcohol Withdrawl Stated Complaint: ABDOMINAL PAIN Time Seen by Provider: 09/09/18 10:47 Notes: Patient is a 63-year-old male presents to the emergency department Via [facility] Department for public intoxication. Apparently PD found the patient publicly intoxicated and when they attempted to speak to him he stated he had abdominal pain which is why they brought him to the emergency room. Patient initially was denying any complaints. States he has an extensive history of an abdominal hernia and has chronic back pain. Patient was initially sleeping, easily arousable to painful stimuli. Patient not cooperative and unwilling to get up out of the bed. Patient does have some superficial skin tears noted to the patient's right elbow. Otherwise he is atraumatic. Past medical history: Patient reports chronic back pain and abdominal hernia no other complaints Medications: Patient denies Allergies: Patient denies TRAVEL OUTSIDE OF THE [place] IN LAST 30 DAYS: No - Related Data Allergies/Adverse Reactions: No Known Allergies Allergy (Verified 05/01/18 18:40) Past Medical History - General Information source: Patient - Social History Smoking Status: Current Some Day Smoker Chew tobacco use (# tins/day): No Frequency of alcohol use: Heavy Drug Abuse: None Family History: Reviewed & Not Pertinent Patient has suicidal ideation: No Patient has homicidal ideation: No Neurological Medical History: Reports: Hx Cerebrovascular Accident. Denies: Hx Seizures Endocrine Medical History: Denies: Hx Diabetes Mellitus Type 1 Renal/ Medical History: Denies: Hx Peritoneal Dialysis Psychiatric Medical History: Reports: Hx Depression - Does not take medication. Ongoing - Immunizations Immunizations up to date: Yes Hx Diphtheria, Pertussis, Tetanus Vaccination: Yes Review of Systems - Review of Systems Constitutional: No symptoms reported EENT: No symptoms reported Cardiovascular: No symptoms reported Respiratory: No symptoms reported Gastrointestinal: See HPI Genitourinary: No symptoms reported Male Genitourinary: No symptoms reported Musculoskeletal: See HPI Skin: See HPI Hematologic/Lymphatic: No symptoms reported Neurological/Psychological: See HPI Physical Exam - Vital signs Vitals: Temp Pulse BP Pulse Ox 97.2 F 88 128/80 H 100 09/09/18 10:20 09/09/18 10:20 09/09/18 10:20 09/09/18 10:20 - Notes Notes: GENERAL: Initially sleeping, arousable to painful stimuli and then alert, No acute distress. HEAD: Normocephalic, atraumatic. EYES: Pupils equal, round, and reactive to light. Extraocular movements intact. ENT: Oral mucosa moist, tongue midline. Nares patent, no nasal septal hematoma, TM's intact, No hemotympanum noted bilaterally NECK: Full range of motion. Supple. Trachea midline. LUNGS: Clear to auscultation bilaterally, no wheezes, rales, or rhonchi. No respiratory distress. HEART: Regular rate and rhythm. No murmur ABDOMEN: Soft, non-tender. Non-distended. Bowel sounds present in all 4 quadrants. EXTREMITIES: Moves all 4 extremities spontaneously. No edema, normal radial and dorsalis pedis pulses bilaterally. No cyanosis. BACK: no cervical, thoracic, lumbar midline tenderness. No saddle anesthesia, normal distal neurovascular exam. NEUROLOGICAL: Alert and oriented x3. Normal speech. cranial nerves II through XII grossly intact. PSYCH: Normal affect, normal mood. SKIN: Warm, dry, normal turgor. Superficial what appears to be old skin the tear noted to the right elbow. Course - Re-evaluation Re-evalutation: 09/09/18 14:47 Patient was initially only arousable on deep painful stimuli. He was conscious alert and oriented x4 upon arousal but then would easily fall back asleep. Patient smells heavily of EtOH. 09/09/18 14:48 Patient is well-known to the emergency department for his alcohol intoxication, he is now clinically sober and requesting Tylenol for his chronic back pain. Patient is currently denying all complaints and is stable for discharge. - Vital Signs Vital signs: Temp Pulse Resp BP Pulse Ox 97.5 F 94 127/65 H 98 09/09/18 14:43 09/09/18 14:43 09/09/18 14:43 09/09/18 14:43 Discharge - Discharge Clinical Impression: ETOH abuse Condition: Stable Disposition: HOME, SELF-CARE Instructions: Acute Alcohol Intoxication ([facility]), Chronic Alcoholism ([facility]) Additional Instructions: As we discussed you have been seen and treated in the emergency department for your alcohol intoxication. Please make sure you follow-up with your primary care provider in the next 24-48 hours and return to the emergency room immediately should he have any other concerning symptoms
[2018-09-09] MEDS ORDERED: ACETAMINOPHEN 325 MG TABLET PO ONE (14:50)
== END 2018-09-09 15:12 | disposition home or self-care (01) ==
LOC: ER 10:16
DX: F10.129 Alcohol abuse with intoxication, unspecified (principal); R10.9 Unspecified abdominal pain; F17.200 Nicotine dependence, unspecified, uncomplicated
CPT/HCPCS: 99284; A9270

== ENCOUNTER 2018-09-09 20:59 | Emergency (ER) | payer MEDICARE ==
--- NOTE | 2018-09-09 21:42 | ER Document Report ---
ED General - General Chief Complaint: Head Injury Stated Complaint: FALL Time Seen by Provider: 09/09/18 21:22 Primary Care Provider: [facility] [Provider Group] - Follow up tomorrow Notes: Patient is a 63-year-old male that comes emergency department by EMS after he was found down on asphalt in a parking lot by police. Patient has a history of chronic alcohol and tobacco abuse, was seen earlier today and then left, he was noted to have swelling with bleeding to the left eyebrow and orbit area and he was found face down. Patient is arousable with sternal rub, he will then follow directions, however he is uncooperative with history and is telling me to leave him alone. TRAVEL OUTSIDE OF THE [place] IN LAST 30 DAYS: No - Related Data Allergies/Adverse Reactions: No Known Allergies Allergy (Verified 05/01/18 18:40) Past Medical History - General Information source: Patient, Emergency Med Personnel - Social History Smoking Status: Current Every Day Smoker Frequency of alcohol use: Heavy Drug Abuse: None Lives with: Alone Family History: Reviewed & Not Pertinent Neurological Medical History: Reports: Hx Cerebrovascular Accident. Denies: Hx Seizures Endocrine Medical History: Denies: Hx Diabetes Mellitus Type 1 Renal/ Medical History: Denies: Hx Peritoneal Dialysis Psychiatric Medical History: Reports: Hx Depression - Does not take medication. Ongoing - Immunizations Immunizations up to date: Yes Hx Diphtheria, Pertussis, Tetanus Vaccination: Yes Review of Systems - Review of Systems Constitutional: No symptoms reported EENT: See HPI Cardiovascular: No symptoms reported Respiratory: No symptoms reported Gastrointestinal: No symptoms reported Genitourinary: No symptoms reported Male Genitourinary: No symptoms reported Musculoskeletal: See HPI Skin: See HPI Hematologic/Lymphatic: No symptoms reported Neurological/Psychological: See HPI Physical Exam - Vital signs Vitals: Pulse Ox 99 09/09/18 21:06 - Notes Notes: GENERAL: Drowsy, somewhat difficult to arouse, smells of alcohol, appears intoxicated. HEAD: Normocephalic. Large abrasion over the left eyebrow and extending to the left eyelids with abrasion and soft tissue swelling. EYES: Pupils equal, round, and reactive to light. Extraocular movements intact. No fluorescein uptake, negative Nasreen sign, no hyphema, no noted foreign body. Intraocular pressures measured at 17 with 95% confidence. ENT: Oral mucosa moist, tongue midline. Oropharynx unremarkable. Airway patent. Nares patent, no nasal septal hematoma, TM's intact. NECK: Full range of motion. Supple. Trachea midline. LUNGS: Slightly decreased bilaterally, otherwise clear. No tenderness over the ribs, no signs of trauma. HEART: Regular rate and rhythm. No murmur ABDOMEN: Soft, non-tender. Non-distended. Bowel sounds present in all 4 quadrants. No signs of trauma. GENITOURINARY: No acute traumatic findings noted. EXTREMITIES: Moves all 4 extremities spontaneously. No edema, normal radial and dorsalis pedis pulses bilaterally. No cyanosis. Multiple superficial abrasions and bruises over the right lower extremity, normal distal pulses and sensation, normal movement. No tenderness over the hips, no other signs of trauma over the extremities noted that are new although there are multiple old areas of abrasion and bruising over the arms. BACK: no cervical, thoracic, lumbar midline tenderness. No saddle anesthesia, normal distal neurovascular exam. No noted signs of trauma. NEUROLOGICAL: Slurred speech, oriented to person and place, not clearly oriented to events [cranial nerves II through XII grossly intact]. PSYCH: Irritable SKIN: Warm, dry, normal turgor. No rashes or lesions noted. Course - Re-evaluation Re-evalutation: Patient arousable, intoxicated, cooperating with exam but not with history. CAT scan of the head shows contusion and hematoma but no fracture or intracranial bleed. Patient has very swollen eyelids, however no visual loss, no noted corneal abrasion or abnormality over the eye, no hemorrhage or orbital rupture, no hyphema, negative Nasreen sign. Orbital pressures of 17 with 95% confidence. Patient has multiple abrasions of the face and over the right leg, no other signs of injury on my evaluation, no wounds that need to be repaired. Blood chemistry is unremarkable. CAT scan of the cervical spine is unremarkable. Discussed with patient, I did offer case management because of his repeated falls and alcoholism, he repeats he is not interested. Discussed with him again, he is more receptive, casework manager consult was placed. Patient will need to sober up before he can leave, he is unsteady on his feet. Patient will be monitored in the emergency department until he is clinically sober. - Vital Signs Vital signs: Temp Pulse Resp BP Pulse Ox 97.3 F 18 134/78 H 100 02/26/19 21:08 09/10/18 00:01 09/10/18 00:01 09/10/18 00:01 - Laboratory Result Diagrams: 09/09/18 22:25 Laboratory results interpreted by me: 09/09/18 22:25 Sodium 135.1 L Carbon Dioxide 21 L BUN 6 L Creatinine 0.46 L Discharge - Discharge Clinical Impression: Alcohol abuse Traumatic hematoma of face Qualifiers: Encounter type: initial encounter Qualified Code(s): S00.83XA - Contusion of other part of head, initial encounter Alcohol intoxication Qualifiers: Complication of substance-induced condition: with unspecified complication Qualified Code(s): F10.929 - Alcohol use, unspecified with intoxication, unspecified Abrasion of right leg Qualifiers: Encounter type: initial encounter Qualified Code(s): S80.811A - Abrasion, right lower leg, initial encounter Condition: Stable Disposition: HOME, SELF-CARE Additional Instructions: Your imaging shows soft tissue swelling but no fracture or concerning finding is seen. Your eye examination does not show any concerning findings at this time. The swelling should resolve with time. Keep abrasions clean, clean with soap and water, you can apply topical antibiotic. You need to enter into a detox program for alcohol abuse. Follow-up with human services for additional evaluation and management. Return to the emergency department for any concerning symptoms. See head injury precautions listed below. At this point, there is no evidence that your head injury is serious. Observation is necessary, however. Take only clear liquids for the first few hours, unless told otherwise by the doctor. If no pain medication was prescribed, you may take acetaminophen according to the directions on the bottle. Do not take any medication that may alter your level of alertness (unless you've discussed it with the doctor first). Limit activity for the first 24 hours. Bed rest is best. During the first 24 hours, check to see approximately every two to three hours that the patient is easily arousable, responds normally, and can perform common tasks suc h as walking without difficulty. Contact your doctor or go to the hospital if any of the following things occur: Persistent vomiting, difficulty in arousing the patient, worsening or continued headache, or failure to improve as expected. Head injuries can cause symptoms that persist for a few days or even a few weeks. Referrals: [facility] [Provider Group] - Follow up tomorrow
--- NOTE | 2018-09-09 22:34 | RADIOLOGY REPORT (SQ) ---
CT BRAIN AND CERVICAL SPINE WITHOUT IV CONTRAST HISTORY: Trauma. COMPARISON: None. EXAM DATE: 09/09/2018 21:30 TECHNIQUE: CT scan of the brain and cervical spine without IV contrast. This exam was performed according to our departmental dose-optimization program, which includes automated exposure control, adjustment of the mA and/or kV according to patient size and/or use of iterative reconstruction technique. FINDINGS: BRAIN: The ventricles, cisterns, and sulci are age-appropriate. No acute intracranial hemorrhage or extra-axial fluid collection. No midline shift or mass effect. There is sinus mucosal disease involving the ethmoid air cells. The mastoid air cells are clear however. No depressed skull fracture. Large left periorbital and right parietal. Sinus swelling is noted. CERVICAL SPINE: No acute cervical fracture or prevertebral soft tissue swelling. The disc spaces are preserved. There is straightening of the normal cervical lordosis, which may be due to cervical collar, muscle spasm, or patient positioning. The facet joints and disc spaces are intact. No advanced canal stenosis is identified. IMPRESSION: 1. Left periorbital and right parietal soft tissue swelling, without acute intracranial hemorrhage or skull fracture. 2. No acute cervical fracture or subluxation.
--- NOTE | 2018-09-09 22:36 | RADIOLOGY REPORT (SQ) ---
EXAM DESCRIPTION: XR TIBIA FIBULA 2 VIEWS COMPLETED DATE/TME: 09/09/2018 21:30 CLINICAL HISTORY: 63 years Male, fall, injury COMPARISON: None. Findings: Bones, joints, and soft tissues of the RIGHT XR TIBIA FIBULA 2 VIEWS appear intact. IMPRESSION: No acute findings.
[2018-09-09 22:54] LABS: ANION GAP 15 (5-19); BLOOD UREA NITROGEN 6 mg/dL (7-20); CALCIUM 9.1 mg/dL (8.4-10.2); CARBON DIOXIDE 21 mmol/L (22-30); CHLORIDE 99 mmol/L (98-107); GLUCOSE 97 mg/dL (75-110); POTASSIUM 4.7 mmol/L (3.6-5.0); SODIUM 135.1 mmol/L (137-145)
[2018-09-10 07:21] VITALS: BP 101/65
== END 2018-09-10 10:16 | disposition home or self-care (01) ==
LOC: ER 20:59
DX: S00.83XA Contusion of other part of head, initial encounter (principal); S80.811A Abrasion, right lower leg, initial encounter; F10.929 Alcohol use, unspecified with intoxication, unspecified; X58.XXXA Exposure to other specified factors, initial encounter; Z86.73 Personal history of transient ischemic attack (TIA), and cerebral infarction without residual deficits
CPT/HCPCS: 36415; 70450; 72125; 80048; 99284

== ENCOUNTER 2018-09-13 05:23 | Emergency (ER) | payer MEDICARE ==
[2018-09-13] MEDS ORDERED: IBUPROFEN 600 MG TABLET PO ONE (05:31)
[2018-09-13 05:32] VITALS: BP 149/80
[2018-09-13] MEDS ORDERED: FAMOTIDINE 20 MG TABLET PO ONE (05:32)
--- NOTE | 2018-09-13 05:38 | ER Document Report ---
ED GI/ - General Stated Complaint: ABDOMINAL PAIN Time Seen by Provider: 09/13/18 05:26 Primary Care Provider: [facility] [Provider Group] - Follow up as needed Notes: Patient is a 63-year-old male that comes to the emergency department for chief complaint of pain over a hernia in his left lower abdomen. He states he intermittently gets pain, more noticeable today. Denies vomiting, had a normal bowel movement within the past day, denies fever or chills. He denies any other complaints. He is a history of tobacco abuse, alcohol abuse and dependence. He came by EMS. TRAVEL OUTSIDE OF THE [place] IN LAST 30 DAYS: No - Related Data Allergies/Adverse Reactions: No Known Allergies Allergy (Verified 05/01/18 18:40) Past Medical History - General Information source: Patient - Social History Smoking Status: Current Every Day Smoker Smoking Education Provided: Yes - <3 min Frequency of alcohol use: Heavy Drug Abuse: None Lives with: Alone Family History: Reviewed & Not Pertinent Neurological Medical History: Reports: Hx Cerebrovascular Accident. Denies: Hx Seizures Endocrine Medical History: Denies: Hx Diabetes Mellitus Type 1 Renal/ Medical History: Denies: Hx Peritoneal Dialysis Psychiatric Medical History: Reports: Hx Depression - Does not take medication. Ongoing - Immunizations Immunizations up to date: Yes Hx Diphtheria, Pertussis, Tetanus Vaccination: Yes Review of Systems - Review of Systems Constitutional: No symptoms reported EENT: No symptoms reported Cardiovascular: No symptoms reported Respiratory: No symptoms reported Gastrointestinal: See HPI Genitourinary: No symptoms reported Male Genitourinary: No symptoms reported Musculoskeletal: No symptoms reported Skin: No symptoms reported Hematologic/Lymphatic: No symptoms reported Neurological/Psychological: No symptoms reported Physical Exam - Vital signs Vitals: Temp Pulse Resp BP Pulse Ox 98.0 F 111 H 16 149/80 H 100 09/13/18 05:26 09/13/18 05:26 09/13/18 05:26 09/13/18 05:26 09/13/18 05:26 - Notes Notes: GENERAL: Disheveled in appearance HEAD: Old scar over the left scalp, multiple healing abrasions over the face generally, no new wounds noted. EYES: Pupils equal, round, and reactive to light. Extraocular movements intact. ENT: Oral mucosa moist, tongue midline. Oropharynx unremarkable. Airway patent. Nares patent, no nasal septal hematoma, TM's intact. NECK: Full range of motion. Supple. Trachea midline. LUNGS: Clear to auscultation bilaterally, no wheezes, rales, or rhonchi. No respiratory distress. HEART: Regular rate and rhythm. No murmur ABDOMEN: Left inguinal hernia noted, no surrounding erythema, area is soft, no hardness noted, area easily reduced completely, the area does come back out. No notable tenderness. Otherwise unremarkable abdomen. GENITOURINARY: No swelling or concerning obvious findings EXTREMITIES: Moves all 4 extremities spontaneously. No edema, normal radial and dorsalis pedis pulses bilaterally. No cyanosis. BACK: no cervical, thoracic, lumbar midline tenderness. No saddle anesthesia, normal distal neurovascular exam. NEUROLOGICAL: Alert and oriented x3. Normal speech. [cranial nerves II through XII grossly intact]. PSYCH: Normal affect, normal mood. SKIN: Warm, dry, normal turgor. No rashes or lesions noted. Course - Re-evaluation Re-evalutation: Patient is somewhat disheveled but he is nontoxic in appearance. He is not tachycardic on my evaluation, this was rechecked and normal. Abdominal exam is benign, he does have a left inguinal hernia but this was easily reduced. There is no erythema or hardness to the area. Patient with no symptoms of incarceration. He himself agrees that he has been able to reduce it at home. Discussed surgical clinic follow-up, discussed signs of incarceration to return for. Patient states understanding and agreement. Stable at time of discharge. - Vital Signs Vital signs: Temp Pulse Resp BP Pulse Ox 98.0 F 98 16 149/80 H 100 09/13/18 05:26 09/13/18 05:41 09/13/18 05:26 09/13/18 05:26 09/13/18 05:26 Discharge - Discharge Clinical Impression: Left inguinal hernia Condition: Stable Disposition: HOME, SELF-CARE Additional Instructions: The hernia is reducible as we discussed. Follow-up with the surgical clinic for additional management and to have this repaired. See referral. Come back if you worsen (if you cannot push the area back in, hardening of the area, reddening of the area, vomiting, severe pain, or any other concerning or worsening symptoms). Referrals: [facility] [Provider Group] - Follow up as needed
== END 2018-09-13 05:44 | disposition home or self-care (01) ==
LOC: ER 05:23
DX: K40.90 Unilateral inguinal hernia, without obstruction or gangrene, not specified as recurrent (principal); F17.200 Nicotine dependence, unspecified, uncomplicated
CPT/HCPCS: 99284; A9270 ×2

== ENCOUNTER 2018-10-12 16:13 | Emergency (ER) | payer MEDICARE ==
[2018-10-12 16:21] VITALS: BP 141/81
[2018-10-12] MEDS ORDERED: DIPH/PERTUSS(ACELL)/TETANUS VAC/PF 0.5 ML SYR (>=10YO) IM ONE (16:31)
--- NOTE | 2018-10-12 16:46 | ER Document Report ---
ED Medical Screen (RME) - General Chief Complaint: Fall Stated Complaint: FALL INJURY Time Seen by Provider: 10/12/18 16:30 Mode of Arrival: Ambulatory Information source: Patient TRAVEL OUTSIDE OF THE [place] IN LAST 30 DAYS: No - HPI Patient complains to provider of: fall Onset: This morning - pt fell earlier today -- c/o bilateral knee pain and R hand pain. - Related Data Allergies/Adverse Reactions: No Known Allergies Allergy (Verified 10/12/18 16:16) Past Medical History - Social History Frequency of alcohol use: Heavy Neurological Medical History: Reports: Hx Cerebrovascular Accident. Denies: Hx Seizures Endocrine Medical History: Denies: Hx Diabetes Mellitus Type 1 Renal/ Medical History: Denies: Hx Peritoneal Dialysis Psychiatric Medical History: Reports: Hx Depression - Does not take medication. Ongoing - Immunizations Immunizations up to date: Yes Hx Diphtheria, Pertussis, Tetanus Vaccination: Yes History of Influenza Vaccine for 04/2017 - 09/2017 Season: Unknown Physical Exam - Vital signs Vitals: Temp Pulse Resp BP Pulse Ox 98.8 F 107 H 16 141/81 H 96 10/12/18 16:19 10/12/18 16:19 10/12/18 16:19 10/12/18 16:19 10/12/18 16:19 Course - Vital Signs Vital signs: Temp Pulse Resp BP Pulse Ox 98.8 F 107 H 16 141/81 H 96 10/12/18 16:19 10/12/18 16:19 10/12/18 16:19 10/12/18 16:19 10/12/18 16:19
--- NOTE | 2018-10-12 17:31 | RADIOLOGY REPORT (SQ) ---
EXAM DESCRIPTION: KNEE BILATERAL 1-2 VIEWS COMPLETED DATE/TIME: 10/12/2018 5:22 pm REASON FOR STUDY: fall COMPARISON: None. NUMBER OF VIEWS: Two views. TECHNIQUE: AP and lateral radiographic images acquired of the right and left knee. LIMITATIONS: None. FINDINGS: MINERALIZATION: Normal. BONES: No acute fracture or dislocation. No worrisome bone lesions. JOINT: No effusion. SOFT TISSUES: No soft tissue swelling. No radio-opaque foreign body. OTHER: No other significant finding. IMPRESSION: NEGATIVE STUDY OF THE RIGHT AND LEFT KNEES. NO RADIOGRAPHIC EVIDENCE OF ACUTE INJURY. TECHNICAL DOCUMENTATION: JOB ID: [id number] [employer]- All Rights Reserved Reading location - IP/workstation name: [email or web address]
--- NOTE | 2018-10-12 17:32 | RADIOLOGY REPORT (SQ) ---
EXAM DESCRIPTION: HAND RIGHT 3 VIEWS COMPLETED DATE/TIME: 10/12/2018 5:22 pm REASON FOR STUDY: fall COMPARISON: 04/14/2018. EXAM PARAMETERS: NUMBER OF VIEWS: Three views. TECHNIQUE: AP, lateral and oblique radiographic images acquired of the right hand. LIMITATIONS: None. FINDINGS: MINERALIZATION: Normal. BONES: No acute fracture or dislocation. Old healed fracture of the 5th metacarpal. Degenerative ch anges with osteophytes in the interphalangeal joints. No worrisome bone lesions. JOINTS: No effusions. SOFT TISSUES: No soft tissue swelling. No foreign body. OTHER: No other significant finding. IMPRESSION: CHRONIC CHANGES. NO RADIOGRAPHIC EVIDENCE OF ACUTE INJURY. TECHNICAL DOCUMENTATION: JOB ID: [id number] [employer]- All Rights Reserved Reading location - IP/workstation name: [email or web address]
== END 2018-10-12 18:50 | disposition left against medical advice (07) ==
LOC: ER 16:13
DX: M25.561 Pain in right knee (principal); M25.562 Pain in left knee; M79.641 Pain in right hand; W19.XXXA Unspecified fall, initial encounter; Z53.20 Procedure and treatment not carried out because of patient's decision for unspecified reasons; E11.9 Type 2 diabetes mellitus without complications
CPT/HCPCS: 90715; 99281

== ENCOUNTER 2018-10-22 23:26 | Emergency (ER) | payer MEDICARE ==
--- NOTE | 2018-10-23 00:49 | ER Document Report ---
ED Fall - General Chief Complaint: Fall Injury Stated Complaint: FALL,ARM PAIN Time Seen by Provider: 10/23/18 00:48 Mode of Arrival: Ambulatory Information source: Patient Notes: HISTORY OF PRESENT ILLNESS: Patient is a 63-year-old male with a past medical history of chronic alcohol abuse who presents with acute alcohol intoxication with mechanical fall. Patient is unable to give details of his fall, however he is able to report that he has been drinking "a lot" and fell onto the top of his head. He currently denies pain. Of note, EMS reported that the patient had multiple skin tears on both of his arms, to which the patient reported not knowing about until arriving to the hospital. Location: Head/arms Onset: Prior to arrival Provocation: Alcohol intoxication Quality: Aching Radiation: None Severity: Mild Timing: Constant Associated symptoms: No vision changes, no ataxia, no confusion/disorientation REVIEW OF SYSTEMS: CONSTITUTIONAL : Positive for alcohol intoxication. Denies fever or chills, no sweats. Denies recent illness. EENT: Denies eye, ear, throat, or mouth pain or symptoms. Denies nasal or sinus congestion. CARDIOVASCULAR: Denies chest pain. RESPIRATORY: Denies cough, cold, or chest congestion. Denies shortness of breath, difficulty breathing, or wheezing. GASTROINTESTINAL: Denies abdominal pain. Denies nausea, vomiting, or diarrhea. Denies constipation. GENITOURINARY: Denies difficulty urinating, painful urination, burning, frequency, or blood in urine. MUSCULOSKELETAL: Denies neck or back pain or joint pain or swelling. SKIN: Positive for skin avulsions. Denies rash or skin lesions. HEMATOLOGIC : Denies easy bruising or bleeding. LYMPHATIC: Denies swollen, enlarged glands. NEUROLOGICAL: Denies altered mental status or loss of consciousness. Denies headache. Denies weakness or paralysis or loss of use of either side. Denies problems with gait or speech. Denies sensory or motor loss. PSYCHIATRIC: Denies anxiety or stress or depression. All other systems reviewed and negative. PHYSICAL EXAMINATION: GENERAL: Intoxicated but well-appearing, well-nourished and in no acute distress. HEAD: Atraumatic, normocephalic. No scalp deformity, depression, or crepitance. EYES: Pupils are 3 mm and equal/round/reactive to light, extraocular movements intact, sclera anicteric, conjunctiva are injected bilaterally. ENT: Nares patent bilaterally, oropharynx clear without exudates or palatal petechia. Moist mucous membranes. No tonsil hypertrophy. NECK: Normal range of motion, supple without lymphadenopathy. LUNGS: Breath sounds present, equal, and clear to auscultation bilaterally. No wheezes, rales, or rhonchi. HEART: Regular rate and rhythm without murmurs, rubs, or gallops. 2+ peripheral pulses. Normal capillary refill. ABDOMEN: Soft, nontender, nondistended. Normoactive bowel sounds. No guarding, no rebound. No masses appreciated. BACK: Normal contour, no midline tenderness. Rectal exam deferred. GENITAL: Deferred. EXTREMITIES: Small skin avulsion to the bilateral forearms, bleeding is controlled. Normal range of motion, no pitting or edema. No cyanosis. NEUROLOGICAL: Cranial nerves are grossly intact. No focal neurological deficits. Moves all extremities spontaneously and on command. PSYCH: Normal mood, normal affect. No suicidal thoughts/ideations. No homicidal thoughts/ideations. No hallucinations. SKIN: Warm, dry, normal turgor, no rashes or lesions noted. ASSESSMENT AND PLAN: This patient is a 63-year-old male who presents with altered mental status that likely secondary to alcohol intoxication and bilateral skin avulsions to his arms. 1. Will obtain CT head, ethanol panel, give tetanus shot with oral Keflex, and reassess. 2. Will allow the patient to sober up into the morning. TRAVEL OUTSIDE OF THE [place] IN LAST 30 DAYS: No - Related data Allergies/Adverse Reactions: diphenhydramine [From Benadryl] Allergy (Verified 10/23/18 00:06) Past Medical History - General Information source: Patient - Social History Smoking Status: Current Every Day Smoker Chew tobacco use (# tins/day): No Frequency of alcohol use: Heavy Drug Abuse: None Lives with: Alone, Homeless Family History: Reviewed & Not Pertinent Patient has suicidal ideation: No Patient has homicidal ideation: No - Past Medical History Cardiac Medical History: Reports: None Pulmonary Medical History: Reports: None EENT Medical History: Reports: None Neurological Medical History: Reports: Hx Cerebrovascular Accident. Denies: Hx Seizures Endocrine Medical History: Reports: None. Denies: Hx Diabetes Mellitus Type 1 Renal/ Medical History: Reports: None. Denies: Hx Peritoneal Dialysis Malignancy Medical History: Reports None GI Medical History: Reports: None Musculoskeletal Medical History: Reports None Skin Medical History: Reports None Psychiatric Medical History: Reports: Hx Depression - Does not take medication. Ongoing Traumatic Medical History: Reports: None Infectious Medical History: Reports: None Surgical Hx: Negative Past Surgical History: Reports: None - Immunizations Immunizations up to date: Yes Hx Diphtheria, Pertussis, Tetanus Vaccination: Yes Physical Exam - Vital signs Vitals: Temp Pulse Resp BP Pulse Ox 98.3 F 96 16 130/84 H 97 10/23/18 00:09 10/23/18 00:09 10/23/18 00:09 10/23/18 00:09 10/23/18 00:09 Course - Re-evaluation Re-evalutation: 10/23/18 04:27 Patient had a negative head CT. Blood alcohol level is elevated. He will be observed when he will be reevaluated for clinical sobriety. Plan has been discussed in signout given to Dr. Cooley. - Vital Signs Vital signs: Temp Pulse Resp BP Pulse Ox 98.3 F 96 16 130/84 H 97 10/23/18 00:09 10/23/18 00:09 10/23/18 00:09 10/23/18 00:09 10/23/18 00:09 - Diagnostic Test Radiology reviewed: Image reviewed, Reports reviewed - Transfer of Care Care transferred to following provider: Dr. Cooley Discharge - Discharge Clinical Impression: Skin avulsion Alcohol intoxication Qualifiers: Complication of substance-induced condition: uncomplicated Qualified Code(s): F10.920 - Alcohol use, unspecified with intoxication, uncomplicated Condition: Good Disposition: HOME, SELF-CARE Instructions: Chronic Alcoholism ([facility]), Family Physicians / Practices, Skin Tear ([facility]) Additional Instructions: You have been evaluated in the Emergency Department for alcohol intoxication. While here, you had a scan of your head that was normal and it is now safe to be discharged home. Please follow-up with your primary physician as instructed in 1 week to be rechecked. Return to the Emergency Department if you experience difficulty walking, vision changes, confusion/disorientation, memory deficits, or any other concerning symptoms. Prescriptions: Cephalexin Monohydrate [Keflex 500 mg Capsule] 500 mg PO Q6H 7 Days #28 capsule Print Language: [place]
[2018-10-23] MEDS ORDERED: BACITRACIN ZINC OINTMENT 15 GM TP ONE (01:18)
--- NOTE | 2018-10-23 02:15 | RADIOLOGY REPORT (SQ) ---
CLINICAL HISTORY: Fall COMPARISON: 09/09/2018. TECHNIQUE: CT HEAD WITHOUT IV CONTRAST on 10/23/2018 1:18 AM CDT This exam was performed according to our departmental dose-optimization program, which includes automated exposure control, adjustment of the mA and/or kV according to patient size and/or use of iterative reconstruction technique. FINDINGS: There is no acute hemorrhage, mass effect or midline shift. Rodriguez-white differentiation is preserved. There is no hydrocephalus. There is no significant volume loss for age. There are mild patchy hypodensities within the periventricular and subcortical white matter, consistent with microangiopathic ischemic changes. There is evidence of prior samaria holes in the left frontal and left parietal calvarium. Orbits and globes are unremarkable. The paranasal sinuses are clear. Mastoid air cells are clear. IMPRESSION: No acute intracranial findings.
[2018-10-23] MEDS ORDERED: CEPHALEXIN 500 MG CAPSULE PO ONE (03:16)
[2018-10-23] MEDS ORDERED: DIPH/PERTUSS(ACELL)/TETANUS VAC/PF 0.5 ML SYR (>=10YO) IM ONE (03:16)
[2018-10-23 05:02] VITALS: BP 122/65
== END 2018-10-23 05:00 | disposition home or self-care (01) ==
LOC: ER 23:26
DX: S51.802A Unspecified open wound of left forearm, initial encounter (principal); S51.801A Unspecified open wound of right forearm, initial encounter; W19.XXXA Unspecified fall, initial encounter; F10.120 Alcohol abuse with intoxication, uncomplicated; R41.82 Altered mental status, unspecified; F17.200 Nicotine dependence, unspecified, uncomplicated; Z86.73 Personal history of transient ischemic attack (TIA), and cerebral infarction without residual deficits; Z23 Encounter for immunization; Z88.8 Allergy status to other drugs, medicaments and biological substances
CPT/HCPCS: 99284; 90471; 36415; 80307; 70450; 90715; A9270; J3490